=== PATIENT | male | born 1935 | race Caucasian/White ===

== ENCOUNTER 2018-07-13 16:52 | Inpatient (IN) | payer OTHER, MEDICARE ==
[2018-07-13] MEDS ORDERED: SODIUM CHLORIDE 0.9% 1,000 ML IV STA ×2 (16:57)
--- NOTE | 2018-07-13 16:59 | ED ---
Weakness HPI - General Stated complaint: Weakness Time Seen by Provider: 07/13/18 16:56 Source: RN notes reviewed, old records reviewed - History of Present Illness Initial comments: This is an 82-year-old male the ER for evaluation presents today for evaluation of weakness. Patient's poor strain presents with EMS obtained history from patient's daughter who he lives with. Per EMS patient has been increasing decreased activity level today, unable to get out of bed unable to walk, short of breath and has been not been eating or drinking appropriately. Per EMS patient was short of breath per transfer, mildly hypoxic without any significant complaint. Otherwise history obtained from patient's prior chart MD Complaint: generalized weakness, lack of energy, difficulty walking -: days(s) (1) Location: generalized Severity: moderate Severity scale (1-10): 4 Quality: aching Consistency: constant Improves with: none Worsens with: movement, exertion Context: history of similar Associated Symptoms: confusion, fever/chills, loss of appetite, nausea/vomiting , shortness of breath - Related Data Home Medications Medication Instructions Recorded Confirmed Aspirin [[place] Aspirin EC] 81 mg PO DAILY 07/13/18 07/13/18 Chlorthalidone 25 mg PO DAILY 07/13/18 07/13/18 Docusate [Colace] 100 mg PO BID 07/13/18 07/13/18 Flaxseed Oil 1,000 mg PO DAILY 07/13/18 07/13/18 HYDROcodone/APAP 7.5-325MG [[place] 1 tab PO Q6HR PRN 07/13/18 07/13/18 7.5-325] Ipratropium-Albuterol Nebulize 3 ml INHALATION RT-QID 07/13/18 07/13/18 [Duoneb 0.5 mg-3 mg/3 ml Soln] Metoprolol Tartrate [Lopressor] 25 mg PO BID 07/13/18 07/13/18 Niacin 2,000 mg PO DAILY 07/13/18 07/13/18 Rosuvastatin Calcium [Crestor] 5 mg PO DIRECTED 07/13/18 07/13/18 Warfarin Sodium [Coumadin] 3.75 mg PO SUTUTH 07/13/18 07/13/18 Warfarin [Coumadin] 2.5 mg PO MOWEFRSA 07/13/18 07/13/18 Allergies Allergy/AdvReac Type Severity Reaction Status Date / Time No Known Allergies Allergy Verified 07/13/18 17:56 Review of Systems ROS Statement: Those systems with pertinent positive or pertinent negative responses have been documented in the HPI. ROS Other: All systems not noted in ROS Statement are negative. General Exam Limitations: altered mental status General appearance: alert, anxious, lethargic, obese Head exam: Present: atraumatic, normocephalic, normal inspection Eye exam: Present: normal appearance, PERRL, EOMI. Absent: scleral icterus, conjunctival injection, periorbital swelling ENT exam: Present: normal exam, mucous membranes dry Neck exam: Present: normal inspection. Absent: tenderness, meningismus, lymphadenopathy Respiratory exam: Present: wheezes, rales, accessory muscle use, decreased breath sounds, prolonged expiratory. Absent: rhonchi, stridor Cardiovascular Exam: Present: regular rate, bradycardia, normal heart sounds. Absent: systolic murmur, diastolic murmur, rubs, gallop, clicks GI/Abdominal exam: Present: soft, normal bowel sounds. Absent: distended, tenderness, guarding, rebound, rigid Extremities exam: Present: normal inspection, full ROM, pedal edema, joint swelling. Absent: tenderness, calf tenderness Back exam: Present: normal inspection Neurological exam: Present: alert, oriented X3, CN II-XII intact Psychiatric exam: Present: normal affect, normal mood Skin exam: Present: warm, dry, intact, normal color. Absent: rash Course Vital Signs 07/13/18 07/13/18 17:04 20:50 Temperature 98.0 F Pulse Rate 60 60 Respiratory 20 21 Rate Blood Pressure 163/81 166/81 O2 Sat by Pulse 96 96 Oximetry - Reevaluation(s) Reevaluation #1: 07/13/18 21:20 Medical record is reviewed Reevaluation #2: 07/13/18 21:20 Patient is no improvement complaining of weakness shortness of breath EKG Findings - EKG Comments: EKG Findings:: EKG shows rate of 60, QRS 190, QTc 458 Medical Decision Making - Lab Data Result diagrams: 07/13/18 17:15 07/13/18 17:05 Lab Results 07/13/18 07/13/18 07/13/18 Range/Units 17:05 17:05 17:05 WBC (3.8-10.6) k/uL RBC (4.30-5.90) m/uL Hgb (13.0-17.5) gm/dL Hct (39.0-53.0) % MCV (80.0-100.0) fL MCH (25.0-35.0) pg MCHC (31.0-37.0) g/dL RDW (11.5-15.5) % Plt Count (150-450) k/uL Neutrophils % % Lymphocytes % % Monocytes % % Eosinophils % % Basophils % % Neutrophils # (1.3-7.7) k/uL Lymphocytes # (1.0-4.8) k/uL Monocytes # (0-1.0) k/uL Eosinophils # (0-0.7) k/uL Basophils # (0-0.2) k/uL PT (9.0-12.0) sec INR (<1.2) APTT (22.0-30.0) sec Sodium 134 L (137-145) mmol/L Potassium 3.6 (3.5-5.1) mmol/L Chloride 91 L (98-107) mmol/L Carbon Dioxide 33 H (22-30) mmol/L Anion Gap 10 mmol/L BUN 28 H (9-20) mg/dL Creatinine 1.32 H (0.66-1.25) mg/dL Est GFR (CKD-EPI)AfAm 58 (>60 ml/min/1.73 sqM) Est GFR (CKD-EPI)NonAf 51 (>60 ml/min/1.73 sqM) Glucose 154 H (74-99) mg/dL Lactic Ac Sepsis Rflx Plasma Lactic Acid Sebastian 2.1 H* (0.7-2.0) mmol/L Calcium 9.5 (8.4-10.2) mg/dL Phosphorus 2.9 (2.5-4.5) mg/dL Magnesium 1.5 L (1.6-2.3) mg/dL Total Bilirubin 1.1 (0.2-1.3) mg/dL AST 28 (17-59) U/L ALT 42 (21-72) U/L Alkaline Phosphatase 75 (38-126) U/L Total Creatine Kinase 27 L (55-170) U/L CK-MB (CK-2) <0.2 (0.0-2.4) ng/mL CK-MB (CK-2) Rel Index Troponin I 0.056 H* (0.000-0.034) ng/mL Total Protein 6.6 (6.3-8.2) g/dL Albumin 3.8 (3.5-5.0) g/dL Urine Color Urine Appearance (Clear) Urine pH (5.0-8.0) Ur Specific Rule (1.001-1.035) Urine Protein (Negative) Urine Glucose (UA) (Negative) Urine Ketones (Negative) Urine Blood (Negative) Urine Nitrite (Negative) Urine Bilirubin (Negative) Urine Urobilinogen (<2.0) mg/dL Ur Leukocyte Esterase (Negative) Urine WBC (0-5) /hpf Ur Squamous Epith Cells (0-4) /hpf Urine Mucus (None) /hpf 07/13/18 07/13/18 07/13/18 Range/Units 17:05 17:15 18:03 WBC 13.2 H (3.8-10.6) k/uL RBC 5.50 (4.30-5.90) m/uL Hgb 16.6 (13.0-17.5) gm/dL Hct 51.5 (39.0-53.0) % MCV 93.5 (80.0-100.0) fL MCH 30.1 (25.0-35.0) pg MCHC 32.2 (31.0-37.0) g/dL RDW 14.4 (11.5-15.5) % Plt Count 205 (150-450) k/uL Neutrophils % 92 % Lymphocytes % 3 % Monocytes % 3 % Eosinophils % 0 % Basophils % 0 % Neutrophils # 12.1 H (1.3-7.7) k/uL Lymphocytes # 0.5 L (1.0-4.8) k/uL Monocytes # 0.5 (0-1.0) k/uL Eosinophils # 0.0 (0-0.7) k/uL Basophils # 0.0 (0-0.2) k/uL PT 13.2 H (9.0-12.0) sec INR 1.3 H (<1.2) APTT 27.1 (22.0-30.0) sec Sodium (137-145) mmol/L Potassium (3.5-5.1) mmol/L Chloride (98-107) mmol/L Carbon Dioxide (22-30) mmol/L Anion Gap mmol/L BUN (9-20) mg/dL Creatinine (0.66-1.25) mg/dL Est GFR (CKD-EPI)AfAm (>60 ml/min/1.73 sqM) Est GFR (CKD-EPI)NonAf (>60 ml/min/1.73 sqM) Glucose (74-99) mg/dL Lactic Ac Sepsis Rflx Y Plasma Lactic Acid Sebastian (0.7-2.0) mmol/L Calcium (8.4-10.2) mg/dL Phosphorus (2.5-4.5) mg/dL Magnesium (1.6-2.3) mg/dL Total Bilirubin (0.2-1.3) mg/dL AST (17-59) U/L ALT (21-72) U/L Alkaline Phosphatase (38-126) U/L Total Creatine Kinase (55-170) U/L CK-MB (CK-2) (0.0-2.4) ng/mL CK-MB (CK-2) Rel Index Troponin I (0.000-0.034) ng/mL Total Protein (6.3-8.2) g/dL Albumin (3.5-5.0) g/dL Urine Color Urine Appearance (Clear) Urine pH (5.0-8.0) Ur Specific Rule (1.001-1.035) Urine Protein (Negative) Urine Glucose (UA) (Negative) Urine Ketones (Negative) Urine Blood (Negative) Urine Nitrite (Negative) Urine Bilirubin (Negative) Urine Urobilinogen (<2.0) mg/dL Ur Leukocyte Esterase (Negative) Urine WBC (0-5) /hpf Ur Squamous Epith Cells (0-4) /hpf Urine Mucus (None) /hpf 07/13/18 Range/Units 20:40 WBC (3.8-10.6) k/uL RBC (4.30-5.90) m/uL Hgb (13.0-17.5) gm/dL Hct (39.0-53.0) % MCV (80.0-100.0) fL MCH (25.0-35.0) pg MCHC (31.0-37.0) g/dL RDW (11.5-15.5) % Plt Count (150-450) k/uL Neutrophils % % Lymphocytes % % Monocytes % % Eosinophils % % Basophils % % Neutrophils # (1.3-7.7) k/uL Lymphocytes # (1.0-4.8) k/uL Monocytes # (0-1.0) k/uL Eosinophils # (0-0.7) k/uL Basophils # (0-0.2) k/uL PT (9.0-12.0) sec INR (<1.2) APTT (22.0-30.0) sec Sodium (137-145) mmol/L Potassium (3.5-5.1) mmol/L Chloride (98-107) mmol/L Carbon Dioxide (22-30) mmol/L Anion Gap mmol/L BUN (9-20) mg/dL Creatinine (0.66-1.25) mg/dL Est GFR (CKD-EPI)AfAm (>60 ml/min/1.73 sqM) Est GFR (CKD-EPI)NonAf (>60 ml/min/1.73 sqM) Glucose (74-99) mg/dL Lactic Ac Sepsis Rflx Plasma Lactic Acid Sebastian (0.7-2.0) mmol/L Calcium (8.4-10.2) mg/dL Phosphorus (2.5-4.5) mg/dL Magnesium (1.6-2.3) mg/dL Total Bilirubin (0.2-1.3) mg/dL AST (17-59) U/L ALT (21-72) U/L Alkaline Phosphatase (38-126) U/L Total Creatine Kinase (55-170) U/L CK-MB (CK-2) (0.0-2.4) ng/mL CK-MB (CK-2) Rel Index Troponin I (0.000-0.034) ng/mL Total Protein (6.3-8.2) g/dL Albumin (3.5-5.0) g/dL Urine Color Yellow Urine Appearance Clear (Clear) Urine pH 5.5 (5.0-8.0) Ur Specific Rule 1.017 (1.001-1.035) Urine Protein 1+ H (Negative) Urine Glucose (UA) Negative (Negative) Urine Ketones Negative (Negative) Urine Blood Negative (Negative) Urine Nitrite Negative (Negative) Urine Bilirubin Negative (Negative) Urine Urobilinogen <2.0 (<2.0) mg/dL Ur Leukocyte Esterase Negative (Negative) Urine WBC 1 (0-5) /hpf Ur Squamous Epith Cells <1 (0-4) /hpf Urine Mucus Rare H (None) /hpf Disposition Clinical Impression: Dehydration, Weakness, ARF (acute renal failure), Hypomagnesemia Disposition: ADMITTED IP TO THIS HOSP Condition: Fair Is patient prescribed a controlled substance at d/c from ED?: No Referrals: None,Stated [REFERRING] - 1-2 days
[2018-07-13 17:45] LABS: Basophils % (A) 0 %; Eosinophils % (A) 0 %; HCT 51.5 % (39.0-53.0); HGB 16.6 gm/dL (13.0-17.5); Lymphocytes # (A) 0.5 k/uL (1.0-4.8); Lymphocytes % (A) 3 %; MCH 30.1 pg (25.0-35.0); MCHC 32.2 g/dL (31.0-37.0); MCV 93.5 fL (80.0-100.0); Monocytes # (A) 0.5 k/uL (0-1.0); Monocytes % (A) 3 %; Neutrophils # (A) 12.1 k/uL (1.3-7.7); Neutrophils % (A) 92 %; Platelet Count 205 k/uL (150-450); RDW 14.4 % (11.5-15.5); WBC 13.2 k/uL (3.8-10.6)
[2018-07-13 17:58] LABS: Albumin 3.8 g/dL (3.5-5.0); Calcium 9.5 mg/dL (8.4-10.2); Magnesium 1.5 mg/dL (1.6-2.3); Phosphorus 2.9 mg/dL (2.5-4.5); Potassium 3.6 mmol/L (3.5-5.1); Total Bilirubin 1.1 mg/dL (0.2-1.3); Total Protein 6.6 g/dL (6.3-8.2)
[2018-07-13 18:01] LABS: Creatine Kinase 27 U/L (55-170); INR 1.3 (<1.2); Partial Thromboplastin Time 27.1 sec (22.0-30.0); Prothrombin Time 13.2 sec (9.0-12.0)
[2018-07-13 18:14] LABS: Creatine Kinase MB <0.2 ng/mL (0.0-2.4)
--- NOTE | 2018-07-13 18:16 | XR ---
EXAMINATION TYPE: XR chest 2V DATE OF EXAM: 07/13/2018 COMPARISON: NONE HISTORY: Weakness TECHNIQUE: Frontal and lateral views of the chest are obtained. FINDINGS: Heart is enlarged. There is no gross heart failure. I see no pleural effusion. Lungs appea r clear of consolidation. There is a 2 cm sharply marginated nodular density in the left upper lobe. There is left axillary pacemaker with the lead tips over the right ventricle. There are sternal wires . IMPRESSION: Moderate cardiomegaly. Left upper lobe nodule. Recommend comparison with old exams.
[2018-07-13 18:40] LABS: Troponin I 0.056 ng/mL (0.000-0.034)
[2018-07-13 21:05] LABS: Appearance,Urine Clear (Clear); Bilirubin,Urine Negative (Negative); Blood,Urine Negative (Negative); Color,Urine Yellow; Glucose,Urine (UA) Negative (Negative); Ketones,Urine Negative (Negative); Leukocyte Esterase,Urine Negative (Negative); Mucus,Urine Rare /hpf; Nitrite,Urine Negative (Negative); PH, Urine 5.5 (5.0-8.0); Protein,Urine 1+ (Negative); Specific Gravity,Urine 1.017 (1.001-1.035); Squamous Epithelial Cell,Urine <1 /hpf (0-4); Urobilinogen,Urine <2.0 mg/dL (<2.0); WBC,Urine 1 /hpf (0-5)
[2018-07-13] MEDS ORDERED: IPRATROPIUM-ALBUTEROL 3 ML NEB INHALATION PRN (21:20)
[2018-07-13] MEDS: SODIUM CHLORIDE 0.9% 1,000 ML IV SCH (23:28)
[2018-07-13] MEDS: MAGNESIUM SULFATE-D5W PMX 1 GM in DEXTROSE/WATER 1 100ML.BAG IVPB SCH (23:30)
[2018-07-13] MEDS ORDERED: SODIUM CHLORIDE 0.9% 1,000 ML IV ONE (23:42)
[2018-07-14] MEDS ORDERED: ACETAMINOPHEN TAB 325 MG TAB PO PRN (00:24)
[2018-07-14] MEDS: MAGNESIUM SULFATE-D5W PMX 1 GM in DEXTROSE/WATER 1 100ML.BAG IVPB SCH (01:02)
[2018-07-14] MEDS: PIPERACILLIN-TAZOBACTAM 3.375 GM in SODIUM CHLORIDE 0.9% 100 ML IVPB SCH ×3 (01:46→17:19)
[2018-07-14 01:59] LABS: Glucose,Whole Blood 161 mg/dL (75-99)
[2018-07-14 03:19] LABS: INR 1.2 (<1.2); Prothrombin Time 12.6 sec (9.0-12.0)
[2018-07-14] MEDS: hydrALAZINE HCL 50 MG TAB PO SCH ×4 (05:18→21:43)
[2018-07-14] MEDS ORDERED: MAGNESIUM SULFATE SYG 4.06 MEQ/ML SYRINGE ONE (06:34)
[2018-07-14 06:51] LABS: Basophils # (A) 0.1 k/uL (0-0.2); Basophils % (A) 0 %; Eosinophils % (A) 0 %; HCT 54.2 % (39.0-53.0); HGB 17.8 gm/dL (13.0-17.5); Lymphocytes # (A) 1.2 k/uL (1.0-4.8); Lymphocytes % (A) 5 %; MCH 31.2 pg (25.0-35.0); MCHC 32.9 g/dL (31.0-37.0); MCV 94.9 fL (80.0-100.0); Mean Platelet Volume 6.9; Monocytes # (A) 0.8 k/uL (0-1.0); Monocytes % (A) 4 %; Neutrophils # (A) 20.1 k/uL (1.3-7.7); Neutrophils % (A) 90 %; Platelet Count 228 k/uL (150-450); RBC 5.71 m/uL (4.30-5.90); RDW 14.5 % (11.5-15.5); WBC 22.5 k/uL (3.8-10.6)
[2018-07-14] MEDS ORDERED: METOPROLOL TARTRATE 5 MG/5 ML VIAL IVP ONE (06:56)
[2018-07-14] MEDS: METOPROLOL TARTRATE 5 MG/5 ML VIAL IVP SCH ×2 (07:05→07:50)
[2018-07-14] MEDS: IPRATROPIUM-ALBUTEROL 3 ML NEB INHALATION SCH ×4 (07:10→19:57)
[2018-07-14 07:22] LABS: Calcium 9.3 mg/dL (8.4-10.2); Magnesium 2.3 mg/dL (1.6-2.3); Phosphorus 3.1 mg/dL (2.5-4.5)
[2018-07-14] MEDS ORDERED: Potassium Replacement Protocol 1 EACH MISC MISCELLANE PRN (07:27)
[2018-07-14 07:30] LABS: Potassium 3.4 mmol/L (3.5-5.1)
--- NOTE | 2018-07-14 07:40 | HP ---
DOS: 07/13/18 HISTORY AND PHYSICAL CHIEF COMPLAINTS: Weakness. HISTORY OF PRESENT ILLNESS: This 82-year-old gentleman with a past medical history of multiple medical problems including atrial fibrillation, CHF, diabetes, hypertension, hyperlipidemia, CAD CABG being followed by [facility] in the outpatient setting presented complaining of generalized weakness. The patient was apparently living with the daughter who noticed decreased activity and patient unable to get up from the bed to walk and the patient appetite is also poor. The patient was taken to [facility] and was admitted for further evaluation and treatment. The patient was found to have dehydration and lactic acid was also elevated. White count is also elevated. A chest x-ray was also done which I reviewed personally which showed increased bronchovascular markings bilaterally raising the suspicion of pneumonia. The patient also found to have a fever up to 102 degrees Fahrenheit. Broad-spectrum IV antibiotics initiated at this time. There is no history of any headache, loss of consciousness, seizures. PAST MEDICAL HISTORY: History of atrial ablation, CHF, diabetes, hypertension, history of CAD, CABG. MEDICATIONS: 1. Coumadin 2.5 mg Saturday, Saturday, Saturday, Saturday and 3.5 on other days. 2. Crestor 5 mg p.o. daily. 3. Niacin 2000 daily. 4. Lopressor 25 mg b.i.d. 5. DuoNeb q.i.d. 6. Hydrocodone 1 tablet every 6 hours p.r.n. 7. Flaxseed oil. 8. Colace 100 mg p.o. b.i.d. 9. Chlorthalidone 25 mg. 10.Aspirin 81 mg daily. ALLERGIES: None. FAMILY HISTORY: History of chronic cardiac disease in the family. SOCIAL HISTORY: Previous history of smoking. No history of current smoking or alcohol intake. REVIEW OF SYSTEMS: ENT: No diminished hearing or vision. CARDIOVASCULAR: As mentioned earlier. RESPIRATORY: As mentioned earlier. GI no nausea. : No dysuria. NERVOUS SYSTEM: No numbness or weakness. ALLERGY/IMMUNOLOGY: As mentioned earlier. HEMATOLOGY/ONCOLOGY: No history of anemia. ENDOCRINE: No history of diabetes or hypothyroidism. CONSTITUTIONAL: As mentioned earlier. Dermatology: Negative. Rheumatology: Negative. Psychiatry: As mentioned earlier. PHYSICAL EXAMINATION: GENERAL: The patient is alert, oriented x3. VITAL SIGNS: Pulse 60, blood pressure 187/80, respirations 16, temperature 98 degrees, pulse ox 97% on 4 L. HEENT is conjunctivae normal. Oral mucosa moist. Neck is no jugular venous distention. No carotid bruit. No lymph node enlargement. CARDIOVASCULAR: S1, S2 muffled. RESPIRATORY: Breath sounds diminished in the bases. A few scattered rhonchi and crackles. Status post coronary artery bypass grafting. ABDOMEN: Soft, obese, nontender. No mass. Legs: Bilateral leg edema, chronic with hyperpigmentation changes. NERVOUS SYSTEM: Higher functions as mentioned earlier, diffusely weak. Full exam not possible. Skin as mentioned. JOINTS: No active deforming arthropathy. Lymphatics: No lymph nodes palpable in the neck, axillae or groin. SKIN: No ulcer, rash or bleeding. LABS: At this time shows WBC 13.2, and INR 1.3. Sodium 134, creatinine is 1.32. Lactic acid is 2.1. Troponin 0.056. ASSESSMENT: 1. Generalized weakness with possible bilateral pneumonia with sepsis. 2. Elevated lactic acid. 3. Increased creatinine with chronic kidney stage 3. 4. Hyponatremia. 5. Increased WBC. 6. Hypertension. 7. Atrial fibrillation. 8. History of congestive heart failure. 9. Diabetes mellitus type 2. 10.History of appendectomy. 11.Coronary artery disease/coronary artery bypass grafting. 12.History of degenerative joint disease. 13.History of pacemaker. 14.History of atrial fibrillation. RECOMMENDATIONS AND DISCUSSION: In this 82-year-old gentleman who presented with multiple complex medical issues , we will monitor the patient closely, continue the current medications, management and symptomatic treatment. We will initiate broad-spectrum IV antibiotics, bronchodilators and monitor the patient closely. Other than that, I would also recommend Cardiology, pulmonology consultations. Guarded prognosis because of multiple complex medical issues. See orders for details and discussed with the family at length. Further recommendations were discussed with staff. Medication reconciliation was done. Once again the prognosis is guarded. We will follow the patient with serial chest x- rays. Cultures also will be obtained. MMODL / IJN: [id number] / IZABELA
[2018-07-14] MEDS: POTASSIUM CHLORIDE 10 MEQ in WATER FOR INJECTION 1 100ML.BAG IVPB SCH ×2 (07:47→10:07)
[2018-07-14] MEDS: INSULIN ASPART 100 UNIT/ML 1 ML 10 ML VIAL SQ SCH ×4 (07:48→20:58)
[2018-07-14 07:50] LABS: Glucose,Whole Blood 194 mg/dL (75-99)
[2018-07-14] MEDS ORDERED: METOPROLOL TARTRATE 25 MG TAB PO SCH (09:00)
[2018-07-14] MEDS ORDERED: NON-FORMULARY DRUG (Flaxseed Oil [Flaxseed Oil] 1,000 MG) PO SCH (09:00)
[2018-07-14] MEDS ORDERED: CHLORTHALIDONE 25 MG TAB PO SCH (09:00)
[2018-07-14] MEDS ORDERED: HEPARIN SODIUM,PORCINE 5,000 UNIT/ML 1 ML VIAL SQ SCH (09:00)
[2018-07-14] MEDS ORDERED: ATORVASTATIN 10 MG TAB PO SCH (09:00)
[2018-07-14] MEDS ORDERED: SPIRONOLACTONE-HCTZ 25-25MG 1 EACH TAB PO SCH (09:00)
[2018-07-14] MEDS: NIACIN TR 500 MG CAPSULE.ER PO SCH (10:06)
[2018-07-14] MEDS: SPIRONOLACTONE 25 MG TAB PO SCH (10:06)
[2018-07-14] MEDS: ATORVASTATIN 20 MG TAB PO SCH (10:06)
[2018-07-14] MEDS: DOCUSATE 100 MG CAP PO SCH ×2 (10:06→21:43)
[2018-07-14] MEDS: ASPIRIN 81 MG PO SCH (10:07)
[2018-07-14 10:49] LABS: ABG Base Excess 6.1 mmol/L; ABG HCO3 31 mmol/L (21-25); ABG Oxygen Saturation 98.7 % (94-97); ABG PCO2 47 mmHg (35-45); ABG PH 7.42 (7.35-7.45); ABG PO2 176 mmHg (83-108); ABG TCO2 32 mmol/L (19-24)
--- NOTE | 2018-07-14 12:29 | P.CNPUL ---
History of Present Illness Consult date: 07/14/18 Requesting physician: Yosef Rutledge Reason for consult: pneumonia Chief complaint: Weakness History of present illness: This is an 82-year-old white male with history of multiple medical problems including chronic atrial fibrillation, congestive heart failure, COPD, hypertension, hyperlipidemia, coronary artery disease and previous CABG. Patient usually gets his medical care through the [facility], however this time he was brought in by his daughter who lives with the patient, and she has been noticing that the patient is getting generally weak, unable to get up from the bed to walk although he does have a walker and sometimes he uses an electric wheelchair. Upon evaluation in the ER, the patient was noted to be dehydrated, his lactic acid was also noted to be elevated, and a chest x-ray was done which I reviewed myself, suspicious for infiltrate in the right perihilar area and possibly in the left lower lobe. Patient had a temp of 102 on admission, hence he was started on IV antibiotics, bronchodilators, and this consult was initiated. Patient was also started back on his usual cardiac meds including Coumadin. The patient himself is a very poor historian, when asked about his symptoms, patient suggested that he call his . Review of Systems ROS unobtainable: due to mental status Past Medical History Past Medical History: Atrial Fibrillation, Coronary Artery Disease (CAD), Heart Failure, COPD, Diabetes Mellitus, Hypertension History of Any Multi-Drug Resistant Organisms: None Reported Past Surgical History: Appendectomy, Coronary Bypass/CABG, Heart Catheterization , Joint Replacement, Orthopedic Surgery, Pacemaker Past Anesthesia/Blood Transfusion Reactions: No Reported Reaction Type of Cardiac Device: Permanent Pacemaker Device Placement Date:: 2004 Past Psychological History: No Psychological Hx Reported Smoking Status: Former smoker Past Alcohol Use History: None Reported Past Drug Use History: None Reported - Past Family History Father Additional Family Medical History / Comment(s): chronic cardiac disease Medications and Allergies Home Medications Medication Instructions Recorded Confirmed Type Aspirin [[place] Aspirin EC] 81 mg PO DAILY 07/13/18 07/13/18 History Chlorthalidone 25 mg PO DAILY 07/13/18 07/13/18 History Docusate [Colace] 100 mg PO BID 07/13/18 07/13/18 History Flaxseed Oil 1,000 mg PO DAILY 07/13/18 07/13/18 History HYDROcodone/APAP 7.5-325MG [[place] 1 tab PO Q6HR PRN 07/13/18 07/13/18 History 7.5-325] Ipratropium-Albuterol Nebulize 3 ml INHALATION RT-QID 07/13/18 07/13/18 History [Duoneb 0.5 mg-3 mg/3 ml Soln] Metoprolol Tartrate [Lopressor] 25 mg PO BID 07/13/18 07/13/18 History Niacin 2,000 mg PO DAILY 07/13/18 07/13/18 History Rosuvastatin Calcium [Crestor] 5 mg PO DIRECTED 07/13/18 07/13/18 History Warfarin Sodium [Coumadin] 3.75 mg PO SUTUTH 07/13/18 07/13/18 History Warfarin [Coumadin] 2.5 mg PO MOWEFRSA 07/13/18 07/13/18 History Allergies Allergy/AdvReac Type Severity Reaction Status Date / Time No Known Allergies Allergy Verified 07/13/18 17:56 Physical Exam Vitals: Vital Signs Temp Pulse Resp BP Pulse Ox 07/14/18 11:30 60 07/14/18 11:22 60 07/14/18 11:00 60 27 H 137/77 95 07/14/18 10:00 60 22 156/84 96 07/14/18 09:00 99.2 F 60 163/84 97 07/14/18 08:00 60 22 170/86 96 07/14/18 07:21 94 L 07/14/18 07:00 129 H 178/88 95 07/14/18 05:53 92 L 07/14/18 05:00 60 22 174/94 88 L 07/14/18 04:00 98.3 F 60 20 162/77 93 L 07/14/18 03:00 60 23 161/83 91 L 07/14/18 02:00 60 50 H 173/82 92 L 07/14/18 01:00 60 25 H 173/82 93 L 07/14/18 00:00 102.9 F H 60 17 174/74 93 L 07/13/18 23:32 98.1 F 60 18 174/74 98 07/13/18 22:13 60 16 187/80 97 07/13/18 20:50 60 21 166/81 96 12/30/18 19:00 60 24 158/72 12/30/18 18:33 27 H 96 07/13/18 17:04 98.0 F 60 20 163/81 96 Intake and Output 07/13/18 07/14/18 07/14/18 22:59 06:59 14:59 Intake Total 260 440 Output Total 525 550 Balance -265 -110 Intake: IV 60 120 Sodium Chloride 0.9% 1, 60 120 000 ml @ 20 mls/hr IV . Q24H [facility] Rx#:[id number] Intake, IV Titration 200 200 Amount Magnesium Sulfate-D5w Pmx 100 1 gm In Dextrose/Water 1 100ml.bag @ 100 mls/hr IVPB Q1H [facility] Rx#: [id number] Piperacillin-Tazobactam 3 100 100 .375 gm In Sodium Chloride 0.9% 100 ml @ 25 mls/hr IVPB Q8H [facility] Rx#: [id number] Potassium Chloride 10 meq 100 In Water For Injection 1 100ml.bag @ 100 mls/hr IVPB Q1H [facility] Rx#: [id number] Oral 120 Output: Urine 525 550 Other: Voiding Method Indwelling Catheter Weight 113.398 kg 128.2 kg Physical Exam: Revealed 82-year-old white male on non-rebreather mask, in no distress, very comfortable while on high FiO2. Head: Atraumatic, normocephalic. HEENT:[Neck is supple.] [No neck masses.] [No thyromegaly.] [No JVD.] Chest: [Crackles and rhonchi and wheezes noted bilaterally especially at the bases diminished breath sounds also noted anteriorly.] Cardiac Exam: [Irregular irregular rhythm Normal S1 and S2, no S3 gallop, 2/6 systolic murmur thought the precordium. Abdomen: [Obese, Soft, nontender, no megaly, no rebound, no guarding, normal bowel sounds.] Extremities: [No clubbing, 1+ bipedal edema, chronic hyperpigmentation and venous stasis changes noted in lower extremities bilaterally..] Neurological Exam: Generally weak, otherwise [No focal neurologic deficit.] Psychiatric: Normal mood, affect, questionable mental status. Questionable insight. Lymphatics: No lymphadenopathy. Results - Laboratory Findings CBC and BMP: 07/14/18 06:31 07/14/18 06:31 ABG ABG pH 7.42 (7.35-7.45) 07/14/18 10:50 ABG pCO2 47 mmHg (35-45) H 07/14/18 10:50 ABG pO2 176 mmHg (83-108) H 07/14/18 10:50 ABG O2 Saturation 98.7 % (94-97) H 07/14/18 10:50 PT/INR, D-dimer PT 12.6 sec (9.0-12.0) H 07/14/18 02:50 INR 1.2 (<1.2) H 07/14/18 02:50 Abnormal lab findings: Abnormal Labs 07/13/18 07/13/18 07/13/18 17:05 17:05 17:05 WBC Hgb Hct Neutrophils # Lymphocytes # PT INR ABG pCO2 ABG pO2 ABG HCO3 ABG Total CO2 ABG O2 Saturation Sodium 134 L Potassium Chloride 91 L Carbon Dioxide 33 H BUN 28 H Creatinine 1.32 H Glucose 154 H POC Glucose (mg/dL) Plasma Lactic Acid Sebastian 2.1 H* Magnesium 1.5 L Total Creatine Kinase 27 L Troponin I 0.056 H* Urine Protein Urine Mucus 07/13/18 07/13/18 07/13/18 17:05 17:15 20:40 WBC 13.2 H Hgb Hct Neutrophils # 12.1 H Lymphocytes # 0.5 L PT 13.2 H INR 1.3 H ABG pCO2 ABG pO2 ABG HCO3 ABG Total CO2 ABG O2 Saturation Sodium Potassium Chloride Carbon Dioxide BUN Creatinine Glucose POC Glucose (mg/dL) Plasma Lactic Acid Sebastian Magnesium Total Creatine Kinase Troponin I Urine Protein 1+ H Urine Mucus Rare H 07/13/18 07/14/18 07/14/18 21:26 01:56 02:50 WBC Hgb Hct Neutrophils # Lymphocytes # PT 12.6 H INR 1.2 H ABG pCO2 ABG pO2 ABG HCO3 ABG Total CO2 ABG O2 Saturation Sodium Potassium Chloride Carbon Dioxide BUN Creatinine Glucose POC Glucose (mg/dL) 161 H Plasma Lactic Acid Sebastian 2.8 H* Magnesium Total Creatine Kinase Troponin I Urine Protein Urine Mucus 07/14/18 07/14/18 07/14/18 02:50 06:31 06:31 WBC 22.5 H Hgb 17.8 H Hct 54.2 H Neutrophils # 20.1 H Lymphocytes # PT INR ABG pCO2 ABG pO2 ABG HCO3 ABG Total CO2 ABG O2 Saturation Sodium 134 L Potassium 3.4 L Chloride 96 L Carbon Dioxide BUN 22 H Creatinine Glucose 194 H POC Glucose (mg/dL) Plasma Lactic Acid Sebastian Magnesium Total Creatine Kinase Troponin I 0.086 H* Urine Protein Urine Mucus 07/14/18 07/14/18 07:25 10:50 WBC Hgb Hct Neutrophils # Lymphocytes # PT INR ABG pCO2 47 H ABG pO2 176 H ABG HCO3 31 H ABG Total CO2 32 H ABG O2 Saturation 98.7 H Sodium Potassium Chloride Carbon Dioxide BUN Creatinine Glucose POC Glucose (mg/dL) 194 H Plasma Lactic Acid Sebastian Magnesium Total Creatine Kinase Troponin I Urine Protein Urine Mucus - Diagnostic Findings Chest x-ray: image reviewed (As noted in HPI.) Assessment and Plan Assessment: Impression: 1 strongly suspect bilateral pneumonia, community-acquired, and sepsis. 2 elevated lactic acid secondary to sepsis. 3 brief episode of asystole requiring CPR for few minutes, with spontaneous recovery of pulse and circulation. This happened early this morning around 6: 20 AM while in the ICU, patient was about to be intubated, but was not done. Since the patient responded to CPR only. 4 generalized weakness secondary to sepsis and pneumonia 5 electrolytes imbalance mostly hyponatremia exact etiology is not clear. And hypokalemia 6 chronic atrial fibrillation 7 type 2 diabetes 8 previous CABG 9 history of pacemaker implantation 10 chronic kidney disease stage III. 11 acute hypoxic respiratory failure secondary to COPD and pneumonia. 12 acute exacerbation of COPD. Patient had remote smoking history. 13 elevated troponin, will be addressed by cardiology. Recommendation: Continue present treatment plan including antibiotics, bronchodilators, resume his usual cardiac meds, patient was already started on Zosyn and Coumadin was resumed. ABG on 100% FiO2 showed a pO2 of 176 pCO2 of 47 pH of 7.42, hence he will be switched to a 50% Ventimask. Patient will definitely remain in the ICU for the next 24 hours at least, and will follow closely. Time with Patient: Greater than 30
[2018-07-14 13:01] LABS: Glucose,Whole Blood 170 mg/dL (75-99)
[2018-07-14] MEDS ORDERED: HEPARIN SODIUM,PORCINE 5,000 UNIT/ML 1 ML VIAL IV PRN (14:19)
[2018-07-14] MEDS ORDERED: HEPARIN SODIUM,PORCINE 5,000 UNIT/ML 1 ML VIAL IV ONE (14:19)
--- NOTE | 2018-07-14 14:20 | P.CRDCN ---
History of Present Illness History of present illness: This is Dr. 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 Called last evening for management of hypertension Hydralazine begun This morning the patient went into torsade. I reviewed his twelve-lead ECG at baseline which shows underlying atrial fibrillation with a ventricular paced rhythm. Pacemaker seems to be functioning normally Telemetry strips show nonsustained runs of PMVT. Magnesium 1.5. Potassium 3.4 Baseline QT interval is normal ROS: No fever chills or rigors, no cough, phlegm or expectoration, no nausea, vomiting or diarrhea, no hematuria, dysuria, no musculoskeletal complaints, no strokes or seizures, no skin lesions. EXAMINATION Patient awake alert line blood pressure elevated Breath sounds are reduced bilaterally bilateral rhonchi Heart sounds are soft and distant Pacemaker site within normal limits Abdomen is soft REVIEW OF LABS, ECG Magnesium 1.5 potassium mildly reduced Past Medical History Past Medical History: Atrial Fibrillation, Coronary Artery Disease (CAD), Heart Failure, COPD, Diabetes Mellitus, Hypertension History of Any Multi-Drug Resistant Organisms: None Reported Past Surgical History: Appendectomy, Coronary Bypass/CABG, Heart Catheterization , Joint Replacement, Orthopedic Surgery, Pacemaker Past Anesthesia/Blood Transfusion Reactions: No Reported Reaction Type of Cardiac Device: Permanent Pacemaker Device Placement Date:: 2004 Past Psychological History: No Psychological Hx Reported Smoking Status: Former smoker Past Alcohol Use History: None Reported Past Drug Use History: None Reported - Past Family History Father Additional Family Medical History / Comment(s): chronic cardiac disease Medications and Allergies Home Medications Medication Instructions Recorded Confirmed Type Aspirin [Alfarata Aspirin EC] 81 mg PO DAILY 07/13/18 07/13/18 History Chlorthalidone 25 mg PO DAILY 07/13/18 07/13/18 History Docusate [Colace] 100 mg PO BID 07/13/18 07/13/18 History Flaxseed Oil 1,000 mg PO DAILY 07/13/18 07/13/18 History HYDROcodone/APAP 7.5-325MG [[place] 1 tab PO Q6HR PRN 07/13/18 07/13/18 History 7.5-325] Ipratropium-Albuterol Nebulize 3 ml INHALATION RT-QID 07/13/18 07/13/18 History [Duoneb 0.5 mg-3 mg/3 ml Soln] Metoprolol Tartrate [Lopressor] 25 mg PO BID 07/13/18 07/13/18 History Niacin 2,000 mg PO DAILY 07/13/18 07/13/18 History Rosuvastatin Calcium [Crestor] 5 mg PO DIRECTED 07/13/18 07/13/18 History Warfarin Sodium [Coumadin] 3.75 mg PO SUTUTH 07/13/18 07/13/18 History Warfarin [Coumadin] 2.5 mg PO MOWEFRSA 07/13/18 07/13/18 History Allergies Allergy/AdvReac Type Severity Reaction Status Date / Time No Known Allergies Allergy Verified 07/13/18 17:56 Physical Exam Vitals: Vital Signs Temp Pulse Resp BP Pulse Ox 07/14/18 10:00 60 22 156/84 96 07/14/18 09:00 99.2 F 60 163/84 97 07/14/18 08:00 60 22 170/86 96 07/14/18 07:21 94 L 07/14/18 07:00 129 H 178/88 95 07/14/18 05:53 92 L 07/14/18 05:00 60 22 174/94 88 L 07/14/18 04:00 98.3 F 60 20 162/77 93 L 07/14/18 03:00 60 23 161/83 91 L 07/14/18 02:00 60 50 H 173/82 92 L 07/14/18 01:00 60 25 H 173/82 93 L 07/14/18 00:00 102.9 F H 60 17 174/74 93 L 07/13/18 23:32 98.1 F 60 18 174/74 98 07/13/18 22:13 60 16 187/80 97 07/13/18 20:50 60 21 166/81 96 07/13/18 19:00 60 24 158/72 07/13/18 18:33 27 H 96 07/13/18 17:04 98.0 F 60 20 163/81 96 Intake and Output 07/13/18 07/14/18 07/14/18 22:59 06:59 14:59 Intake Total 260 400 Output Total 525 450 Balance -265 -50 Intake: IV 60 80 Sodium Chloride 0.9% 1, 60 80 000 ml @ 20 mls/hr IV . Q24H [facility] Rx#:[id number] Intake, IV Titration 200 200 Amount Magnesium Sulfate-D5w Pmx 100 1 gm In Dextrose/Water 1 100ml.bag @ 100 mls/hr IVPB Q1H [facility] Rx#: [id number] Piperacillin-Tazobactam 3 100 100 .375 gm In Sodium Chloride 0.9% 100 ml @ 25 mls/hr IVPB Q8H [facility] Rx#: [id number] Potassium Chloride 10 meq 100 In Water For Injection 1 100ml.bag @ 100 mls/hr IVPB Q1H [facility] Rx#: [id number] Oral 120 Output: Urine 525 450 Other: Voiding Method Indwelling Catheter Weight 113.398 kg 128.2 kg Results 07/14/18 06:31 07/14/18 06:31 Cardiac Enzymes 07/13/18 07/13/18 07/14/18 Range/Units 17:05 17:05 02:50 AST 28 (17-59) U/L CK-MB (CK-2) <0.2 (0.0-2.4) ng/mL Troponin I 0.056 H* 0.086 H* (0.000-0.034) ng/mL Coagulation 07/13/18 07/14/18 Range/Units 17:05 02:50 PT 13.2 H 12.6 H (9.0-12.0) sec APTT 27.1 (22.0-30.0) sec CBC 07/13/18 07/14/18 Range/Units 17:15 06:31 WBC 13.2 H 22.5 H (3.8-10.6) k/uL RBC 5.50 5.71 (4.30-5.90) m/uL Hgb 16.6 17.8 H (13.0-17.5) gm/dL Hct 51.5 54.2 H (39.0-53.0) % Plt Count 205 228 (150-450) k/uL Comprehensive Metabolic Panel 07/13/18 07/14/18 Range/Units 17:05 06:31 Sodium 134 L 134 L (137-145) mmol/L Potassium 3.6 3.4 L (3.5-5.1) mmol/L Chloride 91 L 96 L (98-107) mmol/L Carbon Dioxide 33 H 27 (22-30) mmol/L BUN 28 H 22 H (9-20) mg/dL Creatinine 1.32 H 1.09 (0.66-1.25) mg/dL Glucose 154 H 194 H (74-99) mg/dL Calcium 9.5 9.3 (8.4-10.2) mg/dL AST 28 (17-59) U/L ALT 42 (21-72) U/L Alkaline Phosphatase 75 (38-126) U/L Total Protein 6.6 (6.3-8.2) g/dL Albumin 3.8 (3.5-5.0) g/dL Current Medications Generic Name Dose Route Start Last Admin Trade Name Freq PRN Reason Stop Dose Admin Acetaminophen 650 mg 07/14/18 00:24 07/14/18 01:02 Tylenol Tab PO 650 mg Q6HR PRN Administration Fever and/ or Pain Hydrocodone Bitart/Acetaminophen 1 each 07/14/18 01:42 [place] 7.5-325 PO Q6HR PRN Pain Albuterol/Ipratropium 3 ml 07/13/18 21:20 Duoneb 0.5 Mg-3 Mg/3 Ml Soln INHALATION RT-Q4H PRN Shortness Of Breath Or Wheezing Albuterol/Ipratropium 3 ml 07/14/18 08:00 07/14/18 07:10 Duoneb 0.5 Mg-3 Mg/3 Ml Soln INHALATION Not Given RT-QID [facility] Aspirin 81 mg 07/14/18 09:00 07/14/18 10:07 Aspirin PO 81 mg DAILY [facility] Administration Atorvastatin Calcium 20 mg 07/14/18 09:00 07/14/18 10:06 Lipitor PO 20 mg DAILY [facility] Administration Carvedilol 6.25 mg 07/14/18 17:30 Coreg PO BID-W/MEALS [facility] Docusate Sodium 100 mg 07/14/18 09:00 07/14/18 10:06 Colace PO 100 mg BID [facility] Administration Heparin Sodium (Porcine) 5,000 unit 07/14/18 09:00 07/14/18 10:05 Heparin SQ 5,000 unit Q12HR [facility] Administration Hydralazine HCl 50 mg 07/14/18 05:00 07/14/18 10:09 Apresoline PO 50 mg TID [facility] Administration Sodium Chloride 1,000 mls @ 20 mls/hr 07/13/18 21:30 07/13/18 23:28 Saline 0.9% IV 20 mls/hr .Q24H [facility] Administration Piperacillin Sod/Tazobactam 100 mls @ 25 mls/hr 07/14/18 01:00 07/14/18 10:05 Sod 3.375 gm/ Sodium Chloride IVPB 25 mls/hr Q8H [facility] Administration Insulin Aspart 0 unit 07/14/18 07:30 07/14/18 07:48 Novolog SQ 3 unit ACHS [facility] Administration Protocol Miscellaneous Information 1 each 07/14/18 07:27 Potassium Per Protocol MISCELLANE DAILY PRN Per Protocol Protocol Niacin 2,000 mg 07/14/18 09:00 07/14/18 10:06 Niacin Tr PO 2,000 mg DAILY [facility] Administration Spironolactone 50 mg 07/14/18 09:00 07/14/18 10:06 Aldactone PO 50 mg DAILY [facility] Administration Warfarin Sodium 3.75 mg 07/15/18 18:00 Coumadin PO [id number]@1800 [facility] Warfarin Sodium 2.5 mg 07/14/18 18:00 Coumadin PO [email or web address]@1800 [facility] Intake and Output 07/13/18 07/14/18 07/14/18 22:59 06:59 14:59 Intake Total 260 400 Output Total 525 450 Balance -265 -50 Intake: IV 60 80 Sodium Chloride 0.9% 1, 60 80 000 ml @ 20 mls/hr IV . Q24H [facility] Rx#:[id number] Intake, IV Titration 200 200 Amount Magnesium Sulfate-D5w Pmx 100 1 gm In Dextrose/Water 1 100ml.bag @ 100 mls/hr IVPB Q1H [facility] Rx#: [id number] Piperacillin-Tazobactam 3 100 100 .375 gm In Sodium Chloride 0.9% 100 ml @ 25 mls/hr IVPB Q8H [facility] Rx#: [id number] Potassium Chloride 10 meq 100 In Water For Injection 1 100ml.bag @ 100 mls/hr IVPB Q1H [facility] Rx#: [id number] Oral 120 Output: Urine 525 450 Other: Voiding Method Indwelling Catheter Weight 113.398 kg 128.2 kg 07/14/18 06:31 07/14/18 06:31
--- NOTE | 2018-07-14 15:11 | ECHOF ---
Referral Reason:cardiac arrest MEASUREMENTS -------- HEIGHT: 182.9 cm WEIGHT: 117.9 kg BP: 153/84 IVSd: 1.6 cm (0.6 - 1.1) LVIDd: 4.3 cm (3.9 - 5.3) LVPWd: 1.6 cm (0.6 - 1.1) IVSs: 2.1 cm LVIDs: 3.4 cm LVPWs: 1.5 cm LA Diam: 3.3 cm (2.7 - 3.8) RVIDd: 3.5 cm (< 3.3) LAESV Index (A-L): 32.98 ml/m Ao Diam: 3.5 cm (2.0 - 3.7) AV Cusp: 2.1 cm (1.5 - 2.6) EPSS: 0.3 cm MV E Ashu: 1.32 m/s MV DecT: 133 ms MV A Ashu: 0.42 m/s MV E/A Ratio: 3.18 AV maxP.49 mmHg AV meanP.76 mmHg RAP: 5.00 mmHg RVSP: 32.48 mmHg MV EF SLOPE: 103.44 mm/s (70 - 150) MV EXCURSION: 18.39 mm (> 18.000) FINDINGS -------- Paced rhythm. This was a technically adequate study. The left ventricular size is normal. There is moderate concentric left ventricular hypertrophy. O verall left ventricular systolic function is mild-moderately impaired with, an EF between 40 - 45 %. Apical lateral LV wall motion is hypokinetic. Apical septum LV wall motion is hypokinetic. An terseptal Hypokinesis The right ventricle is mildly enlarged. LA is midly dilated 29-33ml/m2. The right atrium is normal in size. 3 ml of Lumason was utilized for enhancement of images. There is mild aortic valve sclerosis. Peak/mean gradient across the Aortic Valve is 12.49mmHg / 6.7 6mmHg. Mild mitral annular calcification present. There is trace to mild mitral regurgitation. Mild tricuspid regurgitation present. Right ventricular systolic pressure is normal at < 35 mmHg. Trace/mild (physiologic) pulmonic regurgitation. The aortic root size is normal. Normal inferior vena cava with normal inspiratory collapse consistent with estimated right atrial pre ssure of 5 mmHg. The inferior vena cava is mildly dilated. There is no pericardial effusion. CONCLUSIONS -------- 1. Paced rhythm. 2. This was a technically adequate study. 3. The left ventricular size is normal. 4. There is moderate concentric left ventricular hypertrophy. 5. Overall left ventricular systolic function is mild-moderately impaired with, an EF between 40 - 45 %. 6. Apical lateral LV wall motion is hypokinetic. 7. Apical septum LV wall motion is hypokinetic. 8. Anterseptal Hypokinesis 9. The right ventricle is mildly enlarged. 10. LA is midly dilated 29-33ml/m2. 11. The right atrium is normal in size. 12. 3 ml of Lumason was utilized for enhancement of images. 13. There is mild aortic valve sclerosis. 14. Peak/mean gradient across the Aortic Valve is 12.49mmHg / 6.76mmHg. 15. Mild mitral annular calcification present. 16. There is trace to mild mitral regurgitation. 17. Mild tricuspid regurgitation present. 18. Right ventricular systolic pressure is normal at < 35 mmHg. 19. Trace/mild (physiologic) pulmonic regurgitation. 20. The aortic root size is normal. 21. Normal inferior vena cava with normal inspiratory collapse consistent with estimated right atrial pressure of 5 mmHg. 22. The inferior vena cava is mildly dilated. 23. There is no pericardial effusion. [employer]BORIST CLIMBER: Alicia Estrada RDCS
[2018-07-14] MEDS: HEPARIN SOD,PORK IN 0.45% NACL 25,000 UNIT in 0.45% NACL 1 250ML.BAG IV SCH (15:17)
[2018-07-14] MEDS: CARVEDILOL 6.25 MG TAB PO SCH (17:22)
[2018-07-14] MEDS: WARFARIN 2.5 MG TAB PO SCH (17:23)
[2018-07-14 17:44] LABS: Glucose,Whole Blood 172 mg/dL (75-99)
[2018-07-14] MEDS ORDERED: VANCOMYCIN 1,000 MG in SODIUM CHLORIDE 0.9% 250 ML IVPB STA (17:54)
[2018-07-14] MEDS ORDERED: VANCOMYCIN IV PER PHARMACY 1 EACH MISC MISCELLANE PRN (17:54)
[2018-07-14] MEDS ORDERED: VANCOMYCIN 2,250 MG in SODIUM CHLORIDE 0.9% 500 ML 500 ML IVPB ONE (18:30)
--- NOTE | 2018-07-14 18:30 | PN ---
PROGRESS NOTE DATE OF SERVICE: 07/14/2018 DATE OF SERVICE: This 82-year-old gentleman who was admitted with generalized weakness and possible bilateral pneumonia with sepsis also had elevated lactic acid. The patient also seen by Dr. Pandey and cardiology also. The patient was started on broad-spectrum IV antibiotics. Patient's original complaint was generalized weakness at this time. The patient this morning patient also had a brief episode of asystolic. CPR was done for a few minutes and torsades meghana pointes was suspected. Cardiology is following the patient closely and also evaluate the medications also. A 2D echo with Doppler showed an ejection fraction of 40-45 percent and mild aortic valve sclerosis. An EKG done yesterday showed atrial fibrillation with wide-complex QRS . PAST MEDICAL HISTORY: Reviewed. REVIEW OF SYSTEM: CARDIOVASCULAR: No angina or palpitations. RESPIRATORY: As mentioned earlier. GI no nausea or vomiting. : No dysuria. CENTRAL NERVOUS SYSTEM: As mentioned earlier. CURRENT MEDICATIONS ARE: Reviewed and include: 1. Tylenol 650 q.6h p.r.n. 2. [place] 5 mg q.6h p.r.n. 3. DuoNeb q.i.d. and p.r.n. 4. Aspirin 81 mg. 5. Lipitor 80 mg daily. 6. Coreg 6.25 mg b.i.d. 7. Colace 100 mg. 8. Heparin IV. 9. Apresoline. 10.NovoLog. 11.Niacin. 12.Zosyn 3.75 IV q.8h. 13.Aldactone. 14.Coumadin 2.5 and 3.75 mg. PHYSICAL EXAM: Patient is alert, oriented x3. Pulse is 60, blood pressure is 109/73, respiratory rate 17, temp 97.7, pulse ox 94% on 40% Venti mask. HEENT: Conjunctivae normal. Oral mucosa moist. NECK is no jugular venous distention. No carotid bruit. No lymph node enlargement. CARDIOVASCULAR SYSTEM: S1, S2. RESPIRATORY: Breath sounds diminished in the bases. Scattered rhonchi and crackles. Expiratory wheezing. ABDOMEN: Soft, obese, nontender. LEGS are no edema. No swelling. NERVOUS SYSTEM: No focal deficits. LAB STUDIES: Troponin 22.5, hemoglobin 17.8. ABGs noted, pCO2 47, sodium 132, potassium 3.4, glucose noted. The cultures are pending. Influenza negative. ASSESSMENT: 1. Possible bilateral pneumonia possibly gram-negative, possibly community- acquired with sepsis present on admission with acute hypoxic respiratory failure. 2. Elevated lactic acid secondary to sepsis. 3. Change in mental status acute metabolic acidosis secondary to sepsis. 4. Increased creatinine with chronic kidney disease stage 3. 5. Hyponatremia. 6. Increased WBC. 7. Torsades meghana pointes and brief cardiac arrest. 8. Hypertension. 9. Atrial fibrillation with bradycardia history. 10.History of congestive heart failure. 11.Diabetes mellitus type 2. 12.History of appendectomy. 13.History of coronary artery disease, coronary artery bypass grafting. 14.History of degenerative joint disease. 15.History of pacemaker. 16.History of atrial fibrillation. 17.Congestive heart failure with chronic systolic dysfunction, ejection fraction 40-45 percent. RECOMMENDATIONS AND DISCUSSION: Recommend to continue current medications, management. Symptomatic treatment. Otherwise, at this time, I recommend continue with broad-spectrum IV antibiotics. Avoid QT prolonging medications. Closely follow with Cardiology and pulmonology. The 2D echo reports noted. Continue the current medications, management and symptomatic treatment. Overall prognosis extremely guarded because of multiple complex medical issues. We will monitor the patient closely in ICU and further recommendations to follow. MMODL / IJN: [id number] / IZABELA
[2018-07-14 20:54] LABS: Glucose,Whole Blood 129 mg/dL (75-99)
[2018-07-14] MEDS: SODIUM CHLORIDE 0.9% 1,000 ML IV SCH (21:56)
[2018-07-15] MEDS: PIPERACILLIN-TAZOBACTAM 3.375 GM in SODIUM CHLORIDE 0.9% 100 ML IVPB SCH ×3 (00:16→16:52)
[2018-07-15] MEDS: IPRATROPIUM-ALBUTEROL 3 ML NEB INHALATION SCH ×4 (07:07→19:15)
[2018-07-15 09:05] LABS: Basophils % (A) 0 %; Eosinophils % (A) 0 %; HCT 51.6 % (39.0-53.0); HGB 16.4 gm/dL (13.0-17.5); Lymphocytes # (A) 0.9 k/uL (1.0-4.8); Lymphocytes % (A) 7 %; MCH 30.1 pg (25.0-35.0); MCHC 31.8 g/dL (31.0-37.0); MCV 94.7 fL (80.0-100.0); Mean Platelet Volume 6.9; Monocytes # (A) 0.5 k/uL (0-1.0); Monocytes % (A) 5 %; Neutrophils % (A) 85 %; Platelet Count 153 k/uL (150-450); RBC 5.45 m/uL (4.30-5.90); RDW 14.7 % (11.5-15.5); WBC 11.7 k/uL (3.8-10.6)
[2018-07-15] MEDS: ATORVASTATIN 20 MG TAB PO SCH (10:20)
[2018-07-15] MEDS: ASPIRIN 81 MG PO SCH (10:20)
[2018-07-15] MEDS: hydrALAZINE HCL 50 MG TAB PO SCH (10:21)
[2018-07-15] MEDS: CARVEDILOL 6.25 MG TAB PO SCH (10:21)
[2018-07-15] MEDS: SPIRONOLACTONE 25 MG TAB PO SCH (10:21)
[2018-07-15] MEDS: NIACIN TR 500 MG CAPSULE.ER PO SCH (10:23)
[2018-07-15] MEDS: DOCUSATE 100 MG CAP PO SCH (10:23)
[2018-07-15] MEDS: VANCOMYCIN 2,000 MG in SODIUM CHLORIDE 0.9% 500 ML 500 ML IVPB SCH (10:51)
[2018-07-15] MEDS: INSULIN ASPART 100 UNIT/ML 1 ML 10 ML VIAL SQ SCH ×4 (11:08→20:10)
[2018-07-15 11:15] LABS: Albumin 3.2 g/dL (3.5-5.0); Calcium 8.7 mg/dL (8.4-10.2); Magnesium 2.3 mg/dL (1.6-2.3); Phosphorus 2.8 mg/dL (2.5-4.5); Potassium 3.2 mmol/L (3.5-5.1); Total Bilirubin 1.4 mg/dL (0.2-1.3); Total Protein 5.7 g/dL (6.3-8.2)
[2018-07-15 11:27] LABS: INR 1.5 (<1.2); Partial Thromboplastin Time 37.1 sec (22.0-30.0); Prothrombin Time 14.9 sec (9.0-12.0)
[2018-07-15] MEDS: POTASSIUM CHLORIDE ER 20 MEQ TAB.ER PO SCH ×2 (11:40→13:31)
[2018-07-15] MEDS: HEPARIN SOD,PORK IN 0.45% NACL 25,000 UNIT in 0.45% NACL 1 250ML.BAG IV SCH (11:56)
--- NOTE | 2018-07-15 12:33 | P.PN ---
Subjective Progress Note Date: 07/15/18 Principal diagnosis: Acute community-acquired pneumonia and sepsis. This is an 82-year-old white male with history of multiple medical problems including chronic atrial fibrillation, congestive heart failure, COPD, hypertension, hyperlipidemia, coronary artery disease and previous CABG. Patient usually gets his medical care through the [place], however this time he was brought in by his daughter who lives with the patient, and she has been noticing that the patient is getting generally weak, unable to get up from the bed to walk although he does have a walker and sometimes he uses an electric wheelchair. Upon evaluation in the ER, the patient was noted to be dehydrated, his lactic acid was also noted to be elevated, and a chest x-ray was done which I reviewed myself, suspicious for infiltrate in the right perihilar area and possibly in the left lower lobe. Patient had a temp of 102 on admission, hence he was started on IV antibiotics, bronchodilators, and this consult was initiated. Patient was also started back on his usual cardiac meds including Coumadin. The patient himself is a very poor historian, when asked about his symptoms, patient suggested that he call his . Patient was reevaluated today on 07/15/2018, remains in the ICU, hemodynamically stable, improved from the pulmonary perspective, however he is still requires about 5 L nasal cannula to maintain adequate saturation. Patient is refusing labs to be drawn today, he is also refusing to have a chest x-ray done. Insisting that he wouldn't have any of this done on to his shows up later today. His WBC count today is 11.7, hemoglobin 16.4. Electrolytes were noted to be abnormal with low potassium of 3.2. His BUN is 25 creatinine is 1.27. His creatinine yesterday was 1.09. Patient agreed to have the labs drawn, but refuses to have a chest x-ray done. Hence we'll delay the chest x-ray until tomorrow. Objective - Vital Signs Vital signs: Vital Signs Temp 99.5 F 07/15/18 08:00 Pulse 60 07/15/18 11:12 Resp 17 07/15/18 11:12 BP 136/67 07/15/18 10:00 Pulse Ox 94 L 07/15/18 10:00 Intake & Output 07/14/18 07/15/18 07/15/18 18:59 06:59 18:59 Intake Total 829.7 820 1055.994 Output Total 965 435 195 Balance -135.3 385 860.994 Weight 129.4 kg Intake: IV 260 320 200 Piperacillin-Tazobactam 3 100 100 .375 gm In Sodium Chloride 0.9% 100 ml @ 25 mls/hr IVPB Q8H [facility] Rx#: [id number] Sodium Chloride 0.9% 1, 260 220 100 000 ml @ 20 mls/hr IV . Q24H [facility] Rx#:[id number] Intake, IV Titration 329.7 500 735.994 Amount Heparin Sod,Pork in 0.45% 29.7 235.994 NaCl 25,000 unit In 0.45 % NaCl 1 250ml.bag @ 10.8 UNITS/KG/HR 13.84 mls/hr IV .Q18H4M [facility] Rx#: [id number] Piperacillin-Tazobactam 3 200 .375 gm In Sodium Chloride 0.9% 100 ml @ 25 mls/hr IVPB Q8H [facility] Rx#: [id number] Potassium Chloride 10 meq 100 In Water For Injection 1 100ml.bag @ 100 mls/hr IVPB Q1H [facility] Rx#: [id number] Vancomycin 2,000 mg In 500 Sodium Chloride 0.9% 500 ml 500 ml @ 167 mls/hr IVPB Q24H [facility] Rx#: [id number] Vancomycin 2,250 mg In 500 Sodium Chloride 0.9% 500 ml 500 ml @ 167 mls/hr IVPB [facility]CE [facility] Rx#: [id number] Oral 240 120 Output: Urine 965 435 195 Other: Voiding Method Indwelling Catheter Indwelling Catheter Indwelling Catheter - Exam Physical Exam: Revealed 82-year-old white male on 5 L nasal cannula. Head: Atraumatic, normocephalic. HEENT:[Neck is supple.] [No neck masses.] [No thyromegaly.] [No JVD.] Chest: [Crackles and rhonchi and wheezes noted bilaterally symmetrical chest expansion, no chest wall tenderness..] Cardiac Exam: [Irregular irregular rhythm Normal S1 and S2, no S3 gallop, 2/6 systolic murmur thought the precordium. Abdomen: [Obese, Soft, nontender, no megaly, no rebound, no guarding, normal bowel sounds.] Extremities: [No clubbing, 1+ bipedal edema, chronic hyperpigmentation and venous stasis changes noted in lower extremities bilaterally..] Neurological Exam: Generally weak, otherwise [No focal neurologic deficit.] Psychiatric: Normal mood, affect, questionable mental status. Questionable insight. Lymphatics: No lymphadenopathy. - Labs CBC & Chem 7: 07/15/18 08:53 07/15/18 10:45 Labs: Abnormal Lab Results - Last 24 Hours (Table) 07/14/18 07/14/18 07/14/18 Range/Units 12:57 17:18 20:48 WBC (3.8-10.6) k/uL Neutrophils # (1.3-7.7) k/uL Lymphocytes # (1.0-4.8) k/uL PT (9.0-12.0) sec INR (<1.2) APTT 50.4 H (22.0-30.0) sec Sodium (137-145) mmol/L Potassium (3.5-5.1) mmol/L Chloride (98-107) mmol/L Carbon Dioxide (22-30) mmol/L BUN (9-20) mg/dL Creatinine (0.66-1.25) mg/dL Glucose (74-99) mg/dL POC Glucose (mg/dL) 170 H 172 H (75-99) mg/dL Total Bilirubin (0.2-1.3) mg/dL AST (17-59) U/L ALT (21-72) U/L Total Protein (6.3-8.2) g/dL Albumin (3.5-5.0) g/dL 07/14/18 07/15/18 07/15/18 Range/Units 20:51 08:53 10:45 WBC 11.7 H (3.8-10.6) k/uL Neutrophils # 10.0 H (1.3-7.7) k/uL Lymphocytes # 0.9 L (1.0-4.8) k/uL PT 14.9 H (9.0-12.0) sec INR 1.5 H (<1.2) APTT 37.1 H (22.0-30.0) sec Sodium (137-145) mmol/L Potassium (3.5-5.1) mmol/L Chloride (98-107) mmol/L Carbon Dioxide (22-30) mmol/L BUN (9-20) mg/dL Creatinine (0.66-1.25) mg/dL Glucose (74-99) mg/dL POC Glucose (mg/dL) 129 H (75-99) mg/dL Total Bilirubin (0.2-1.3) mg/dL AST (17-59) U/L ALT (21-72) U/L Total Protein (6.3-8.2) g/dL Albumin (3.5-5.0) g/dL 07/15/18 Range/Units 10:45 WBC (3.8-10.6) k/uL Neutrophils # (1.3-7.7) k/uL Lymphocytes # (1.0-4.8) k/uL PT (9.0-12.0) sec INR (<1.2) APTT (22.0-30.0) sec Sodium 136 L (137-145) mmol/L Potassium 3.2 L (3.5-5.1) mmol/L Chloride 95 L (98-107) mmol/L Carbon Dioxide 31 H (22-30) mmol/L BUN 25 H (9-20) mg/dL Creatinine 1.27 H (0.66-1.25) mg/dL Glucose 149 H (74-99) mg/dL POC Glucose (mg/dL) (75-99) mg/dL Total Bilirubin 1.4 H (0.2-1.3) mg/dL AST 132 H (17-59) U/L ALT 122 H (21-72) U/L Total Protein 5.7 L (6.3-8.2) g/dL Albumin 3.2 L (3.5-5.0) g/dL Microbiology - Last 24 Hours (Table) 07/14/18 03:03 Blood Culture Gram Stain - Preliminary Blood Blood Culture - Preliminary Group D Enterococcus 07/14/18 02:50 Blood Culture Gram Stain - Preliminary Blood Blood Culture - Preliminary Group D Enterococcus 07/14/18 03:03 Blood Culture - Final Blood 07/14/18 02:50 Blood Culture - Final Blood 07/14/18 03:06 Gram Stain - Preliminary Sputum Sputum Culture - Preliminary 07/13/18 20:40 Urine Culture - Preliminary Urine,Voided Assessment and Plan Assessment: Impression: 1 strongly suspect bilateral pneumonia, community-acquired, and sepsis. 2 elevated lactic acid secondary to sepsis. 3 brief episode of asystole requiring CPR for few minutes, with spontaneous recovery of pulse and circulation. This happened early this morning around 6: 20 AM while in the ICU, patient was about to be intubated, but was not done. Since the patient responded to CPR only. 4 generalized weakness secondary to sepsis and pneumonia 5 electrolytes imbalance mostly hyponatremia exact etiology is not clear. And hypokalemia 6 chronic atrial fibrillation 7 type 2 diabetes 8 previous CABG 9 history of pacemaker implantation 10 chronic kidney disease stage III. 11 acute hypoxic respiratory failure secondary to COPD and pneumonia. 12 acute exacerbation of COPD. Patient had remote smoking history. 13 elevated troponin, will be addressed by cardiology. Recommendation: Continue antibiotics, bronchodilators, cardiac meds, patient was already started on Zosyn . Plan to give the patient in the ICU, and if transferred will need to be much transferred to a monitor bed on selective. It was felt by cardiology that his arrhythmia is mostly related to hypomagnesemia, LV function is unknown at this point. Recommended IV magnesium and IV metoprolol. Which is hydrochlorothiazide to spironolactone, and started the patient on Coreg. His echocardiogram showed impaired LV function ejection fraction of 40%. No evidence of pulmonary hypertension noted. Time with Patient: Less than 30
[2018-07-15] MEDS ORDERED: traMADol 50 MG TAB PO PRN (14:15)
--- NOTE | 2018-07-15 15:39 | P.PN ---
Subjective Patient's blood pressure is a lot better today. He has not had any further torsade Breath sounds are reduced bilaterally but his resting comfortably in bed is a paced rhythm with underlying atrial fibrillation he is on Coumadin INR subtherapeutic he is on heparin Coumadin and heparin managed by medical doctors On examination his pulse rate is in the 60s paced Respirations 18-20 Not pressure 134/68 mmHg Breath sounds are reduced bilaterally with bilateral rhonchus breath sounds Heart sounds source was soft systolic murmur Suggest Stop hydralazine and increase carvedilol to 12.5 mg twice daily Continue spironolactone Add mag oxide Objective - Vital Signs Vital signs: Vital Signs Temp 99.2 F 07/15/18 12:00 Pulse 62 07/15/18 15:27 Resp 18 07/15/18 15:00 BP 134/68 07/15/18 15:00 Pulse Ox 93 L 07/15/18 15:00 Intake & Output 07/14/18 07/15/18 07/15/18 18:59 06:59 18:59 Intake Total 829.7 820 1216.161 Output Total 965 435 320 Balance -135.3 385 896.161 Weight 129.4 kg Intake: IV 260 320 240 Piperacillin-Tazobactam 3 100 100 .375 gm In Sodium Chloride 0.9% 100 ml @ 25 mls/hr IVPB Q8H [facility] Rx#: [id number] Sodium Chloride 0.9% 1, 260 220 140 000 ml @ 20 mls/hr IV . Q24H [facility] Rx#:[id number] Intake, IV Titration 329.7 500 736.161 Amount Heparin Sod,Pork in 0.45% 29.7 236.161 NaCl 25,000 unit In 0.45 % NaCl 1 250ml.bag @ 10.8 UNITS/KG/HR 13.84 mls/hr IV .Q18H4M [facility] Rx#: [id number] Piperacillin-Tazobactam 3 200 .375 gm In Sodium Chloride 0.9% 100 ml @ 25 mls/hr IVPB Q8H [facility] Rx#: [id number] Potassium Chloride 10 meq 100 In Water For Injection 1 100ml.bag @ 100 mls/hr IVPB Q1H [facility] Rx#: [id number] Vancomycin 2,000 mg In 500 Sodium Chloride 0.9% 500 ml 500 ml @ 167 mls/hr IVPB Q24H [facility] Rx#: [id number] Vancomycin 2,250 mg In 500 Sodium Chloride 0.9% 500 ml 500 ml @ 167 mls/hr IVPB ONCE ONE Rx#: [id number] Oral 240 240 Output: Urine 965 435 320 Other: Voiding Method Indwelling Catheter Indwelling Catheter Indwelling Catheter - Labs CBC & Chem 7: 07/15/18 08:53 07/15/18 10:45 Labs: Abnormal Lab Results - Last 24 Hours (Table) 07/14/18 07/14/18 07/14/18 Range/Units 17:18 20:48 20:51 WBC (3.8-10.6) k/uL Neutrophils # (1.3-7.7) k/uL Lymphocytes # (1.0-4.8) k/uL PT (9.0-12.0) sec INR (<1.2) APTT 50.4 H (22.0-30.0) sec Sodium (137-145) mmol/L Potassium (3.5-5.1) mmol/L Chloride (98-107) mmol/L Carbon Dioxide (22-30) mmol/L BUN (9-20) mg/dL Creatinine (0.66-1.25) mg/dL Glucose (74-99) mg/dL POC Glucose (mg/dL) 172 H 129 H (75-99) mg/dL Total Bilirubin (0.2-1.3) mg/dL AST (17-59) U/L ALT (21-72) U/L Total Protein (6.3-8.2) g/dL Albumin (3.5-5.0) g/dL 07/15/18 07/15/18 07/15/18 Range/Units 08:53 10:45 10:45 WBC 11.7 H (3.8-10.6) k/uL Neutrophils # 10.0 H (1.3-7.7) k/uL Lymphocytes # 0.9 L (1.0-4.8) k/uL PT 14.9 H (9.0-12.0) sec INR 1.5 H (<1.2) APTT 37.1 H (22.0-30.0) sec Sodium 136 L (137-145) mmol/L Potassium 3.2 L (3.5-5.1) mmol/L Chloride 95 L (98-107) mmol/L Carbon Dioxide 31 H (22-30) mmol/L BUN 25 H (9-20) mg/dL Creatinine 1.27 H (0.66-1.25) mg/dL Glucose 149 H (74-99) mg/dL POC Glucose (mg/dL) (75-99) mg/dL Total Bilirubin 1.4 H (0.2-1.3) mg/dL AST 132 H (17-59) U/L ALT 122 H (21-72) U/L Total Protein 5.7 L (6.3-8.2) g/dL Albumin 3.2 L (3.5-5.0) g/dL Microbiology - Last 24 Hours (Table) 07/13/18 20:40 Urine Culture - Preliminary Urine,Voided Gram Neg Bacilli 07/14/18 03:03 Blood Culture Gram Stain - Preliminary Blood Blood Culture - Preliminary Group D Enterococcus 07/14/18 02:50 Blood Culture Gram Stain - Preliminary Blood Blood Culture - Preliminary Group D Enterococcus 07/14/18 03:03 Blood Culture - Final Blood 07/14/18 02:50 Blood Culture - Final Blood 07/14/18 03:06 Gram Stain - Preliminary Sputum Sputum Culture - Preliminary
[2018-07-15 16:59] LABS: Glucose,Whole Blood 168 mg/dL (75-99)
[2018-07-15] MEDS: WARFARIN 2.5 MG TAB PO SCH (17:50)
[2018-07-15] MEDS: CARVEDILOL 12.5 MG TAB PO SCH (17:50)
--- NOTE | 2018-07-15 18:38 | PN ---
PROGRESS NOTE DATE OF SERVICE: 07/15/2018 This 82-year-old gentleman who was admitted with possible bibasilar pneumonia possibly gram-negative community acquired who has presented with sepsis and acute hypoxic respiratory failure. The patient had elevated lactic acid secondary to sepsis. The patient had some change in mental status, metabolic encephalopathy. The patient is being closely monitored at this time. Patient's sensorium slightly improved compared to admission and Cardiology and Pulmonology following the patient closely. The Coreg dose has been increased. A 2D echo with Doppler done yesterday showed ejection fraction about 40-45 percent and some hypokinesia, wall motion abnormalities also. No chest pain. No palpitations. No fever. PAST MEDICAL HISTORY: Reviewed. REVIEW OF SYSTEM: CARDIOVASCULAR: S1, S2. RESPIRATORY: As mentioned earlier. GI: As mentioned earlier. : No dysuria. CENTRAL NERVOUS SYSTEM: No numbness, weakness. CURRENT MEDICATIONS: Reviewed and include: 1. [place] 7.5 q.6h p.r.n. 2. DuoNeb q.i.d. and p.r.n. 3. Aspirin 81 mg daily. 4. Lipitor 10 mg daily. 5. Coreg 12.5 mg b.i.d. 6. Colace 100 mg b.i.d. 7. Heparin 5000 subcu b.i.d. 8. NovoLog scale. 9. Magnesium oxide. 10.Niacin p.r.n. 11.Zosyn 3.375 IV q.8h. 12.Aldactone 50 mg daily. 13.Ultram 25 mg q.6h p.r.n. 14.Vancomycin 2 g 24 hours. 15.Coumadin 2.5 mg Saturday, Saturday, Saturday, Saturday and Coumadin 3.75 mg Saturday, . PHYSICAL EXAM: Patient is alert, oriented x2. Pulse 60, blood pressure is 130/68, respiration 18, temp is normal. Pulse ox 98% on 3 L. HEENT is conjunctivae normal. NECK: No jugular venous distention. CARDIOVASCULAR: S1, S2 muffled. RESPIRATORY: Breath sounds diminished in the bases. Bilateral scattered rhonchi and crackles. Abdomen is soft, nontender. Legs are no edema. No swelling. Nervous system: Diffusely weak. LAB STUDIES: WBC 11.2, hemoglobin 16.2. INR 1.2, sodium 130, potassium 3.8, creatinine 1.27. ASSESSMENT: 1. Possible bibasilar pneumonia possibly gram-negative, possibly community-acquired with sepsis present on admission with acute hypoxic respiratory failure. 2. Elevated lactic acid secondary to sepsis. 3. Change in mental status acute metabolic acidosis secondary to sepsis. 4. Increased creatinine with chronic kidney disease Stage III. 5. Hyponatremia. 6. Increased WBC. 7. Torsades meghana pointes and brief cardiac arrest yesterday. 8. Hypertension. 9. Atrial fibrillation with bradycardia history. 10.History of congestive heart failure. 11.Diabetes mellitus type 2. 12.History of appendectomy. 13.History of CAD, coronary artery bypass grafting. 14.History of degenerative joint disease. 15.History of pacemaker. 16.History of atrial fibrillation. 17.History of congestive heart failure with chronic systolic dysfunction, ejection fraction 40-45 percent. RECOMMENDATIONS AND DISCUSSION: Recommend to continue current medications. Continue symptomatic treatment. Otherwise, at this time, I recommend continue with broad-spectrum IV antibiotics and also replace potassium. Monitor creatinine closely. Ensure oxygenation. Guarded prognosis because of multiple complex medical issues. Further recommendations to follow. MMODL / IJN: [id number] /
[2018-07-15 20:22] LABS: Glucose,Whole Blood 172 mg/dL (75-99)
[2018-07-15] MEDS: SODIUM CHLORIDE 0.9% 1,000 ML IV SCH (21:45)
[2018-07-16] MEDS: PIPERACILLIN-TAZOBACTAM 3.375 GM in SODIUM CHLORIDE 0.9% 100 ML IVPB SCH ×2 (01:20→08:36)
[2018-07-16 05:33] LABS: Basophils % (A) 0 %; Eosinophils # (A) 0.1 k/uL (0-0.7); Eosinophils % (A) 1 %; HCT 45.2 % (39.0-53.0); HGB 14.3 gm/dL (13.0-17.5); Lymphocytes % (A) 11 %; MCH 29.8 pg (25.0-35.0); MCHC 31.5 g/dL (31.0-37.0); MCV 94.4 fL (80.0-100.0); Mean Platelet Volume 7.1; Monocytes # (A) 0.6 k/uL (0-1.0); Monocytes % (A) 6 %; Neutrophils # (A) 7.7 k/uL (1.3-7.7); Neutrophils % (A) 78 %; Platelet Count 205 k/uL (150-450); RBC 4.79 m/uL (4.30-5.90); RDW 14.5 % (11.5-15.5); WBC 9.8 k/uL (3.8-10.6)
[2018-07-16 05:42] LABS: INR 2.1 (<1.2); Partial Thromboplastin Time 63.4 sec (22.0-30.0); Prothrombin Time 20.8 sec (9.0-12.0)
[2018-07-16 05:59] LABS: Calcium 8.7 mg/dL (8.4-10.2); Potassium 3.4 mmol/L (3.5-5.1); Total Bilirubin 1.3 mg/dL (0.2-1.3); Total Protein 5.4 g/dL (6.3-8.2)
[2018-07-16] MEDS: HEPARIN SOD,PORK IN 0.45% NACL 25,000 UNIT in 0.45% NACL 1 250ML.BAG IV SCH (06:51)
[2018-07-16] MEDS: VANCOMYCIN 2,000 MG in SODIUM CHLORIDE 0.9% 500 ML 500 ML IVPB SCH (06:51)
[2018-07-16] MEDS: traMADol 50 MG TAB PO PRN (06:51)
[2018-07-16 07:16] LABS: Glucose,Whole Blood 107 mg/dL (75-99)
[2018-07-16] MEDS: IPRATROPIUM-ALBUTEROL 3 ML NEB INHALATION SCH ×4 (07:28→19:34)
[2018-07-16] MEDS ORDERED: Potassium Replacement Protocol 1 EACH MISC MISCELLANE PRN (08:13)
[2018-07-16] MEDS: INSULIN ASPART 100 UNIT/ML 1 ML 10 ML VIAL SQ SCH ×4 (08:22→21:01)
[2018-07-16] MEDS: CARVEDILOL 12.5 MG TAB PO SCH ×2 (08:32→17:30)
[2018-07-16] MEDS: MAGNESIUM OXIDE 400 MG TAB PO SCH (08:33)
[2018-07-16] MEDS: ATORVASTATIN 10 MG TAB PO SCH (08:33)
[2018-07-16] MEDS: ASPIRIN 81 MG PO SCH (08:33)
[2018-07-16] MEDS: POTASSIUM CHLORIDE ER 20 MEQ TAB.ER PO SCH ×2 (08:36→10:08)
[2018-07-16] MEDS: SPIRONOLACTONE 25 MG TAB PO SCH (08:36)
--- NOTE | 2018-07-16 09:06 | US ---
EXAMINATION TYPE: US abdomen complete DATE OF EXAM: 07/16/2018 COMPARISON: NONE CLINICAL HISTORY: 82-year-old male with abdominal pain , elevated LFT. TECHNIQUE: Multiple sonographic images of the abdomen are obtained. FINDINGS: EXAM MEASUREMENTS: Liver Length: 19.5 cm Gallbladder Wall: 0.2 cm CBD: 0.5 cm Spleen: unable to see well enough to measure Right Kidney: 11.9 x 6.5 x 6.5 cm Left Kidney: 12.2 x 6.8 x 6.3 cm Banking Officer notes: Technically difficult exam performed portable in ICU, patient unable to roll or ho ld breath. Pancreas: Only portions of the pancreatic body are seen and show no gross abnormality. Remainder is s uboptimally visualized due to shadowing from bowel gas. Liver: hypoechoic area caudate lobe measures 4.0 x 1.8 x 3.2 cm . This may represent focal fatty spa ring given the background of increased echogenicity. Gallbladder: Borderline to mildly distended at 4.2 cm. No abnormal wall thickening or pericholecysti c fluid. Multiple mobile stones with shadowing are noted. Evidence for sonographic Guerra's sign: No CBD: wnl Spleen: not well visualized due to overlying bowel gas Right Kidney: A centrally located cystic area measures 1.9 x 1.2 x 1.4 cm. No hydronephrosis. Left Kidney: not well visualized there is no obvious hydronephrosis. Upper IVC: wnl Abd Aorta: not visualized due to bowel gas and body habitus. IMPRESSION: 1. Hepatomegaly (19.5 cm) with increased echogenicity suggesting fatty infiltration. 2. A 4.0 cm hypoechoic area at the uzma hepatis likely represents focal fatty sparing. 3 month follo w-up ultrasound recommended to reassess and exclude a mass. 3. Cholelithiasis. Borderline to mildly hydropic gallbladder may be due to fasting state. Clinically correlate. If right upper quadrant pain or concern for early acute cholecystitis, follow-up ultrasoun d or HIDA scan. No abnormal wall thickening, positive sonographic Guerra sign, or surrounding fluid t o further support acute cholecystitis at this time. 4. Suboptimal visualization of the spleen and left kidney.
--- NOTE | 2018-07-16 09:22 | P.PN ---
Subjective Patient is doing well. He has not had any further arrhythmias. He denies any chest discomfort he does not appear to be short of breath he is resting comfortably in bed he does complain of abdominal pain Blood pressure 135/64 mmHg pulse rate in the 60s paced underlying atrial fibrillation. INR today is 2.1 and heparin is being discontinued. 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 He was treated with IV magnesium and beta blockers His blood pressure was also elevated and now he is on carvedilol. He has not had any further episodes of nonsustained ventricular tachycardia or PMVT since last 48 hours Suggest Continue baby aspirin continue atorvastatin 10 g by mouth daily Continue carvedilol 12.5 mg twice daily even as an outpatient I will discontinue niacin Reduce IV fluid administration Continue Spiriva lateral 50 g by mouth daily When necessary follow-up from a cardiac standpoint Objective - Vital Signs Vital signs: Vital Signs Temp 98.4 F 07/16/18 04:00 Pulse 60 07/16/18 07:38 Resp 19 07/16/18 07:00 BP 135/64 07/16/18 07:00 Pulse Ox 93 L 07/16/18 07:00 Intake & Output 07/15/18 07/16/18 07/16/18 18:59 06:59 18:59 Intake Total 1656.161 469.833 45.835 Output Total 455 465 35 Balance 1201.161 4.833 10.835 Weight 129.1 kg Intake: IV 440 220 20 Piperacillin-Tazobactam 3 200 .375 gm In Sodium Chloride 0.9% 100 ml @ 25 mls/hr IVPB Q8H [facility] Rx#: [id number] Sodium Chloride 0.9% 1, 240 220 20 000 ml @ 20 mls/hr IV . Q24H [facility] Rx#:[id number] Intake, IV Titration 736.161 249.833 25.835 Amount Heparin Sod,Pork in 0.45% 236.161 249.833 25.835 NaCl 25,000 unit In 0.45 % NaCl 1 250ml.bag @ 10.8 UNITS/KG/HR 13.84 mls/hr IV .Q18H4M [facility] Rx#: [id number] Vancomycin 2,000 mg In 500 Sodium Chloride 0.9% 500 ml 500 ml @ 167 mls/hr IVPB Q24H [facility] Rx#: [id number] Oral 480 Output: Urine 455 465 35 Other: Voiding Method Indwelling Catheter Indwelling Catheter - Labs CBC & Chem 7: 07/16/18 05:20 07/16/18 05:20 Labs: Abnormal Lab Results - Last 24 Hours (Table) 07/15/18 07/15/18 07/15/18 Range/Units 10:45 10:45 16:55 PT 14.9 H (9.0-12.0) sec INR 1.5 H (<1.2) APTT 37.1 H (22.0-30.0) sec Sodium 136 L (137-145) mmol/L Potassium 3.2 L (3.5-5.1) mmol/L Chloride 95 L (98-107) mmol/L Carbon Dioxide 31 H (22-30) mmol/L BUN 25 H (9-20) mg/dL Creatinine 1.27 H (0.66-1.25) mg/dL Glucose 149 H (74-99) mg/dL POC Glucose (mg/dL) 168 H (75-99) mg/dL Total Bilirubin 1.4 H (0.2-1.3) mg/dL AST 132 H (17-59) U/L ALT 122 H (21-72) U/L Total Protein 5.7 L (6.3-8.2) g/dL Albumin 3.2 L (3.5-5.0) g/dL 07/15/18 07/15/18 07/16/18 Range/Units 17:40 20:07 05:20 PT (9.0-12.0) sec INR (<1.2) APTT 55.6 H (22.0-30.0) sec Sodium (137-145) mmol/L Potassium 3.4 L (3.5-5.1) mmol/L Chloride 97 L (98-107) mmol/L Carbon Dioxide 32 H (22-30) mmol/L BUN 27 H (9-20) mg/dL Creatinine 1.28 H (0.66-1.25) mg/dL Glucose 121 H (74-99) mg/dL POC Glucose (mg/dL) 172 H (75-99) mg/dL Total Bilirubin (0.2-1.3) mg/dL AST 72 H (17-59) U/L ALT 92 H (21-72) U/L Total Protein 5.4 L (6.3-8.2) g/dL Albumin 3.0 L (3.5-5.0) g/dL 07/16/18 07/16/18 Range/Units 05:20 07:13 PT 20.8 H (9.0-12.0) sec INR 2.1 H (<1.2) APTT 63.4 H (22.0-30.0) sec Sodium (137-145) mmol/L Potassium (3.5-5.1) mmol/L Chloride (98-107) mmol/L Carbon Dioxide (22-30) mmol/L BUN (9-20) mg/dL Creatinine (0.66-1.25) mg/dL Glucose (74-99) mg/dL POC Glucose (mg/dL) 107 H (75-99) mg/dL Total Bilirubin (0.2-1.3) mg/dL AST (17-59) U/L ALT (21-72) U/L Total Protein (6.3-8.2) g/dL Albumin (3.5-5.0) g/dL Microbiology - Last 24 Hours (Table) 07/14/18 02:50 Blood Culture Gram Stain - Final Blood Blood Culture - Final Enterococcus faecalis 07/14/18 03:03 Blood Culture Gram Stain - Final Blood Blood Culture - Final Enterococcus faecalis 07/14/18 18:03 Blood Culture - Preliminary Blood No Growth after 24 hours 07/13/18 20:40 Urine Culture - Preliminary Urine,Voided Gram Neg Bacilli
--- NOTE | 2018-07-16 10:32 | P.CONS ---
History of Present Illness - Reason for Consult Consult date: 07/14/18 Bacteremia Requesting physician: Yosef Rutledge - Chief Complaint Generalized weakness and no energy for the last few days - History of Present Illness Patient is 82 year male who was brought into the ER at [facility] on the day of admission by the EMS with she complains of generalized weakness and no energy his symptom has been progressively getting worst on the last day or 2 patient appetite has been poor no history of any nausea vomiting or any abdominal pain, patient was noticed to be mildly hypoxic by EMS evaluation, patient did have a chest x-ray with question of left upper lobe infiltrate or nodules the patient subsequently did spike a fever of 102F and his white count was elevated patient was started on Zosyn while in the morning on 07/14/18 the patient have runs of Torsades and had a witnessed cardiac arrest and was resuscitated with compressions, 1Gm of magnesium given. Metoprolol was added, and the patient rhythm has stabilized patient did have blood cultures obtained which are now coming back positive with gram-positive cocci that prompted this infectious disease consultation, the patient is complaining of for chest pain after compression mostly pain is dull aching to sharp 5-6 out of 10 and no radiation, he did have a mild cough but not become any sputum denies having any choking on the food no nausea no vomiting and no diarrhea no difficulty urination patient did have elevated white count of 13, 000 on admission though urine was not significantly positive Review of Systems CONSTITUTIONAL: Positive for weakness and Fever EYES: No complaint. ENT:No complaint. RESPIRATORY: As per history of present illness. CARDIOVASCULAR: As per history of present illness. GENITOURINARY: No complaint. GASTROINTESTINAL: No complaint. MUSCULOSKELETAL: No complaint. INTEGUMENTARY: No complaint. PSYCHOLOGICAL: No complaint. ENDOCRINE: No complaint. NEUROLOGIC: No complaint. Past Medical History Past Medical History: Atrial Fibrillation, Coronary Artery Disease (CAD), Heart Failure, COPD, Diabetes Mellitus, Hypertension History of Any Multi-Drug Resistant Organisms: None Reported Past Surgical History: Appendectomy, Coronary Bypass/CABG, Heart Catheterization , Joint Replacement, Orthopedic Surgery, Pacemaker Past Anesthesia/Blood Transfusion Reactions: No Reported Reaction Type of Cardiac Device: Permanent Pacemaker Device Placement Date:: 2004 Past Psychological History: No Psychological Hx Reported Smoking Status: Former smoker Past Alcohol Use History: None Reported Past Drug Use History: None Reported - Past Family History Father Additional Family Medical History / Comment(s): chronic cardiac disease Medications and Allergies Home Medications Medication Instructions Recorded Confirmed Type Aspirin [[place] Aspirin EC] 81 mg PO DAILY 07/13/18 07/13/18 History Chlorthalidone 25 mg PO DAILY 07/13/18 07/13/18 History Docusate [Colace] 100 mg PO Q48H 07/13/18 07/15/18 History Flaxseed Oil 1,000 mg PO DAILY 07/13/18 07/13/18 History HYDROcodone/APAP 7.5-325MG [[place] 1 tab PO Q6HR PRN 07/13/18 07/13/18 History 7.5-325] Ipratropium-Albuterol Nebulize 3 ml INHALATION RT-QID 07/13/18 07/13/18 History [Duoneb 0.5 mg-3 mg/3 ml Soln] Metoprolol Tartrate [Lopressor] 25 mg PO BID 07/13/18 07/13/18 History Niacin 2,000 mg PO DAILY 07/13/18 07/13/18 History Rosuvastatin Calcium [Crestor] 5 mg PO DIRECTED 07/13/18 07/13/18 History Warfarin Sodium [Coumadin] 3.75 mg PO SUTUTH 07/13/18 07/13/18 History Warfarin [Coumadin] 2.5 mg PO MOWEFRSA 07/13/18 07/13/18 History Allergies Allergy/AdvReac Type Severity Reaction Status Date / Time No Known Allergies Allergy Verified 07/13/18 17:56 Physical Exam Vitals: Vital Signs Temp Pulse Resp BP Pulse Ox 07/14/18 22:00 60 12 116/60 95 07/14/18 21:00 60 15 124/65 94 L 07/14/18 20:11 60 07/14/18 20:00 98.0 F 60 16 112/59 96 07/14/18 19:59 60 97 07/14/18 19:00 60 20 118/59 97 07/14/18 18:00 59 L 16 131/67 96 07/14/18 17:00 60 16 138/68 95 07/14/18 16:09 60 07/14/18 16:00 97.7 F 60 17 129/73 95 07/14/18 15:59 60 07/14/18 15:00 60 14 126/71 94 L 07/14/18 14:00 60 15 130/70 93 L 07/14/18 13:00 60 17 133/70 94 L 07/14/18 12:00 98.2 F 60 19 150/68 95 07/14/18 11:30 60 07/14/18 11:22 60 07/14/18 11:00 60 27 H 137/77 95 07/14/18 10:00 60 22 156/84 96 07/14/18 09:00 99.2 F 60 163/84 97 07/14/18 08:00 60 22 170/86 96 07/14/18 07:21 94 L 07/14/18 07:00 129 H 178/88 95 07/14/18 05:53 92 L 07/14/18 05:00 60 22 174/94 88 L 07/14/18 04:00 98.3 F 60 20 162/77 93 L 07/14/18 03:00 60 23 161/83 91 L 07/14/18 02:00 60 50 H 173/82 92 L 07/14/18 01:00 60 25 H 173/82 93 L 07/14/18 00:00 102.9 F H 60 17 174/74 93 L 07/13/18 23:32 98.1 F 60 18 174/74 98 Intake and Output 07/14/18 07/14/18 07/14/18 06:59 14:59 22:59 Intake Total 260 500 909.7 Output Total 525 645 490 Balance -265 -145 419.7 Intake: IV 60 180 160 Sodium Chloride 0.9% 1, 60 180 160 000 ml @ 20 mls/hr IV . Q24H [facility] Rx#:[id number] Intake, IV Titration 200 200 629.7 Amount Heparin Sod,Pork in 0.45% 29.7 NaCl 25,000 unit In 0.45 % NaCl 1 250ml.bag @ 7.8 UNITS/KG/HR 9.99 mls/hr IV .Q24H [facility] Rx#: [id number] Magnesium Sulfate-D5w Pmx 100 1 gm In Dextrose/Water 1 100ml.bag @ 100 mls/hr IVPB Q1H [facility] Rx#: [id number] Piperacillin-Tazobactam 3 100 100 100 .375 gm In Sodium Chloride 0.9% 100 ml @ 25 mls/hr IVPB Q8H [facility] Rx#: [id number] Potassium Chloride 10 meq 100 In Water For Injection 1 100ml.bag @ 100 mls/hr IVPB Q1H [facility] Rx#: [id number] Vancomycin 2,250 mg In 500 Sodium Chloride 0.9% 500 ml 500 ml @ 167 mls/hr IVPB ONCE ONE Rx#: [id number] Oral 120 120 Output: Urine 525 645 490 Other: Voiding Method Indwelling Catheter Indwelling Catheter Indwelling Catheter Weight 128.2 kg GENERAL DESCRIPTION: Elderly male lying in bed, no distress. No tachypnea or accessory muscle of respiration use. HEENT: Shows Pallor , no scleral icterus. Oral mucous membrane is dry. No pharyngeal erythema or thrush NECK: Trachea central, no thyromegaly. LUNGS: Unlabored breathing. Decreased breath sounds at the base. No wheeze or crackle. HEART: S1, S2, regular rate and rhythm. No loud murmur ABDOMEN: Soft, no tenderness , guarding or rigidity, no organomegaly EXTREMITIES: No edema of feet. SKIN: No rash, no masses palpable. Multiple bruises but no active cellulitis NEUROLOGICAL: The patient is awake, alert, oriented x3, mood and affect normal. Results CBC & Chem 7: 07/16/18 05:20 07/16/18 05:20 Labs: Abnormal Lab Results - Last 24 Hours (Table) 07/14/18 07/14/18 07/14/18 Range/Units 01:56 02:50 02:50 WBC (3.8-10.6) k/uL Hgb (13.0-17.5) gm/dL Hct (39.0-53.0) % Neutrophils # (1.3-7.7) k/uL PT 12.6 H (9.0-12.0) sec INR 1.2 H (<1.2) APTT (22.0-30.0) sec ABG pCO2 (35-45) mmHg ABG pO2 (83-108) mmHg ABG HCO3 (21-25) mmol/L ABG Total CO2 (19-24) mmol/L ABG O2 Saturation (94-97) % Sodium (137-145) mmol/L Potassium (3.5-5.1) mmol/L Chloride (98-107) mmol/L BUN (9-20) mg/dL Glucose (74-99) mg/dL POC Glucose (mg/dL) 161 H (75-99) mg/dL Troponin I 0.086 H* (0.000-0.034) ng/mL 07/14/18 07/14/18 07/14/18 Range/Units 06:31 06:31 07:25 WBC 22.5 H (3.8-10.6) k/uL Hgb 17.8 H (13.0-17.5) gm/dL Hct 54.2 H (39.0-53.0) % Neutrophils # 20.1 H (1.3-7.7) k/uL PT (9.0-12.0) sec INR (<1.2) APTT (22.0-30.0) sec ABG pCO2 (35-45) mmHg ABG pO2 (83-108) mmHg ABG HCO3 (21-25) mmol/L ABG Total CO2 (19-24) mmol/L ABG O2 Saturation (94-97) % Sodium 134 L (137-145) mmol/L Potassium 3.4 L (3.5-5.1) mmol/L Chloride 96 L (98-107) mmol/L BUN 22 H (9-20) mg/dL Glucose 194 H (74-99) mg/dL POC Glucose (mg/dL) 194 H (75-99) mg/dL Troponin I (0.000-0.034) ng/mL 07/14/18 07/14/18 07/14/18 Range/Units 10:50 12:57 17:18 WBC (3.8-10.6) k/uL Hgb (13.0-17.5) gm/dL Hct (39.0-53.0) % Neutrophils # (1.3-7.7) k/uL PT (9.0-12.0) sec INR (<1.2) APTT (22.0-30.0) sec ABG pCO2 47 H (35-45) mmHg ABG pO2 176 H (83-108) mmHg ABG HCO3 31 H (21-25) mmol/L ABG Total CO2 32 H (19-24) mmol/L ABG O2 Saturation 98.7 H (94-97) % Sodium (137-145) mmol/L Potassium (3.5-5.1) mmol/L Chloride (98-107) mmol/L BUN (9-20) mg/dL Glucose (74-99) mg/dL POC Glucose (mg/dL) 170 H 172 H (75-99) mg/dL Troponin I (0.000-0.034) ng/mL 07/14/18 07/14/18 Range/Units 20:48 20:51 WBC (3.8-10.6) k/uL Hgb (13.0-17.5) gm/dL Hct (39.0-53.0) % Neutrophils # (1.3-7.7) k/uL PT (9.0-12.0) sec INR (<1.2) APTT 50.4 H (22.0-30.0) sec ABG pCO2 (35-45) mmHg ABG pO2 (83-108) mmHg ABG HCO3 (21-25) mmol/L ABG Total CO2 (19-24) mmol/L ABG O2 Saturation (94-97) % Sodium (137-145) mmol/L Potassium (3.5-5.1) mmol/L Chloride (98-107) mmol/L BUN (9-20) mg/dL Glucose (74-99) mg/dL POC Glucose (mg/dL) 129 H (75-99) mg/dL Troponin I (0.000-0.034) ng/mL Microbiology - Last 24 Hours (Table) 07/14/18 03:03 Blood Culture - Final Blood 07/14/18 02:50 Blood Culture - Final Blood 07/14/18 03:06 Gram Stain - Preliminary Sputum Sputum Culture - Preliminary 07/13/18 20:40 Urine Culture - Preliminary Urine,Voided Assessment and Plan (1) Sepsis Current Visit: Yes Status: Acute Code(s): A41.9 - SEPSIS, UNSPECIFIED ORGANISM SNOMED Code(s): 24653646 (2) Gram-positive cocci bacteremia Current Visit: Yes Status: Acute Code(s): R78.81 - BACTEREMIA SNOMED Code( s): 277978355600 Plan: IMPRESSION : Patient presented to hospital with sepsis in this patient who did have a fever 10 2F patient did have tachycardia did have elevated white count meeting criteria for SIRS now with evidence of gram-positive bacteremia with concern for possible source being pneumonia in view of the infiltrate seen on the chest x-ray the patient also have a very poor skin with multiple bruises and that could be a source but there was no evidence of any active cellulitis his urine has been negative and the patient abdoman is soft and clinical examination PLAN: 1-blood culture will be repeated to document clearance of bacteremia 2- Obtain sputum for Gram stain and culture sensitivity 3- vancomycin added pharmacy to dose target trough of 15 and watching his kidney function and Vanco trough closely 4- Zosyn 3.375 grams every 8 hours to continue We will follow on clinical condition and cultures to further adjust medication if needed Time with Patient: Greater than 30
--- NOTE | 2018-07-16 10:32 | XR ---
EXAMINATION TYPE: XR chest 1V portable DATE OF EXAM: 07/16/2018 Comparison: 07/13/2018 Clinical History: 82-year-old male lung nodule Findings: Median sternotomy wires are present. Large patient body habitus with underpenetration of the lower th orax. Left anterior chest wall pacemaker generator with right atrial and right ventricular leads. Hea rt remains mildly enlarged. Diffuse interstitial prominence. No left midlung pulmonary nodule. New ri ght basilar opacity. Impression: 1. Cardiomegaly with interstitial changes. Correlate for possible mild CHF. 2. New patchy right basilar opacity could be confluent area of developing pulmonary edema or pneumoni a. 3. Previously seen left upper lobe pulmonary nodule persists. Neoplastic etiology not excluded at thi s time.
--- NOTE | 2018-07-16 10:36 | P.PN ---
Subjective Progress Note Date: 07/15/18 Principal diagnosis: Sepsis and gram-positive bacteremia The patient is afebrile this morning the patient continued complaining of not feeling well and tired and no energy the patient continued to have a chest pain from compression though slightly decreased intensity mild cough but not bringing up any sputum no nausea no vomiting no abdominal pain and no diarrhea Objective - Vital Signs Vital signs: Vital Signs Temp 99.3 F 07/15/18 20:00 Pulse 60 07/15/18 22:00 Resp 24 07/15/18 22:00 BP 125/72 07/15/18 22:00 Pulse Ox 94 L 07/15/18 22:00 Intake & Output 07/15/18 07/15/18 07/16/18 06:59 18:59 06:59 Intake Total 820 1656.161 40 Output Total 435 455 75 Balance 385 1201.161 -35 Weight 129.4 kg Intake: IV 320 440 40 Piperacillin-Tazobactam 3 100 200 .375 gm In Sodium Chloride 0.9% 100 ml @ 25 mls/hr IVPB Q8H [facility] Rx#: [id number] Sodium Chloride 0.9% 1, 220 240 40 000 ml @ 20 mls/hr IV . Q24H [facility] Rx#:[id number] Intake, IV Titration 500 736.161 Amount Heparin Sod,Pork in 0.45% 236.161 NaCl 25,000 unit In 0.45 % NaCl 1 250ml.bag @ 10.8 UNITS/KG/HR 13.84 mls/hr IV .Q18H4M [facility] Rx#: [id number] Vancomycin 2,000 mg In 500 Sodium Chloride 0.9% 500 ml 500 ml @ 167 mls/hr IVPB Q24H [facility] Rx#: [id number] Vancomycin 2,250 mg In 500 Sodium Chloride 0.9% 500 ml 500 ml @ 167 mls/hr IVPB ONCE [facility] Rx#: [id number] Oral 480 Output: Urine 435 455 75 Other: Voiding Method Indwelling Catheter Indwelling Catheter Indwelling Catheter - Exam GENERAL DESCRIPTION: Elderly male lying in bed in no distress RESPIRATORY SYSTEM: Unlabored breathing , decreased breath sounds at bases HEART: S1 S2 regular rate and rhythm ,no loud murmurs ABDOMEN: Soft , no tenderness EXTREMITIES: 2+ edema feet SKIN: Multiple bruises and skin breakdown and no active cellulitis - Labs CBC & Chem 7: 07/16/18 05:20 07/16/18 05:20 Labs: Abnormal Lab Results - Last 24 Hours (Table) 07/15/18 07/15/18 07/15/18 Range/Units 08:53 10:45 10:45 WBC 11.7 H (3.8-10.6) k/uL Neutrophils # 10.0 H (1.3-7.7) k/uL Lymphocytes # 0.9 L (1.0-4.8) k/uL PT 14.9 H (9.0-12.0) sec INR 1.5 H (<1.2) APTT 37.1 H (22.0-30.0) sec Sodium 136 L (137-145) mmol/L Potassium 3.2 L (3.5-5.1) mmol/L Chloride 95 L (98-107) mmol/L Carbon Dioxide 31 H (22-30) mmol/L BUN 25 H (9-20) mg/dL Creatinine 1.27 H (0.66-1.25) mg/dL Glucose 149 H (74-99) mg/dL POC Glucose (mg/dL) (75-99) mg/dL Total Bilirubin 1.4 H (0.2-1.3) mg/dL AST 132 H (17-59) U/L ALT 122 H (21-72) U/L Total Protein 5.7 L (6.3-8.2) g/dL Albumin 3.2 L (3.5-5.0) g/dL 07/15/18 07/15/18 07/15/18 Range/Units 16:55 17:40 20:07 WBC (3.8-10.6) k/uL Neutrophils # (1.3-7.7) k/uL Lymphocytes # (1.0-4.8) k/uL PT (9.0-12.0) sec INR (<1.2) APTT 55.6 H (22.0-30.0) sec Sodium (137-145) mmol/L Potassium (3.5-5.1) mmol/L Chloride (98-107) mmol/L Carbon Dioxide (22-30) mmol/L BUN (9-20) mg/dL Creatinine (0.66-1.25) mg/dL Glucose (74-99) mg/dL POC Glucose (mg/dL) 168 H 172 H (75-99) mg/dL Total Bilirubin (0.2-1.3) mg/dL AST (17-59) U/L ALT (21-72) U/L Total Protein (6.3-8.2) g/dL Albumin (3.5-5.0) g/dL Microbiology - Last 24 Hours (Table) 07/14/18 18:03 Blood Culture - Preliminary Blood No Growth after 24 hours 07/13/18 20:40 Urine Culture - Preliminary Urine,Voided Gram Neg Bacilli 07/14/18 03:03 Blood Culture Gram Stain - Preliminary Blood Blood Culture - Preliminary Group D Enterococcus 07/14/18 02:50 Blood Culture Gram Stain - Preliminary Blood Blood Culture - Preliminary Group D Enterococcus 07/14/18 03:03 Blood Culture - Final Blood Assessment and Plan (1) Bacteremia due to Enterococcus Current Visit: Yes Status: Acute Code(s): R78.81 - BACTEREMIA; B95.2 - ENTEROCOCCUS THE CAUSE OF DISEASES CLASSIFIED ELSEWHERE SNOMED Code(s): 537047769333 Plan: Patient admitted hospital with sepsis in this patient did have a fever of 10 2 F the patient did have elevated white count patient now with evidence of enterococcus bacteremia which is either of urine or blood source the patient urine was not significantly positive and is currently showing a gram-negative bacilli blood culture will be repeated to document clearance of bacteremia and ultrasound of the abdoman will be ordered, vancomycin and Zosyn to continue while waiting for the sensitivity on this pathogen to finalize and condition to stabilize watching his kidney function closely Time with Patient: Less than 30
[2018-07-16] MEDS: HYDROcodone/APAP 7.5-325MG 1 EACH TAB PO PRN ×2 (11:00→17:28)
[2018-07-16 11:55] LABS: Glucose,Whole Blood 121 mg/dL (75-99)
--- NOTE | 2018-07-16 12:13 | P.PN ---
Subjective Progress Note Date: 07/16/18 Principal diagnosis: Acute community-acquired pneumonia and sepsis. This is an 82-year-old white male with history of multiple medical problems including chronic atrial fibrillation, congestive heart failure, COPD, hypertension, hyperlipidemia, coronary artery disease and previous CABG. Patient usually gets his medical care through the [facility], however this time he was brought in by his daughter who lives with the patient, and she has been noticing that the patient is getting generally weak, unable to get up from the bed to walk although he does have a walker and sometimes he uses an electric wheelchair. Upon evaluation in the ER, the patient was noted to be dehydrated, his lactic acid was also noted to be elevated, and a chest x-ray was done which I reviewed myself, suspicious for infiltrate in the right perihilar area and possibly in the left lower lobe. Patient had a temp of 102 on admission, hence he was started on IV antibiotics, bronchodilators, and this consult was initiated. Patient was also started back on his usual cardiac meds including Coumadin. The patient himself is a very poor historian, when asked about his symptoms, patient suggested that he call his . Patient was reevaluated today on 07/15/2018, remains in the ICU, hemodynamically stable, improved from the pulmonary perspective, however he is still requires about 5 L nasal cannula to maintain adequate saturation. Patient is refusing labs to be drawn today, he is also refusing to have a chest x-ray done. Insisting that he wouldn't have any of this done on to his shows up later today. His WBC count today is 11.7, hemoglobin 16.4. Electrolytes were noted to be abnormal with low potassium of 3.2. His BUN is 25 creatinine is 1.27. His creatinine yesterday was 1.09. Patient agreed to have the labs drawn, but refuses to have a chest x-ray done. Hence we'll delay the chest x-ray until tomorrow. Patient was reevaluated today on 07/16/2018, remains in the ICU, feeling much per her today, breathing a lot easier, remains on 2 L nasal cannula, O2 saturation is adequate. Patient seems to be agreeable today to have blood drawn and x-ray done, his is sitting at bedside. He did well have one episode of cough earlier today, and his sputum was blood tinged. Patient is on anticoagulation therapy. INR today is 2.1, PTT is 63.4. Electrolytes are normal except for slightly low potassium of 3.4, creatinine is 1.28, basically about the same over the last couple of days. Chest x-ray this morning continues to show cardiomegaly, patchy bibasilar opacities, consistent with pneumonia, however the possibility of pulmonary edema is not entirely ruled out. The left upper lobe nodule remains exactly the same, this will need eventual workup on outpatient basis and CT of the chest with contrast. His renal functioning today will prohibit doing a CT of the chest with contrast since his creatinine remains elevated. was made aware of this left upper lobe nodule, clearly at this point the patient is not a candidate for any surgical intervention, and is not a candidate for bronchoscopy and biopsy of this point. Objective - Vital Signs Vital signs: Vital Signs Temp 98.1 F 07/16/18 08:00 Pulse 60 07/16/18 11:00 Resp 22 07/16/18 11:00 BP 113/56 07/16/18 11:00 Pulse Ox 93 L 07/16/18 11:00 Intake & Output 07/15/18 07/16/18 07/16/18 18:59 06:59 18:59 Intake Total 1656.161 872.437 6436.835 Output Total 455 465 280 Balance 1201.161 4.833 846.835 Weight 129.1 kg 129.1 kg Intake: IV 440 220 120 Piperacillin-Tazobactam 3 200 50 .375 gm In Sodium Chloride 0.9% 100 ml @ 25 mls/hr IVPB Q8H [facility] Rx#: [id number] Sodium Chloride 0.9% 1, 240 220 70 000 ml @ 20 mls/hr IV . Q24H [facility] Rx#:[id number] Intake, IV Titration 736.161 249.833 526.835 Amount Heparin Sod,Pork in 0.45% 236.161 249.833 25.835 NaCl 25,000 unit In 0.45 % NaCl 1 250ml.bag @ 10.8 UNITS/KG/HR 13.84 mls/hr IV .Q18H4M [facility] Rx#: [id number] Vancomycin 2,000 mg In 500 501 Sodium Chloride 0.9% 500 ml 500 ml @ 167 mls/hr IVPB Q24H [facility] Rx#: [id number] Oral 480 480 Output: Urine 455 465 280 Other: Voiding Method Indwelling Catheter Indwelling Catheter Indwelling Catheter - Exam Physical Exam: Revealed 82-year-old white male on 3 l nasal cannula. Head: Atraumatic, normocephalic. HEENT:[Neck is supple.] [No neck masses.] [No thyromegaly.] [No JVD.] Chest: [Crackles and rhonchi and wheezes noted bilaterally symmetrical chest expansion, no chest wall tenderness..] Cardiac Exam: [Irregular irregular rhythm Normal S1 and S2, no S3 gallop, 2/6 systolic murmur thought the precordium. Abdomen: [Obese, Soft, nontender, no megaly, no rebound, no guarding, normal bowel sounds.] Extremities: [No clubbing, trace bipedal edema, chronic hyperpigmentation and venous stasis changes noted in lower extremities bilaterally..] Neurological Exam: Generally weak, otherwise [No focal neurologic deficit.] Psychiatric: Normal mood, affect, normal mental status today. Lymphatics: No lymphadenopathy. - Labs CBC & Chem 7: 07/16/18 05:20 07/16/18 05:20 Labs: Abnormal Lab Results - Last 24 Hours (Table) 07/15/18 07/15/18 07/15/18 Range/Units 16:55 17:40 20:07 PT (9.0-12.0) sec INR (<1.2) APTT 55.6 H (22.0-30.0) sec Potassium (3.5-5.1) mmol/L Chloride (98-107) mmol/L Carbon Dioxide (22-30) mmol/L BUN (9-20) mg/dL Creatinine (0.66-1.25) mg/dL Glucose (74-99) mg/dL POC Glucose (mg/dL) 168 H 172 H (75-99) mg/dL AST (17-59) U/L ALT (21-72) U/L Total Protein (6.3-8.2) g/dL Albumin (3.5-5.0) g/dL 07/16/18 07/16/18 07/16/18 Range/Units 05:20 05:20 07:13 PT 20.8 H (9.0-12.0) sec INR 2.1 H (<1.2) APTT 63.4 H (22.0-30.0) sec Potassium 3.4 L (3.5-5.1) mmol/L Chloride 97 L (98-107) mmol/L Carbon Dioxide 32 H (22-30) mmol/L BUN 27 H (9-20) mg/dL Creatinine 1.28 H (0.66-1.25) mg/dL Glucose 121 H (74-99) mg/dL POC Glucose (mg/dL) 107 H (75-99) mg/dL AST 72 H (17-59) U/L ALT 92 H (21-72) U/L Total Protein 5.4 L (6.3-8.2) g/dL Albumin 3.0 L (3.5-5.0) g/dL 07/16/18 Range/Units 11:52 PT (9.0-12.0) sec INR (<1.2) APTT (22.0-30.0) sec Potassium (3.5-5.1) mmol/L Chloride (98-107) mmol/L Carbon Dioxide (22-30) mmol/L BUN (9-20) mg/dL Creatinine (0.66-1.25) mg/dL Glucose (74-99) mg/dL POC Glucose (mg/dL) 121 H (75-99) mg/dL AST (17-59) U/L ALT (21-72) U/L Total Protein (6.3-8.2) g/dL Albumin (3.5-5.0) g/dL Microbiology - Last 24 Hours (Table) 07/13/18 20:40 Urine Culture - Final Urine,Voided Escherichia coli 07/14/18 02:50 Blood Culture Gram Stain - Final Blood Blood Culture - Final Enterococcus faecalis 07/14/18 03:03 Blood Culture Gram Stain - Final Blood Blood Culture - Final Enterococcus faecalis 07/14/18 18:03 Blood Culture - Preliminary Blood No Growth after 24 hours Assessment and Plan Assessment: Impression: 1 strongly suspect bilateral pneumonia, community-acquired, and sepsis. 2 elevated lactic acid secondary to sepsis. 3 brief episode of asystole requiring CPR for few minutes, with spontaneous recovery of pulse and circulation. This happened early this morning around 6: 20 AM while in the ICU, patient was about to be intubated, but was not done. Since the patient responded to CPR only. 4 generalized weakness secondary to sepsis and pneumonia 5 electrolytes imbalance mostly hyponatremia exact etiology is not clear. And hypokalemia 6 chronic atrial fibrillation 7 type 2 diabetes 8 previous CABG 9 history of pacemaker implantation 10 chronic kidney disease stage III. 11 acute hypoxic respiratory failure secondary to COPD and pneumonia. 12 acute exacerbation of COPD. Patient had remote smoking history. 13 elevated troponin, being addressed by cardiology. 14 left upper lobe solitary lung nodule, suspicious, will need further evaluation on outpatient basis, and hoping we can eventually perform a CT of the chest with contrast. But considering his renal functioning at present, this would prohibit performing a CT of the chest with contrast at this time. Recommendation: Continue antibiotics, bronchodilators, cardiac meds, antibiotics. Diuretics, consider transferring the patient out of the ICU to a monitor bed on selective today if the bed becomes available. Long-term prognosis is definitely poor and guarded considering his multiple cardiac issues and comorbidities as noted above. Again the patient is not a candidate for bronchoscopy, and not a candidate for a CT of the chest with contrast at this point to evaluate the left upper lobe nodule. We will continue to follow Time with Patient: Less than 30
[2018-07-16] MEDS: IOPAMIDOL-300 CONTRAST 30 ML VIAL (ORAL USE) PO PRN (12:37)
[2018-07-16] MEDS: AMPICILLIN-SULBACTAM 3 GM in SODIUM CHLORIDE 0.9% 100 ML IVPB SCH ×2 (12:51→17:30)
[2018-07-16] MEDS ORDERED: IOPAMIDOL-300 CONTRAST 30 ML VIAL (ORAL USE) PO PRN (16:18)
--- NOTE | 2018-07-16 16:40 | P.PN ---
Subjective Progress Note Date: 07/16/18 Principal diagnosis: Enterococcus faecalis bacteremia The patient denies any fever or chills denies having any chest pain or shortness of breath he did have mild cough not bringing up any sputum no nausea no vomiting no abdominal pain and no diarrhea a CT of abdominal pelvis was ordered however the patient say he wants to rest and wants to do tomorrow Objective - Vital Signs Vital signs: Vital Signs Temp 97.8 F 07/16/18 16:00 Pulse 60 07/16/18 16:00 Resp 15 07/16/18 16:00 BP 144/66 07/16/18 16:00 Pulse Ox 94 L 07/16/18 16:00 Intake & Output 07/15/18 07/16/18 07/16/18 18:59 06:59 18:59 Intake Total 1656.161 840.482 8496.835 Output Total 455 465 650 Balance 1201.161 4.833 776.835 Weight 129.1 kg 129.1 kg Intake: IV 440 220 220 Piperacillin-Tazobactam 3 200 100 .375 gm In Sodium Chloride 0.9% 100 ml @ 25 mls/hr IVPB Q8H [facility] Rx#: [id number] Sodium Chloride 0.9% 1, 240 220 120 000 ml @ 20 mls/hr IV . Q24H [facility] Rx#:[id number] Intake, IV Titration 736.161 249.833 726.835 Amount Ampicillin-Sulbactam 3 gm 200 In Sodium Chloride 0.9% 100 ml @ 200 mls/hr IVPB Q6HR [facility] Rx#:[id number] Heparin Sod,Pork in 0.45% 236.161 249.833 25.835 NaCl 25,000 unit In 0.45 % NaCl 1 250ml.bag @ 10.8 UNITS/KG/HR 13.84 mls/hr IV .Q18H4M [facility] Rx#: [id number] Vancomycin 2,000 mg In 500 501 Sodium Chloride 0.9% 500 ml 500 ml @ 167 mls/hr IVPB Q24H [facility] Rx#: [id number] Oral 480 480 Output: Urine 455 465 650 Other: Voiding Method Indwelling Catheter Indwelling Catheter Indwelling Catheter - Exam GENERAL DESCRIPTION: Elderly male lying in bed in no distress RESPIRATORY SYSTEM: Unlabored breathing , decreased breath sounds at bases, no wheezes or crackles HEART: S1 S2 regular rate and rhythm ,no loud murmurs ABDOMEN: Soft , no tenderness EXTREMITIES: 2+ edema feet SKIN: Multiple bruises and skin breakdown and no active cellulitis - Labs CBC & Chem 7: 07/16/18 05:20 07/16/18 15:04 Labs: Abnormal Lab Results - Last 24 Hours (Table) 07/15/18 07/15/18 07/15/18 Range/Units 16:55 17:40 20:07 PT (9.0-12.0) sec INR (<1.2) APTT 55.6 H (22.0-30.0) sec Potassium (3.5-5.1) mmol/L Chloride (98-107) mmol/L Carbon Dioxide (22-30) mmol/L BUN (9-20) mg/dL Creatinine (0.66-1.25) mg/dL Glucose (74-99) mg/dL POC Glucose (mg/dL) 168 H 172 H (75-99) mg/dL AST (17-59) U/L ALT (21-72) U/L Total Protein (6.3-8.2) g/dL Albumin (3.5-5.0) g/dL 07/16/18 07/16/18 07/16/18 Range/Units 05:20 05:20 07:13 PT 20.8 H (9.0-12.0) sec INR 2.1 H (<1.2) APTT 63.4 H (22.0-30.0) sec Potassium 3.4 L (3.5-5.1) mmol/L Chloride 97 L (98-107) mmol/L Carbon Dioxide 32 H (22-30) mmol/L BUN 27 H (9-20) mg/dL Creatinine 1.28 H (0.66-1.25) mg/dL Glucose 121 H (74-99) mg/dL POC Glucose (mg/dL) 107 H (75-99) mg/dL AST 72 H (17-59) U/L ALT 92 H (21-72) U/L Total Protein 5.4 L (6.3-8.2) g/dL Albumin 3.0 L (3.5-5.0) g/dL 07/16/18 Range/Units 11:52 PT (9.0-12.0) sec INR (<1.2) APTT (22.0-30.0) sec Potassium (3.5-5.1) mmol/L Chloride (98-107) mmol/L Carbon Dioxide (22-30) mmol/L BUN (9-20) mg/dL Creatinine (0.66-1.25) mg/dL Glucose (74-99) mg/dL POC Glucose (mg/dL) 121 H (75-99) mg/dL AST (17-59) U/L ALT (21-72) U/L Total Protein (6.3-8.2) g/dL Albumin (3.5-5.0) g/dL Microbiology - Last 24 Hours (Table) 07/14/18 03:06 Gram Stain - Final Sputum Sputum Culture - Final 07/13/18 20:40 Urine Culture - Final Urine,Voided Escherichia coli 07/14/18 02:50 Blood Culture Gram Stain - Final Blood Blood Culture - Final Enterococcus faecalis 07/14/18 03:03 Blood Culture Gram Stain - Final Blood Blood Culture - Final Enterococcus faecalis 07/14/18 18:03 Blood Culture - Preliminary Blood No Growth after 24 hours Assessment and Plan (1) Bacteremia due to Enterococcus Current Visit: Yes Status: Acute Code(s): R78.81 - BACTEREMIA; B95.2 - ENTEROCOCCUS THE CAUSE OF DISEASES CLASSIFIED ELSEWHERE SNOMED Code(s): 945242705090 Plan: Patient admitted hospital with sepsis in this patient did have a fever of 10 2 F the patient did have elevated white count patient now with evidence of enterococcus bacteremia , the patient UA was not significantly positive and urine cultures currently showing a gram-negative and not enterococcus faecalis the patient did have an ultrasound of the abdominal done raises some abnormality at the right upper quadrant however patient was noticed to have no tenderness in the right upper quadrant area a CT of abdominal pelvis has been ordered to rule out any intra-abdominal source however the patient wants to rest today and would like to do tomorrow we will discontinue the Zosyn and vancomycin as the organism is sensitive antibiotic will be switched over to Unasyn 3 g every 6 and we'll monitor his clinical course closely Time with Patient: Less than 30
[2018-07-16] MEDS ORDERED: POTASSIUM CHLORIDE ER 20 MEQ TAB.ER PO SCH (17:00)
[2018-07-16 17:09] LABS: Glucose,Whole Blood 109 mg/dL (75-99)
--- NOTE | 2018-07-16 17:33 | PN ---
PROGRESS NOTE DATE OF SERVICE: 07/16/2018 This 82-year-old gentleman who was admitted with previous pneumonia possibly gram- negative as well as severe sepsis and septic shock also had acute hypoxic respiratory failure. The lactic acid was also elevated. An abdominal ultrasound done this morning showed hepatomegaly and cholelithiasis. Otherwise, the most recent chest x-ray which was done today and reviewed personally by me showed right lower lobe opacities. Cardiology is also following the patient closely. The patient had short runs of PSVT. The patient had electrolytes abnormalities also. A 2D echocardiogram done on July 14 shows ejection fraction 40-45 percent. A BNP level is not available at this time. Multiple blood cultures showed Enterococcus faecalis and urine culture showed E coli. PAST MEDICAL HISTORY: Reviewed. REVIEW OF SYSTEMS: Could not be taken the patient is confused. CURRENT MEDICATIONS: Reviewed and include: 1. [place] 7.5 q.6h p.r.n. 2. DuoNeb q.i.d. and p.r.n. 3. Unasyn 3 g IV q.6h. 4. Aspirin 81 mg p.o. daily. 5. Lipitor 10 mg daily. 6. Coreg 12.5 mg b.i.d. 7. Colace 100 mg b.i.d. 8. IV heparin. 9. NovoLog scale. 10.Potassium. 11.Aldactone. 12.Ultram. 13.Coumadin. PHYSICAL EXAM: Patient is alert, oriented x2. Pulse 60, blood pressure 111/54, respiratory rate 20, temperature 97.8, pulse ox 92% on 3 L. HEENT is conjunctivae normal. Neck is no jugular venous distention. CARDIOVASCULAR: S1, S2 muffled. RESPIRATIONS: Breath sounds diminished in the bases. Scattered rhonchi and crackles. ABDOMEN: Soft, obese, nontender. Legs: No edema. No swelling. CENTRAL NERVOUS SYSTEM: No focal deficits. LABS: Labs are reviewed include WBC 9.8, hemoglobin 14.8, INR 2.1 and creatinine is 1.28. Other labs reviewed. ASSESSMENT: 1. Bibasilar pneumonia possibly gram-negative, possibly community-acquired with severe sepsis present on admission with acute hypoxic respiratory failure. 2. Elevated lactic acid secondary to sepsis. 3. Possible sepsis, Enterococcus faecalis and urine culture showed E coli. 4. Change in mental status secondary to acute metabolic encephalopathy secondary to sepsis. 5. Increased creatinine with chronic kidney disease stage III. 6. Congestive heart failure, acute exacerbation, acute on chronic systolic dysfunction, ejection fraction 40-45 percent. 7. Hyponatremia. 8. Increased WBC. 9. Torsades meghana pointes and brief cardiac arrest previously. 10.Hypertension. 11.Atrial fibrillation with bradycardia history. 12.History of congestive heart failure. 13.Diabetes mellitus type 2. 14.History of appendectomy. 15.History of coronary artery disease, coronary artery bypass grafting, history of degenerative joint disease, history of pacemaker, history atrial fibrillation, history of congestive heart failure with chronic systolic dysfunction/40 to 45% with 2D echo. 16.Cholelithiasis. 17.FULL CODE. RECOMMENDATIONS AND DISCUSSION: This 82-year-old gentleman who presented with multiple complex medical issues. We will monitor the patient closely. Continue the current medications, management and symptomatic treatment. Otherwise, I would recommend to stop the heparin. Continue with Coumadin and monitor PT, INR closely. We will continue the Unasyn at this time. Otherwise, continue the rest of medications. Overall prognosis is extremely guarded because of multiple complex medical issues. Further recommendations to follow. Patient does have cholelithiasis at this time. I would also recommend a CT scan of the abdomen, pelvis and chest also to complete the workup at this point in this morbidly obese. MMODL / IJN: [id number] /
[2018-07-16] MEDS: WARFARIN 2.5 MG TAB PO SCH (18:14)
[2018-07-16] MEDS: SODIUM CHLORIDE 0.9% 1,000 ML IV SCH (21:02)
[2018-07-16 21:04] LABS: Glucose,Whole Blood 97 mg/dL (75-99)
[2018-07-17] MEDS ORDERED: POTASSIUM CHLORIDE ER 20 MEQ TAB.ER PO SCH
[2018-07-17] MEDS: AMPICILLIN-SULBACTAM 3 GM in SODIUM CHLORIDE 0.9% 100 ML IVPB SCH ×4 (00:24→17:58)
[2018-07-17] MEDS: HYDROcodone/APAP 7.5-325MG 1 EACH TAB PO PRN ×4 (02:58→22:07)
[2018-07-17] MEDS ORDERED: VANCOMYCIN TROUGH DUE 1 EACH MISC MISCELLANE ONE (06:00)
[2018-07-17 06:12] LABS: Basophils # (A) 0.1 k/uL (0-0.2); Basophils % (A) 1 %; Eosinophils # (A) 0.2 k/uL (0-0.7); Eosinophils % (A) 3 %; HCT 45.9 % (39.0-53.0); HGB 14.5 gm/dL (13.0-17.5); Lymphocytes # (A) 0.7 k/uL (1.0-4.8); Lymphocytes % (A) 9 %; MCH 30.3 pg (25.0-35.0); MCHC 31.6 g/dL (31.0-37.0); MCV 95.9 fL (80.0-100.0); Monocytes # (A) 0.6 k/uL (0-1.0); Monocytes % (A) 8 %; Neutrophils # (A) 5.8 k/uL (1.3-7.7); Neutrophils % (A) 76 %; Platelet Count 175 k/uL (150-450); RBC 4.79 m/uL (4.30-5.90); RDW 14.4 % (11.5-15.5); WBC 7.7 k/uL (3.8-10.6)
[2018-07-17] MEDS: traMADol 50 MG TAB PO PRN (06:15)
[2018-07-17 06:17] LABS: INR 3.2 (<1.2); Prothrombin Time 31.1 sec (9.0-12.0)
[2018-07-17 06:22] LABS: Potassium 4.2 mmol/L (3.5-5.1)
[2018-07-17 07:27] LABS: Glucose,Whole Blood 95 mg/dL (75-99)
[2018-07-17] MEDS: IOPAMIDOL-300 CONTRAST 30 ML VIAL (ORAL USE) PO PRN ×2 (07:32→08:35)
[2018-07-17] MEDS: INSULIN ASPART 100 UNIT/ML 1 ML 10 ML VIAL SQ SCH ×4 (07:40→20:49)
[2018-07-17] MEDS: DOCUSATE 100 MG CAP PO SCH (08:33)
[2018-07-17] MEDS: MAGNESIUM OXIDE 400 MG TAB PO SCH (08:33)
[2018-07-17] MEDS: ATORVASTATIN 10 MG TAB PO SCH (08:34)
[2018-07-17] MEDS: CARVEDILOL 12.5 MG TAB PO SCH ×2 (08:34→17:58)
[2018-07-17] MEDS: ASPIRIN 81 MG PO SCH (08:34)
[2018-07-17] MEDS: SPIRONOLACTONE 25 MG TAB PO SCH (08:34)
[2018-07-17] MEDS: IPRATROPIUM-ALBUTEROL 3 ML NEB INHALATION SCH ×4 (09:41→19:14)
--- NOTE | 2018-07-17 09:50 | CT ---
EXAMINATION TYPE: CT ChestAbdPelvis wo con DATE OF EXAM: 07/17/2018 COMPARISON: HISTORY: sepsis, pneumonia CT DLP: 1853mGycm Unenhanced CT of the Chest, Abdomen and Pelvis Unenhanced CT of the chest ,abdomen and pelvis is performed. The lack of intravenous contrast limits evaluation of the solid and hollow viscera. Oral contrast: Yes CT Chest: LUNGS: Bilateral pleural effusions are noted right greater than left with basilar compressive atelect asis or infiltrates. Infiltrates are seen within the upper lung carreon. Calcified nodule seen within the left upper lobe measuring 2 cm. Additional calcified nodule left lower lobe also measuring 2 cm. MEDIASTINUM: Cardiomegaly. There is atheromatous and ectatic change of the thoracic aorta. Thoracic a ortic aneurysm at the level of the aortic hiatus measuring 6 cm. no evidence for adenopathy. HILAR STRUCTURES: No evidence for mass. No hilar adenopathy is appreciated. OTHER: No significant abnormality. CONTRAST CT ABDOMEN AND PELVIS: Portions of the left hemiabdomen are cut off the [id number] limiting examination. LIVER/GB: Small calcified gallstones identified. No space occupying hepatic lesion. Biliary tree is o f normal caliber. PANCREAS: No inflammation. No distinct mass. SPLEEN: No splenic enlargement. No lesion seen. ADRENALS: No nodule. No thickening. KIDNEYS/BLADDER: Atrophic changes of the bilateral kidneys left greater than right. No hydronephrosis . No nephrolithiasis. No distinct renal mass. Lara balloon catheter is in place. BOWEL: Normal bowel caliber. No inflammation. Left hemiabdominal bowel loops are cut off the field- of-view. GENITAL ORGANS: No gross abnormality. LYMPH NODES: No greater than 1cm abdominal or pelvic lymph nodes are appreciated. AORTA: Abdominal aortic bypass graft. OSSEOUS STRUCTURES: No significant abnormality is seen. OTHER: No evidence for free air or abscess. IMPRESSION: 1. Bilateral pleural effusions right greater than left with scattered areas of infiltrate and atelect asis likely reflecting underlying pneumonia. Correlate clinically. 2. 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 3. Renal atrophic changes left greater than right. 4. Cholelithiasis without wall thickening.
--- NOTE | 2018-07-17 11:44 | P.PN ---
Subjective Progress Note Date: 07/17/18 Principal diagnosis: Acute community-acquired pneumonia and enterococcal bacteremia and sepsis This is an 82-year-old white male with history of multiple medical problems including chronic atrial fibrillation, congestive heart failure, COPD, hypertension, hyperlipidemia, coronary artery disease and previous CABG. [facility] however this time he was brought in by his daughter who lives with the patient, and she has been noticing that the patient is getting generally weak, unable to get up from the bed to walk although he does have a walker and sometimes he uses an electric wheelchair. Upon evaluation in the ER, the patient was noted to be dehydrated, his lactic acid was also noted to be elevated, and a chest x-ray was done which I reviewed myself, suspicious for infiltrate in the right perihilar area and possibly in the left lower lobe. Patient had a temp of 102 on admission, hence he was started on IV antibiotics, bronchodilators, and this consult was initiated. Patient was also started back on his usual cardiac meds including Coumadin. The patient himself is a very poor historian, when asked about his symptoms, patient suggested that he call his . Patient was reevaluated today on 07/15/2018, remains in the ICU, hemodynamically stable, improved from the pulmonary perspective, however he is still requires about 5 L nasal cannula to maintain adequate saturation. Patient is refusing labs to be drawn today, he is also refusing to have a chest x-ray done. Insisting that he wouldn't have any of this done on to his shows up later today. His WBC count today is 11.7, hemoglobin 16.4. Electrolytes were noted to be abnormal with low potassium of 3.2. His BUN is 25 creatinine is 1.27. His creatinine yesterday was 1.09. Patient agreed to have the labs drawn, but refuses to have a chest x-ray done. Hence we'll delay the chest x-ray until tomorrow. Patient was reevaluated today on 07/16/2018, remains in the ICU, feeling much per her today, breathing a lot easier, remains on 2 L nasal cannula, O2 saturation is adequate. Patient seems to be agreeable today to have blood drawn and x-ray done, his is sitting at bedside. He did well have one episode of cough earlier today, and his sputum was blood tinged. Patient is on anticoagulation therapy. INR today is 2.1, PTT is 63.4. Electrolytes are normal except for slightly low potassium of 3.4, creatinine is 1.28, basically about the same over the last couple of days. Chest x-ray this morning continues to show cardiomegaly, patchy bibasilar opacities, consistent with pneumonia, however the possibility of pulmonary edema is not entirely ruled out. The left upper lobe nodule remains exactly the same, this will need eventual workup on outpatient basis and CT of the chest with contrast. His renal functioning today will prohibit doing a CT of the chest with contrast since his creatinine remains elevated. was made aware of this left upper lobe nodule, clearly at this point the patient is not a candidate for any surgical intervention, and is not a candidate for bronchoscopy and biopsy of this point. Patient was reevaluated today on 07/17/2018, remains in the ICU, patient is doing quite well. He is relatively asymptomatic, remains on few liters nasal cannula , denies any cough or wheezing or shortness of breath. Patient had a CT of the chest abdomen and pelvis, and he was found to have bilateral pleural effusions and compressive atelectasis, possible infiltrates in upper lung carreon. The nodule in the left upper lobe was noted to be calcified, hence makes malignancy less likely. Patient was also noted to have bilateral pleural effusions, and distal thoracic aortic aneurysm at the level of the aortic hiatus, and according to the he always had this aneurysm, and he chose not to have anything done about it. Apparently has been present for quite some time, and he decided to leave it alone. There was also evidence of cholelithiasis without wall thickening. His urine did not show evidence of enterococcus faecalis, it did show evidence of gram-negative bacilli. In the meantime the patient remains on Zosyn and vancomycin as per infectious disease on the case. Objective - Vital Signs Vital signs: Vital Signs Temp 97.7 F 07/17/18 08:00 Pulse 60 07/17/18 11:00 Resp 14 07/17/18 11:00 BP 117/56 07/17/18 11:00 Pulse Ox 97 07/17/18 11:00 Intake & Output 07/16/18 07/17/18 07/17/18 18:59 06:59 18:59 Intake Total 1446.835 430 40 Output Total 825 1045 360 Balance 621.835 -615 -320 Weight 129.1 kg 125.5 kg Intake: IV 240 210 40 Piperacillin-Tazobactam 3 100 100 .375 gm In Sodium Chloride 0.9% 100 ml @ 25 mls/hr IVPB Q8H [facility] Rx#: [id number] Sodium Chloride 0.9% 1, 140 110 40 000 ml @ 20 mls/hr IV . Q24H [facility] Rx#:[id number] Intake, IV Titration 726.835 100 Amount Ampicillin-Sulbactam 3 gm 200 100 In Sodium Chloride 0.9% 100 ml @ 200 mls/hr IVPB Q6HR [facility] Rx#:[id number] Heparin Sod,Pork in 0.45% 25.835 NaCl 25,000 unit In 0.45 % NaCl 1 250ml.bag @ 10.8 UNITS/KG/HR 13.84 mls/hr IV .Q18H4M [facility] Rx#: [id number] Vancomycin 2,000 mg In 501 Sodium Chloride 0.9% 500 ml 500 ml @ 167 mls/hr IVPB Q24H [facility] Rx#: [id number] Oral 480 120 Output: Urine 825 1045 360 Other: Voiding Method Indwelling Catheter Indwelling Catheter Indwelling Catheter - Exam Physical Exam: Revealed 82-year-old white male on 3 l nasal cannula. Head: Atraumatic, normocephalic. HEENT:[Neck is supple.] [No neck masses.] [No thyromegaly.] [No JVD.] Chest: Minimal Crackles and rhonchi no wheezes noted bilaterally symmetrical chest expansion, no chest wall tenderness..] Cardiac Exam: [Irregular irregular rhythm Normal S1 and S2, no S3 gallop, 2/6 systolic murmur thought the precordium. Abdomen: [Obese, Soft, nontender, no megaly, no rebound, no guarding, normal bowel sounds.] Extremities: [No clubbing, trace bipedal edema, chronic hyperpigmentation and venous stasis changes noted in lower extremities bilaterally..] Neurological Exam: Generally weak, otherwise [No focal neurologic deficit.] Psychiatric: Normal mood, affect, normal mental status today. Lymphatics: No lymphadenopathy. - Labs CBC & Chem 7: 07/17/18 05:54 07/17/18 05:54 Labs: Abnormal Lab Results - Last 24 Hours (Table) 07/16/18 07/16/18 07/17/18 Range/Units 11:52 17:06 05:54 Lymphocytes # 0.7 L (1.0-4.8) k/uL PT (9.0-12.0) sec INR (<1.2) Carbon Dioxide (22-30) mmol/L BUN (9-20) mg/dL Glucose (74-99) mg/dL POC Glucose (mg/dL) 121 H 109 H (75-99) mg/dL 07/17/18 07/17/18 Range/Units 05:54 05:54 Lymphocytes # (1.0-4.8) k/uL PT 31.1 H (9.0-12.0) sec INR 3.2 H (<1.2) Carbon Dioxide 32 H (22-30) mmol/L BUN 22 H (9-20) mg/dL Glucose 107 H (74-99) mg/dL POC Glucose (mg/dL) (75-99) mg/dL Microbiology - Last 24 Hours (Table) 07/14/18 18:03 Blood Culture - Preliminary Blood No Growth after 48 hours 07/14/18 03:06 Gram Stain - Final Sputum Sputum Culture - Final 07/13/18 20:40 Urine Culture - Final Urine,Voided Escherichia coli Assessment and Plan Assessment: Impression: 1 strongly suspect bilateral pneumonia, community-acquired, and sepsis. 2 elevated lactic acid secondary to sepsis. 3 brief episode of asystole requiring CPR for few minutes, with spontaneous recovery of pulse and circulation. This happened early this morning around 6: 20 AM while in the ICU, patient was about to be intubated, but was not done. Since the patient responded to CPR only. 4 generalized weakness secondary to sepsis and pneumonia 5 electrolytes imbalance mostly hyponatremia exact etiology is not clear. And hypokalemia 6 chronic atrial fibrillation 7 type 2 diabetes 8 previous CABG 9 history of pacemaker implantation 10 chronic kidney disease stage III. 11 acute hypoxic respiratory failure secondary to COPD and pneumonia. 12 acute exacerbation of COPD. Patient had remote smoking history. 13 elevated troponin, being addressed by cardiology. 14 left upper lobe solitary lung nodule, calcified, no further workup is necessary. 15 bacteremia secondary to Enterococcus faecalis, exact source is not clear, patient remains on antibiotics in the form of Zosyn and vancomycin. 16 old descending aortic aneurysm, chose not to have anything done about it in the past. Recommendation: Continue antibiotics, bronchodilators, cardiac meds, antibiotics. Diuretics, will arrange for the patient to transfer to a monitor bed on [facility] today if a bed is available. We'll continue to follow, patient again continues to have very complex medical issues, and prognosis in the long run remains guarded. Time with Patient: Less than 30
[2018-07-17 13:37] LABS: Glucose,Whole Blood 97 mg/dL (75-99)
[2018-07-17 16:51] LABS: Glucose,Whole Blood 90 mg/dL (75-99)
--- NOTE | 2018-07-17 17:13 | P.PN ---
Subjective Patient is doing very well. He has not had any episodes of PMVT now. He remains in a paced rhythm with underlying atrial fibrillation. Vitals are stable he's been lying flat in bed He was admitted with sepsis and had runs of PMVT. He also has a history of hypertension. His magnesium and potassium were very low. These have been replaced Currently he is tolerating carvedilol and spironolactone very well he remains on Coumadin is also on oral magnesium Blood pressure 124/64 mmHg respirations 18-20 afebrile pulse rate 60 paced Breath sounds are reduced bilaterally with occasional rhonchi Heart sounds. Soft Impression PMVT, nonsustained with associated hypomagnesemia hypokalemia Cardiomyopathy Likely underlying coronary artery disease Left ventricular ejection fraction 40-45% Mild heart failure chronic Labs are reviewed sodium 137 potassium 4.2 creatinine 0.95 Suggest Continue carvedilol at 12.5 g twice daily Continue spironolactone 50 mg by mouth daily Continue oral magnesium Minimize IV fluids and when necessary use of IV Lasix since the patient is iron IV antibiotics he does have cardio myopathy Please call us as needed Patient is stable from cardiovascular standpoint Objective - Vital Signs Vital signs: Vital Signs Temp 97.6 F 07/17/18 16:00 Pulse 60 07/17/18 16:00 Resp 24 07/17/18 16:00 BP 124/64 07/17/18 16:00 Pulse Ox 97 07/17/18 16:00 Intake & Output 07/16/18 07/17/18 07/17/18 18:59 06:59 18:59 Intake Total 1446.835 430 200 Output Total 825 1045 780 Balance 621.835 -615 -580 Weight 129.1 kg 125.5 kg Intake: IV 240 210 100 Piperacillin-Tazobactam 3 100 100 .375 gm In Sodium Chloride 0.9% 100 ml @ 25 mls/hr IVPB Q8H [facility] Rx#: [id number] Sodium Chloride 0.9% 1, 140 110 100 000 ml @ 20 mls/hr IV . Q24H [facility] Rx#:[id number] Intake, IV Titration 726.835 100 100 Amount Ampicillin-Sulbactam 3 gm 200 100 100 In Sodium Chloride 0.9% 100 ml @ 200 mls/hr IVPB Q6HR [facility] Rx#:[id number] Heparin Sod,Pork in 0.45% 25.835 NaCl 25,000 unit In 0.45 % NaCl 1 250ml.bag @ 10.8 UNITS/KG/HR 13.84 mls/hr IV .Q18H4M [facility] Rx#: [id number] Vancomycin 2,000 mg In 501 Sodium Chloride 0.9% 500 ml 500 ml @ 167 mls/hr IVPB Q24H [facility] Rx#: [id number] Oral 480 120 Output: Urine 825 1045 780 Other: Voiding Method Indwelling Catheter Indwelling Catheter Indwelling Catheter - Labs CBC & Chem 7: 07/17/18 05:54 07/17/18 05:54 Labs: Abnormal Lab Results - Last 24 Hours (Table) 07/17/18 07/17/18 07/17/18 Range/Units 05:54 05:54 05:54 Lymphocytes # 0.7 L (1.0-4.8) k/uL PT 31.1 H (9.0-12.0) sec INR 3.2 H (<1.2) Carbon Dioxide 32 H (22-30) mmol/L BUN 22 H (9-20) mg/dL Glucose 107 H (74-99) mg/dL Microbiology - Last 24 Hours (Table) 07/14/18 18:03 Blood Culture - Preliminary Blood No Growth after 48 hours 07/14/18 03:06 Gram Stain - Final Sputum Sputum Culture - Final
[2018-07-17] MEDS: WARFARIN 2.5 MG TAB PO SCH (17:58)
[2018-07-17] MEDS ORDERED: LORazepam 2 MG/ML INJ IV PRN (19:08)
--- NOTE | 2018-07-17 20:34 | PN ---
PROGRESS NOTE DATE OF SERVICE: 07/17/2018 This 82-year-old gentleman was admitted with bibasilar pneumonia, possibly gram- negative, possibly community-acquired, with severe sepsis with acute hypoxic respiratory failure. The patient also had elevated lactic acid, present on admission. A CT scan of the abdomen and pelvis and chest was done yesterday which showed bilateral pleural effusions and distal thoracic aortic aneurysm, renal atrophic changes, cholelithiasis without any wall thickening. The patient is on broad-spectrum IV antibiotics. Blood cultures have Enterococcus faecalis at this time. Multiple consultants are following the patient closely, including Infectious Disease. Past medical history reviewed. Review of systems could not be taken; the patient is currently confused. CURRENT MEDICATIONS: Reviewed. They include: 1. [place] 7.5 q.6 p.r.n. 2. DuoNeb q.i.d. and p.r.n. 3. Unasyn 3 grams IV q.6. 4. Aspirin 81 mg. 5. Lipitor 10 mg. 6. Coreg 12.5 mg b.i.d. 7. Colace 100 mg q.48 hours. 8. NovoLog scale. 9. Magnesium oxide 400 mg p.o. daily. 10.Aldactone 50 mg p.o. daily. 11.Ultram 25 mg q.6 p.r.n. 12.Coumadin 2.5 mg Saturday, Saturday, Saturday, Saturday; and 3.75 mg p.o. Saturday, Saturday, . PHYSICAL EXAMINATION: Patient is alert oriented x1. Pulse 60, blood pressure 124/64, respiration 24, temperature 97.6, pulse ox 96% on 3 L. HEENT: Conjunctivae normal. Oral mucosa moist. NECK: No jugular venous distention. No carotid bruit. No lymph node enlargement. CARDIOVASCULAR SYSTEM: S1, S2 muffled. RESPIRATORY SYSTEM: Breath sounds diminished at the bases. Bilateral scattered rhonchi and crackles. ABDOMEN: Soft, obese, non-tender. LEGS: Bilateral leg edema. NERVOUS SYSTEM: Diffusely weak. LABS: CBC within normal limits. Sodium 137, potassium 4.2, INR 3.2. ASSESSMENT: 1. Bibasilar pneumonia, possibly gram-negative, possibly community-acquired, with severe sepsis, present on admission with acute hypoxic respiratory failure. 2. Elevated lactic acid secondary to sepsis. 3. Bilateral pleural effusion. 4. Sepsis with Enterococcus faecalis and urine culture showed Escherichia coli. 5. Change in mental status secondary to acute metabolic acidosis secondary to sepsis. 6. Increased creatinine with chronic kidney disease, stage III. 7. Congestive heart failure, acute exacerbation, with acute on chronic systolic dysfunction, ejection fraction 40% to 45%. 8. Hyponatremia. 9. Increased white count. 10.Torsades meghana pointes and brief cardiac arrest recently. 11.Hypertension. 12.Atrial fibrillation with bradycardia history. 13.History of congestive heart failure. 14.History of diabetes mellitus, type 2. 15.History of appendectomy. 16.History of coronary artery disease, coronary artery bypass grafting. 17.History of degenerative joint disease. 18.History of pacemaker. 19.History of atrial fibrillation. 20.History of congestive heart failure with chronic systolic dysfunction, ejection fraction 40% to 45%. 21.Cholelithiasis. 22.FULL CODE. RECOMMENDATIONS AND DISCUSSION: I recommend to continue current medications, continue with the monitoring, symptomatic treatment. Otherwise at this time continue the broad-spectrum IV antibiotics. Closely follow with multiple consultants. Monitor fluid/electrolyte balance closely. I would recommend off-sedation PT/OT evaluation. Increase ambulation. I would also recommend a CT scan of the brain to complete the workup. Further recommendations to follow. See orders for further details. MMODL / IJN: [id number] /
[2018-07-17 20:51] LABS: Glucose,Whole Blood 90 mg/dL (75-99)
--- NOTE | 2018-07-17 21:36 | CT ---
EXAMINATION TYPE: CT brain wo con DATE OF EXAM: 07/17/2018 COMPARISON: HISTORY: stroke CT DLP: 1154.4 mGycm Automated exposure control for dose reduction was used. FINDINGS: There is cerebral cortical atrophy. There is no mass effect nor midline shift. There is no sign of in tracranial hemorrhage. Calvarium is intact. IMPRESSION: CEREBRAL ATROPHY. NO ACUTE INTRACRANIAL ABNORMALITY.
[2018-07-18] MEDS: AMPICILLIN-SULBACTAM 3 GM in SODIUM CHLORIDE 0.9% 100 ML IVPB SCH ×5 (00:56→23:48)
[2018-07-18] MEDS: SODIUM CHLORIDE 0.9% 1,000 ML IV SCH (00:57)
[2018-07-18] MEDS: traMADol 50 MG TAB PO PRN ×3 (01:34→22:30)
[2018-07-18] MEDS: HYDROcodone/APAP 7.5-325MG 1 EACH TAB PO PRN ×3 (04:47→20:11)
[2018-07-18 05:52] LABS: INR 4.9 (<1.2)
[2018-07-18 06:04] LABS: Anion Gap 7 mmol/L; Blood Urea Nitrogen 19 mg/dL (9-20); Calcium 9.1 mg/dL (8.4-10.2); Carbon Dioxide 30 mmol/L (22-30); Chloride 99 mmol/L (98-107); Glucose 87 mg/dL (74-99); Potassium 4.1 mmol/L (3.5-5.1); Sodium 136 mmol/L (137-145)
[2018-07-18 06:26] LABS: Basophils % (A) 1 %; Eosinophils # (A) 0.2 k/uL (0-0.7); Eosinophils % (A) 3 %; HCT 44.6 % (39.0-53.0); HGB 14.5 gm/dL (13.0-17.5); Lymphocytes # (A) 0.9 k/uL (1.0-4.8); Lymphocytes % (A) 13 %; MCH 31.3 pg (25.0-35.0); MCHC 32.6 g/dL (31.0-37.0); Mean Platelet Volume 7.2; Monocytes # (A) 0.5 k/uL (0-1.0); Monocytes % (A) 7 %; Neutrophils # (A) 5.2 k/uL (1.3-7.7); Neutrophils % (A) 72 %; Platelet Count 157 k/uL (150-450); RBC 4.64 m/uL (4.30-5.90); RDW 14.4 % (11.5-15.5); WBC 7.3 k/uL (3.8-10.6)
[2018-07-18] MEDS: INSULIN ASPART 100 UNIT/ML 1 ML 10 ML VIAL SQ SCH ×4 (06:54→20:07)
[2018-07-18 07:15] LABS: Glucose,Whole Blood 78 mg/dL (75-99)
[2018-07-18] MEDS: IPRATROPIUM-ALBUTEROL 3 ML NEB INHALATION SCH ×4 (07:25→20:00)
[2018-07-18] MEDS: SPIRONOLACTONE 25 MG TAB PO SCH (09:00)
[2018-07-18] MEDS: CARVEDILOL 12.5 MG TAB PO SCH ×2 (09:00→16:25)
[2018-07-18] MEDS: MAGNESIUM OXIDE 400 MG TAB PO SCH (09:00)
[2018-07-18] MEDS: ASPIRIN 81 MG PO SCH (09:00)
[2018-07-18] MEDS: ATORVASTATIN 10 MG TAB PO SCH (09:00)
[2018-07-18 11:45] LABS: Glucose,Whole Blood 83 mg/dL (75-99)
--- NOTE | 2018-07-18 12:41 | P.PN ---
Subjective Progress Note Date: 07/18/18 Principal diagnosis: Acute community-acquired pneumonia and enterococcal bacteremia and sepsis This is an 82-year-old white male with history of multiple medical problems including chronic atrial fibrillation, congestive heart failure, COPD, hypertension, hyperlipidemia, coronary artery disease and previous CABG. [facility] however this time he was brought in by his daughter who lives with the patient, and she has been noticing that the patient is getting generally weak, unable to get up from the bed to walk although he does have a walker and sometimes he uses an electric wheelchair. Upon evaluation in the ER, the patient was noted to be dehydrated, his lactic acid was also noted to be elevated, and a chest x-ray was done which I reviewed myself, suspicious for infiltrate in the right perihilar area and possibly in the left lower lobe. Patient had a temp of 102 on admission, hence he was started on IV antibiotics, bronchodilators, and this consult was initiated. Patient was also started back on his usual cardiac meds including Coumadin. The patient himself is a very poor historian, when asked about his symptoms, patient suggested that he call his . Patient was reevaluated today on 07/15/2018, remains in the ICU, hemodynamically stable, improved from the pulmonary perspective, however he is still requires about 5 L nasal cannula to maintain adequate saturation. Patient is refusing labs to be drawn today, he is also refusing to have a chest x-ray done. Insisting that he wouldn't have any of this done on to his shows up later today. His WBC count today is 11.7, hemoglobin 16.4. Electrolytes were noted to be abnormal with low potassium of 3.2. His BUN is 25 creatinine is 1.27. His creatinine yesterday was 1.09. Patient agreed to have the labs drawn, but refuses to have a chest x-ray done. Hence we'll delay the chest x-ray until tomorrow. Patient was reevaluated today on 07/16/2018, remains in the ICU, feeling much per her today, breathing a lot easier, remains on 2 L nasal cannula, O2 saturation is adequate. Patient seems to be agreeable today to have blood drawn and x-ray done, his is sitting at bedside. He did well have one episode of cough earlier today, and his sputum was blood tinged. Patient is on anticoagulation therapy. INR today is 2.1, PTT is 63.4. Electrolytes are normal except for slightly low potassium of 3.4, creatinine is 1.28, basically about the same over the last couple of days. Chest x-ray this morning continues to show cardiomegaly, patchy bibasilar opacities, consistent with pneumonia, however the possibility of pulmonary edema is not entirely ruled out. The left upper lobe nodule remains exactly the same, this will need eventual workup on outpatient basis and CT of the chest with contrast. His renal functioning today will prohibit doing a CT of the chest with contrast since his creatinine remains elevated. was made aware of this left upper lobe nodule, clearly at this point the patient is not a candidate for any surgical intervention, and is not a candidate for bronchoscopy and biopsy of this point. Patient was reevaluated today on 07/17/2018, remains in the ICU, patient is doing quite well. He is relatively asymptomatic, remains on few liters nasal cannula , denies any cough or wheezing or shortness of breath. Patient had a CT of the chest abdomen and pelvis, and he was found to have bilateral pleural effusions and compressive atelectasis, possible infiltrates in upper lung carreon. The nodule in the left upper lobe was noted to be calcified, hence makes malignancy less likely. Patient was also noted to have bilateral pleural effusions, and distal thoracic aortic aneurysm at the level of the aortic hiatus, and according to the he always had this aneurysm, and he chose not to have anything done about it. Apparently has been present for quite some time, and he decided to leave it alone. There was also evidence of cholelithiasis without wall thickening. His urine did not show evidence of enterococcus faecalis, it did show evidence of gram-negative bacilli. In the meantime the patient remains on Zosyn and vancomycin as per infectious disease on the case. Patient was reevaluated today on 07/18/2018, presently on overflow in the ICU. Doing fairly well, denies any cough no wheezing, no shortness of breath, no chest pain. Continues to have vague aches and pains especially in the lower extremities. His labs were reviewed, he had a relatively normal CBC and normal metabolic profile. Normal renal profile. Remains on antibiotics for Enterococcus faecalis bacteremia. Being followed by infectious disease on consultation. Objective - Vital Signs Vital signs: Vital Signs Temp 97.4 F L 07/18/18 09:00 Pulse 60 07/18/18 11:42 Resp 14 07/18/18 11:32 BP 126/62 07/18/18 11:00 Pulse Ox 91 L 07/18/18 09:00 Intake & Output 07/17/18 07/18/18 07/18/18 18:59 06:59 18:59 Intake Total 310 210 210 Output Total 940 1285 395 Balance -630 -4955 -218 Weight 123.9 kg 123.9 kg Intake: IV 110 210 210 Ampicillin-Sulbactam 3 gm 100 100 In Sodium Chloride 0.9% 100 ml @ 200 mls/hr IVPB Q6HR [facility] Rx#:[id number] Sodium Chloride 0.9% 1, 110 110 110 000 ml @ 20 mls/hr IV . Q24H [facility] Rx#:[id number] Intake, IV Titration 200 Amount Ampicillin-Sulbactam 3 gm 200 In Sodium Chloride 0.9% 100 ml @ 200 mls/hr IVPB Q6HR [facility] Rx#:[id number] Output: Urine 940 1285 395 Other: Voiding Method Indwelling Catheter Indwelling Catheter Indwelling Catheter - Exam Physical Exam: Revealed 82-year-old white male on 3 l nasal cannula. Head: Atraumatic, normocephalic. HEENT:[Neck is supple.] [No neck masses.] [No thyromegaly.] [No JVD.] Chest: Minimal Crackles and rhonchi no wheezes noted bilaterally symmetrical chest expansion, no chest wall tenderness..] Cardiac Exam: [Irregular irregular rhythm Normal S1 and S2, no S3 gallop, 2/6 systolic murmur thought the precordium. Abdomen: [Obese, Soft, nontender, no megaly, no rebound, no guarding, normal bowel sounds.] Extremities: [No clubbing, trace bipedal edema, chronic hyperpigmentation and venous stasis changes noted in lower extremities bilaterally.. Tenderness over the feet bilaterally especially the left foot.] Neurological Exam: Generally weak, otherwise [No focal neurologic deficit.] Psychiatric: Normal mood, affect, normal mental status today. Lymphatics: No lymphadenopathy. - Labs CBC & Chem 7: 07/18/18 05:19 07/18/18 05:19 Labs: Abnormal Lab Results - Last 24 Hours (Table) 07/18/18 07/18/18 07/18/18 Range/Units 05:19 05:19 05:19 Lymphocytes # 0.9 L (1.0-4.8) k/uL PT 47.0 H (9.0-12.0) sec INR 4.9 H (<1.2) Sodium 136 L (137-145) mmol/L Microbiology - Last 24 Hours (Table) 07/14/18 18:03 Blood Culture - Preliminary Blood No Growth after 72 hours 07/16/18 14:57 Blood Culture - Preliminary Blood No Growth after 24 hours 07/16/18 15:34 Blood Culture - Preliminary Blood No Growth after 24 hours Assessment and Plan Assessment: Impression: 1 strongly suspect bilateral pneumonia, community-acquired, and sepsis. 2 elevated lactic acid secondary to sepsis. 3 brief episode of asystole requiring CPR for few minutes, with spontaneous recovery of pulse and circulation. This happened early this morning around 6: 20 AM while in the ICU, patient was about to be intubated, but was not done. Since the patient responded to CPR only. 4 generalized weakness secondary to sepsis and pneumonia 5 electrolytes imbalance mostly hyponatremia exact etiology is not clear. And hypokalemia 6 chronic atrial fibrillation 7 type 2 diabetes 8 previous CABG 9 history of pacemaker implantation 10 chronic kidney disease stage III. 11 acute hypoxic respiratory failure secondary to COPD and pneumonia. 12 acute exacerbation of COPD. Patient had remote smoking history. 13 elevated troponin, being addressed by cardiology. 14 left upper lobe solitary lung nodule, calcified, no further workup is necessary. 15 bacteremia secondary to Enterococcus faecalis, exact source is not clear, patient remains on antibiotics in the form of Zosyn and vancomycin. 16 old descending aortic aneurysm, chose not to have anything done about it in the past. Recommendation: My plan is to continue present course of treatment including antibiotics, bronchodilators, diuretics, could be transferred out of the ICU once a bed is available on [facility]. All his issues are quite complex, he was updated today on his condition, and yesterday I had a long discussion with him and his regarding his CT of the chest, lung nodule, aortic aneurysm, and the patient is well aware of what happening. We'll continue to follow, not quite ready for discharge planning. We'll consult physical therapy to evaluate , may eventually require referral to a rehab facility. Time with Patient: Less than 30
[2018-07-18 17:02] LABS: Glucose,Whole Blood 105 mg/dL (75-99)
[2018-07-18] MEDS: WARFARIN 2.5 MG TAB PO SCH (18:14)
--- NOTE | 2018-07-18 18:35 | PN ---
PROGRESS NOTE DATE OF SERVICE: 07/18/2018 This 82-year-old gentleman who was admitted with bibasilar pneumonia also had features of sepsis. Patient had elevated lactic acidosis. Patient had bilateral pleural effusion also. Multiple consultants are following the patient closely. Sensorium is slightly improved at this time. The patient also had a CT scan of the brain and a CT scan of chest. CT scan of the brain showed no acute abnormality. Dr. Pandey and multiple consultants are following the patient closely. Past medical history reviewed. Review of systems could not be taken; patient is weak and tired. CURRENT MEDICATIONS: 1. [place] 7.5 q.6 p.r.n. 2. DuoNeb q.i.d. and p.r.n. 3. Unasyn 3 grams IV q.6. 4. Aspirin 81 mg. 5. Lipitor 10 mg daily. 6. Coreg 12.5 mg b.i.d. 7. Colace 100 mg p.o. q.48 hours. 8. NovoLog scale. 9. Ativan 0.5 mg once. 10.Magnesium oxide 400 mg daily. 11.Aldactone 50 mg daily. 12.Ultram 25 mg q.6. 13.Coumadin 2.5 mg and 3.75 mg. PHYSICAL EXAMINATION: Patient is alert, oriented x1. Pulse 60, blood pressure 130/69, respiration 12, temperature 97.4, pulse ox 92% on 3 L. HEENT: Conjunctivae normal. NECK: No jugular venous distention. CARDIOVASCULAR SYSTEM: S1, S2 muffled. RESPIRATORY SYSTEM: Breath sounds diminished at the bases. Bilateral scattered rhonchi and crackles. ABDOMEN: Soft, obese, non-tender. LEGS: Bilateral leg edema. NERVOUS SYSTEM: No focal deficit. Mild diffuse weakness. LABS: CBC within normal limits. INR is 4.9. Sodium is 136. ASSESSMENT: 1. Bibasilar pneumonia, possibly gram-negative, possibly community-acquired, with severe sepsis, present on admission, with acute hypoxic respiratory failure. 2. Elevated lactic acid secondary to sepsis. 3. Bilateral pleural effusions. 4. Sepsis with Enterococcus faecalis with the urine culture showing Escherichia coli. 5. Change in mental status secondary to acute metabolic acidosis secondary to sepsis. 6. Increased creatinine with chronic kidney disease, stage III. 7. Congestive heart failure, acute exacerbation, with acute on chronic systolic dysfunction, ejection fraction 40% to 45%. 8. Hyponatremia. 9. Increased white count. 10.Torsades meghana pointes and brief cardiac arrest recently. 11.Hypertension. 12.History of atrial fibrillation with bradycardia history. 13.History of congestive heart failure. 14.History of diabetes mellitus, type 2. 15.History of appendectomy. 16.History of coronary artery disease, coronary artery bypass grafting. 17.History of degenerative joint disease. 18.History of pacemaker. 19.History of atrial fibrillation. 20.History of congestive heart failure with chronic systolic dysfunction, ejection fraction 40% to 45%. 21.History of cholelithiasis. 22.FULL CODE. RECOMMENDATIONS AND DISCUSSION: I recommend to continue current medication, continue with the monitoring, symptomatic treatment. Continue with the antibiotics. Otherwise, prognosis is extremely guarded because of multiple complex medical issues. PT/OT evaluation and possible ECF rehab. I recommend to continue with the current medications. Will hold the Coumadin and monitor closely. Further recommendations to follow. MMODL / IJN: [id number] /
[2018-07-18 20:10] LABS: Glucose,Whole Blood 109 mg/dL (75-99)
--- NOTE | 2018-07-19 01:15 | P.PN ---
Subjective Progress Note Date: 07/17/18 Principal diagnosis: Enterococcus faecalis bacteremia The patient is afebrile the patient denies having any chest pain or shortness of breath he did have mild cough which is dry in nature the patient denies any nausea no vomiting no abdominal pain and no diarrhea a CT of abdominal pelvis and chest was completed this morning Objective - Vital Signs Vital signs: Vital Signs Temp 97.6 F 07/17/18 16:00 Pulse 60 07/17/18 19:00 Resp 16 07/17/18 19:00 BP 130/65 07/17/18 19:00 Pulse Ox 98 07/17/18 19:00 Intake & Output 07/17/18 07/17/18 07/18/18 06:59 18:59 06:59 Intake Total 430 310 10 Output Total 1045 940 100 Balance -615 -630 -90 Weight 125.5 kg Intake: IV 210 110 10 Piperacillin-Tazobactam 3 100 .375 gm In Sodium Chloride 0.9% 100 ml @ 25 mls/hr IVPB Q8H [facility] Rx#: [id number] Sodium Chloride 0.9% 1, 110 110 10 000 ml @ 20 mls/hr IV . Q24H [facility] Rx#:[id number] Intake, IV Titration 100 200 Amount Ampicillin-Sulbactam 3 gm 100 200 In Sodium Chloride 0.9% 100 ml @ 200 mls/hr IVPB Q6HR [facility] Rx#:[id number] Oral 120 Output: Urine 1045 940 100 Other: Voiding Method Indwelling Catheter Indwelling Catheter - Exam GENERAL DESCRIPTION: Elderly male lying in bed in no distress RESPIRATORY SYSTEM: Unlabored breathing , decreased breath sounds at bases, no wheezes or crackles HEART: S1 S2 regular rate and rhythm ,no loud murmurs ABDOMEN: Soft , no tenderness EXTREMITIES: 2+ edema feet SKIN: Multiple bruises and skin breakdown and no active cellulitis - Labs CBC & Chem 7: 07/18/18 05:19 07/18/18 05:19 Labs: Abnormal Lab Results - Last 24 Hours (Table) 07/17/18 07/17/18 07/17/18 Range/Units 05:54 05:54 05:54 Lymphocytes # 0.7 L (1.0-4.8) k/uL PT 31.1 H (9.0-12.0) sec INR 3.2 H (<1.2) Carbon Dioxide 32 H (22-30) mmol/L BUN 22 H (9-20) mg/dL Glucose 107 H (74-99) mg/dL Microbiology - Last 24 Hours (Table) 07/16/18 14:57 Blood Culture - Preliminary Blood No Growth after 24 hours 07/16/18 15:34 Blood Culture - Preliminary Blood No Growth after 24 hours 07/14/18 18:03 Blood Culture - Preliminary Blood No Growth after 48 hours Assessment and Plan (1) Bacteremia due to Enterococcus Current Visit: Yes Status: Acute Code(s): R78.81 - BACTEREMIA; B95.2 - ENTEROCOCCUS THE CAUSE OF DISEASES CLASSIFIED ELSEWHERE SNOMED Code(s): 288141028462 Plan: Patient admitted hospital with sepsis in this patient did have a fever of 10 2 F the patient did have elevated white count patient now with evidence of enterococcus bacteremia , the patient UA was not significantly positive and urine cultures currently showing a gram-negative and not enterococcus faecalis the patient did have an ultrasound of the abdominal done raises some abnormality at the right upper quadrant however patient was noticed to have no tenderness in the right upper quadrant area, CT of abdominal pelvis and it shows renal stone but no cholecystitis did have bilateral pleural effusion and some compressive atelectasis versus pneumonia however enterococcus is not a very common cause of pneumonia. Patient will need ADAIR to rule out infective endocarditis , the patient is currently on Unasyn that'll be continued for now follow-up blood culture has been negative Time with Patient: Less than 30
--- NOTE | 2018-07-19 01:17 | P.PN ---
Subjective Progress Note Date: 07/18/18 Principal diagnosis: Enterococcus faecalis bacteremia The patient denies any fever or chills the patient is feeling slightly better today he is breathing more comfortably with a mild cough which is dry in nature no chest pain no nausea no vomiting and no abdominal pain or any diarrhea Objective - Vital Signs Vital signs: Vital Signs Temp 97.5 F L 07/18/18 12:00 Pulse 60 07/18/18 14:00 Resp 16 07/18/18 14:00 BP 123/69 07/18/18 14:00 Pulse Ox 92 L 07/18/18 12:00 Intake & Output 07/17/18 07/18/18 07/18/18 18:59 06:59 18:59 Intake Total 310 210 250 Output Total 940 1285 520 Balance -630 -9385 -270 Weight 123.9 kg 123.9 kg Intake: IV 110 210 250 Ampicillin-Sulbactam 3 gm 100 100 In Sodium Chloride 0.9% 100 ml @ 200 mls/hr IVPB Q6HR [facility] Rx#:[id number] Sodium Chloride 0.9% 1, 110 110 150 000 ml @ 20 mls/hr IV . Q24H [facility] Rx#:[id number] Intake, IV Titration 200 Amount Ampicillin-Sulbactam 3 gm 200 In Sodium Chloride 0.9% 100 ml @ 200 mls/hr IVPB Q6HR [facility] Rx#:[id number] Output: Urine 940 1285 520 Other: Voiding Method Indwelling Catheter Indwelling Catheter Indwelling Catheter - Exam GENERAL DESCRIPTION: Elderly male lying in bed in no distress RESPIRATORY SYSTEM: Unlabored breathing , decreased breath sounds at bases, no wheezes or crackles HEART: S1 S2 regular rate and rhythm ,no loud murmurs ABDOMEN: Soft , no tenderness EXTREMITIES: 2+ edema feet SKIN: Multiple bruises and skin breakdown and no redness - Labs CBC & Chem 7: 07/18/18 05:19 07/18/18 05:19 Labs: Abnormal Lab Results - Last 24 Hours (Table) 07/18/18 07/18/18 07/18/18 Range/Units 05:19 05:19 05:19 Lymphocytes # 0.9 L (1.0-4.8) k/uL PT 47.0 H (9.0-12.0) sec INR 4.9 H (<1.2) Sodium 136 L (137-145) mmol/L Microbiology - Last 24 Hours (Table) 07/14/18 18:03 Blood Culture - Preliminary Blood No Growth after 72 hours 07/16/18 14:57 Blood Culture - Preliminary Blood No Growth after 24 hours 07/16/18 15:34 Blood Culture - Preliminary Blood No Growth after 24 hours Assessment and Plan (1) Bacteremia due to Enterococcus Current Visit: Yes Status: Acute Code(s): R78.81 - BACTEREMIA; B95.2 - ENTEROCOCCUS THE CAUSE OF DISEASES CLASSIFIED ELSEWHERE SNOMED Code(s): 445001013761 Plan: Patient admitted hospital with sepsis in this patient did have a fever of 10 2 F the patient did have elevated white count patient now with evidence of enterococcus bacteremia , the patient UA was not significantly positive and urine cultures currently showing a gram-negative and not enterococcus faecalis the patient did have an ultrasound of the abdominal done raises some abnormality at the right upper quadrant however patient was noticed to have no tenderness in the right upper quadrant area, CT of abdominal pelvis and it shows renal stone but no cholecystitis did have bilateral pleural effusion and some compressive atelectasis versus pneumonia however enterococcus is not a very common cause of pneumonia. Patient will need ADAIR to rule out infective endocarditis , this was discussed with the nurse practitioner for the cardiology and currently awaiting a call back from Dr. Martinez, the patient follow-up blood culture has been negative , the patient will be continued on Unasyn 3 g every 6 hours at this point Time with Patient: Less than 30
[2018-07-19] MEDS: HYDROcodone/APAP 7.5-325MG 1 EACH TAB PO PRN ×3 (05:14→18:20)
[2018-07-19] MEDS: AMPICILLIN-SULBACTAM 3 GM in SODIUM CHLORIDE 0.9% 100 ML IVPB SCH ×3 (05:14→17:30)
[2018-07-19] MEDS: SODIUM CHLORIDE 0.9% 1,000 ML IV SCH (05:14)
[2018-07-19] MEDS: INSULIN ASPART 100 UNIT/ML 1 ML 10 ML VIAL SQ SCH ×4 (05:41→20:07)
[2018-07-19 06:00] LABS: Anion Gap 6 mmol/L; Basophils # (A) 0.1 k/uL (0-0.2); Basophils % (A) 1 %; Blood Urea Nitrogen 19 mg/dL (9-20); Calcium 9.3 mg/dL (8.4-10.2); Carbon Dioxide 35 mmol/L (22-30); Chloride 97 mmol/L (98-107); Eosinophils # (A) 0.3 k/uL (0-0.7); Eosinophils % (A) 4 %; Glucose 100 mg/dL (74-99); HCT 49.3 % (39.0-53.0); HGB 15.4 gm/dL (13.0-17.5); Lymphocytes # (A) 1.2 k/uL (1.0-4.8); Lymphocytes % (A) 14 %; MCHC 31.2 g/dL (31.0-37.0); MCV 96.2 fL (80.0-100.0); Monocytes # (A) 0.6 k/uL (0-1.0); Monocytes % (A) 7 %; Neutrophils # (A) 5.8 k/uL (1.3-7.7); Neutrophils % (A) 71 %; Platelet Count 165 k/uL (150-450); RBC 5.13 m/uL (4.30-5.90); RDW 14.3 % (11.5-15.5); Sodium 138 mmol/L (137-145); WBC 8.2 k/uL (3.8-10.6)
[2018-07-19] MEDS: traMADol 50 MG TAB PO PRN ×2 (07:48→19:54)
[2018-07-19] MEDS: IPRATROPIUM-ALBUTEROL 3 ML NEB INHALATION SCH ×4 (08:53→19:24)
[2018-07-19] MEDS: CARVEDILOL 12.5 MG TAB PO SCH ×2 (09:14→17:30)
[2018-07-19] MEDS: SPIRONOLACTONE 25 MG TAB PO SCH ×2 (09:15→09:16)
[2018-07-19] MEDS: ASPIRIN 81 MG PO SCH (09:16)
[2018-07-19] MEDS: MAGNESIUM OXIDE 400 MG TAB PO SCH (09:16)
[2018-07-19] MEDS: ATORVASTATIN 10 MG TAB PO SCH (09:17)
[2018-07-19] MEDS: DOCUSATE 100 MG CAP PO SCH (09:17)
[2018-07-19 10:12] LABS: Prothrombin Time 48.9 sec (9.0-12.0)
[2018-07-19 10:19] LABS: INR 5.1 (<1.2)
--- NOTE | 2018-07-19 11:10 | P.PN ---
Subjective Progress Note Date: 07/19/18 Principal diagnosis: Acute community-acquired pneumonia and enterococcal bacteremia and sepsis This is an 82-year-old white male with history of multiple medical problems including chronic atrial fibrillation, congestive heart failure, COPD, hypertension, hyperlipidemia, coronary artery disease and previous CABG. [facility] however this time he was brought in by his daughter who lives with the patient, and she has been noticing that the patient is getting generally weak, unable to get up from the bed to walk although he does have a walker and sometimes he uses an electric wheelchair. Upon evaluation in the ER, the patient was noted to be dehydrated, his lactic acid was also noted to be elevated, and a chest x-ray was done which I reviewed myself, suspicious for infiltrate in the right perihilar area and possibly in the left lower lobe. Patient had a temp of 102 on admission, hence he was started on IV antibiotics, bronchodilators, and this consult was initiated. Patient was also started back on his usual cardiac meds including Coumadin. The patient himself is a very poor historian, when asked about his symptoms, patient suggested that he call his . Patient was reevaluated today on 07/15/2018, remains in the ICU, hemodynamically stable, improved from the pulmonary perspective, however he is still requires about 5 L nasal cannula to maintain adequate saturation. Patient is refusing labs to be drawn today, he is also refusing to have a chest x-ray done. Insisting that he wouldn't have any of this done on to his shows up later today. His WBC count today is 11.7, hemoglobin 16.4. Electrolytes were noted to be abnormal with low potassium of 3.2. His BUN is 25 creatinine is 1.27. His creatinine yesterday was 1.09. Patient agreed to have the labs drawn, but refuses to have a chest x-ray done. Hence we'll delay the chest x-ray until tomorrow. Patient was reevaluated today on 07/16/2018, remains in the ICU, feeling much per her today, breathing a lot easier, remains on 2 L nasal cannula, O2 saturation is adequate. Patient seems to be agreeable today to have blood drawn and x-ray done, his is sitting at bedside. He did well have one episode of cough earlier today, and his sputum was blood tinged. Patient is on anticoagulation therapy. INR today is 2.1, PTT is 63.4. Electrolytes are normal except for slightly low potassium of 3.4, creatinine is 1.28, basically about the same over the last couple of days. Chest x-ray this morning continues to show cardiomegaly, patchy bibasilar opacities, consistent with pneumonia, however the possibility of pulmonary edema is not entirely ruled out. The left upper lobe nodule remains exactly the same, this will need eventual workup on outpatient basis and CT of the chest with contrast. His renal functioning today will prohibit doing a CT of the chest with contrast since his creatinine remains elevated. was made aware of this left upper lobe nodule, clearly at this point the patient is not a candidate for any surgical intervention, and is not a candidate for bronchoscopy and biopsy of this point. Patient was reevaluated today on 07/17/2018, remains in the ICU, patient is doing quite well. He is relatively asymptomatic, remains on few liters nasal cannula , denies any cough or wheezing or shortness of breath. Patient had a CT of the chest abdomen and pelvis, and he was found to have bilateral pleural effusions and compressive atelectasis, possible infiltrates in upper lung carreon. The nodule in the left upper lobe was noted to be calcified, hence makes malignancy less likely. Patient was also noted to have bilateral pleural effusions, and distal thoracic aortic aneurysm at the level of the aortic hiatus, and according to the he always had this aneurysm, and he chose not to have anything done about it. Apparently has been present for quite some time, and he decided to leave it alone. There was also evidence of cholelithiasis without wall thickening. His urine did not show evidence of enterococcus faecalis, it did show evidence of gram-negative bacilli. In the meantime the patient remains on Zosyn and vancomycin as per infectious disease on the case. Patient was reevaluated today on 07/18/2018, presently on overflow in the ICU. Doing fairly well, denies any cough no wheezing, no shortness of breath, no chest pain. Continues to have vague aches and pains especially in the lower extremities. His labs were reviewed, he had a relatively normal CBC and normal metabolic profile. Normal renal profile. Remains on antibiotics for Enterococcus faecalis bacteremia. Being followed by infectious disease on consultation. Patient was reevaluated today on 07/19/2018, doing quite well, relatively asymptomatic, no cough no wheezing or shortness of breath no chest pain no nausea no vomiting no abdominal pain, he has some vague aches and pains in the lower extremities. And some chronic venous stasis changes. Remains on antibiotics for his enterococcal bacteremia, CT of the abdomen and pelvis was nondiagnostic. He was seen by the infectious disease specialist and now he is recommending transesophageal echocardiogram to rule out infective endocarditis. This is yet to be decided upon by cardiology on the case. In the meantime the patient remains on Unasyn 3 g every 6 hours for his enterococcal bacteremia. Objective - Vital Signs Vital signs: Vital Signs Temp 97.5 F L 07/19/18 08:00 Pulse 60 07/19/18 10:00 Resp 12 07/19/18 10:00 BP 133/81 07/19/18 10:00 Pulse Ox 92 L 07/19/18 10:00 Intake & Output 07/18/18 07/19/18 07/19/18 18:59 06:59 18:59 Intake Total 410 300 40 Output Total 730 1400 275 Balance -320 -1100 -235 Weight 123.9 kg 124.6 kg Intake: IV 310 300 40 Ampicillin-Sulbactam 3 gm 100 200 In Sodium Chloride 0.9% 100 ml @ 200 mls/hr IVPB Q6HR [facility] Rx#:[id number] Sodium Chloride 0.9% 1, 210 100 40 000 ml @ 20 mls/hr IV . Q24H [facility] Rx#:[id number] Intake, IV Titration 100 Amount Ampicillin-Sulbactam 3 gm 100 In Sodium Chloride 0.9% 100 ml @ 200 mls/hr IVPB Q6HR [facility] Rx#:[id number] Output: Urine 730 1400 275 Other: Voiding Method Indwelling Catheter Indwelling Catheter Indwelling Catheter - Exam Physical Exam: Revealed 82-year-old white male on 3 l nasal cannula. Head: Atraumatic, normocephalic. HEENT:[Neck is supple.] [No neck masses.] [No thyromegaly.] [No JVD.] Chest: Minimal Crackles and rhonchi no wheezes noted bilaterally symmetrical chest expansion, no chest wall tenderness..] Cardiac Exam: [Irregular irregular rhythm Normal S1 and S2, no S3 gallop, 2/6 systolic murmur thought the precordium. Abdomen: [Obese, Soft, nontender, no megaly, no rebound, no guarding, normal bowel sounds.] Extremities: [No clubbing, trace bipedal edema, chronic hyperpigmentation and venous stasis changes noted in lower extremities bilaterally.. Tenderness over the feet bilaterally especially the left foot.] Neurological Exam: Generally weak, otherwise [No focal neurologic deficit.] Psychiatric: Normal mood, affect, normal mental status today. Lymphatics: No lymphadenopathy. - Labs CBC & Chem 7: 07/19/18 05:04 07/19/18 05:04 Labs: Abnormal Lab Results - Last 24 Hours (Table) 07/18/18 07/18/18 07/19/18 Range/Units 16:38 20:06 05:04 PT (9.0-12.0) sec INR (<1.2) Chloride 97 L (98-107) mmol/L Carbon Dioxide 35 H (22-30) mmol/L Glucose 100 H (74-99) mg/dL POC Glucose (mg/dL) 105 H 109 H (75-99) mg/dL 07/19/18 Range/Units 09:31 PT 48.9 H (9.0-12.0) sec INR 5.1 H* (<1.2) Chloride (98-107) mmol/L Carbon Dioxide (22-30) mmol/L Glucose (74-99) mg/dL POC Glucose (mg/dL) (75-99) mg/dL Microbiology - Last 24 Hours (Table) 07/14/18 18:03 Blood Culture - Preliminary Blood No Growth after 96 hours 07/16/18 15:34 Blood Culture - Preliminary Blood No Growth after 48 hours 07/16/18 14:57 Blood Culture - Preliminary Blood No Growth after 48 hours Assessment and Plan Assessment: Impression: 1 strongly suspect bilateral pneumonia, community-acquired, and sepsis. CT of the chest showed significant improvement, mostly bibasilar atelectasis and calcified left upper lobe nodule. 2 elevated lactic acid secondary to sepsis. 3 brief episode of asystole requiring CPR for few minutes, with spontaneous recovery of pulse and circulation. This happened early this morning around 6: 20 AM while in the ICU, patient was about to be intubated, but was not done. Since the patient responded to CPR only. 4 generalized weakness secondary to sepsis and pneumonia 5 electrolytes imbalance mostly hyponatremia exact etiology is not clear. And hypokalemia 6 chronic atrial fibrillation 7 type 2 diabetes 8 previous CABG 9 history of pacemaker implantation 10 chronic kidney disease stage III. 11 acute hypoxic respiratory failure secondary to COPD and pneumonia. 12 acute exacerbation of COPD. Patient had remote smoking history. 13 elevated troponin, being addressed by cardiology. 14 left upper lobe solitary lung nodule, calcified, no further workup is necessary. 15 bacteremia secondary to Enterococcus faecalis, exact source is not clear, presently on Unasyn, patient is being considered for transesophageal echocardiogram. 16 old descending aortic aneurysm, chose not to have anything done about it in the past. Recommendation: Continue antibiotics for enterococcal bacteremia, agree with plans for ADAIR to rule out endocarditis, continue bronchodilators, continue diuretics, continue Unasyn, continue Coumadin, patient remains as an overflow from [facility], we'll arrange for him to be transferred to [facility] once a bed becomes available. Awaiting to hear from cardiology regarding ADAIR. We'll continue to follow. Time with Patient: Less than 30
[2018-07-19 12:14] LABS: Glucose,Whole Blood 111 mg/dL (75-99)
[2018-07-19] MEDS: WARFARIN 2.5 MG TAB PO SCH (12:16)
[2018-07-19 17:00] LABS: Glucose,Whole Blood 109 mg/dL (75-99)
[2018-07-19 19:46] LABS: Glucose,Whole Blood 125 mg/dL (75-99)
--- NOTE | 2018-07-19 20:45 | PN ---
PROGRESS NOTE DATE OF SERVICE: 07/19/2018 This 82-year-old gentleman who was admitted with bibasilar pneumonia also was found to have possible sepsis. Patient also had acute hypoxic respiratory failure. Patient had elevated lactic acid, sensorium also altered with confusion. No chest pain. No palpitations. PAST MEDICAL HISTORY: Reviewed. REVIEW OF SYSTEMS: Could not be taken, the patient is confused. CURRENT MEDICATIONS: Reviewed and include: 1. [place] 7.5 q.6h p.r.n. 2. DuoNeb q.i.d. and p.r.n. 3. Unasyn 3 g IV q6h. 4. Aspirin 81 mg. 5. Lipitor 10 mg daily. 6. Coreg 12.5 mg b.i.d. 7. Colace 100 mg q.48h hours. 8. NovoLog scale. 9. Magnesium oxide. 10.Aldactone 50 mg p.o. daily. 11.Ultram. 12.Coumadin 2.5 mg, 3.75 mg. PHYSICAL EXAMINATION: The patient is the alert, oriented x2. Pulse 60, blood pressure 120/60, respiration 18, temperature 97.2, pulse ox 98% on 2 L. HEENT: Conjunctivae normal. NECK: No jugular venous distention. CARDIOVASCULAR: S1, S2 muffled. RESPIRATORY: Breath sounds diminished in the bases. Bilateral scattered rhonchi and crackles. ABDOMEN is soft, obese, nontender. LEGS: No edema. No swelling. CENTRAL NERVOUS SYSTEM: Diffusely weak. LABS: WBC 8.2, hemoglobin 15.4. INR is 5.1. ASSESSMENT: 1. Bibasilar pneumonia possibly gram-negative, possibly community-acquired with severe sepsis present on admission with acute hypoxic respiratory failure. 2. Sepsis with Enterococcus faecalis with urine culture showing E coli. 3. Elevated lactic acid secondary to sepsis. 4. Bilateral pleural effusions. 5. Change in mental status, metabolic encephalopathy, acute secondary to sepsis. 6. Increased creatinine with chronic kidney stage III. 7. Congestive heart failure acute exacerbation with acute on chronic systolic dysfunction Ejection fraction 40-45 percent. 8. Hyponatremia. 9. Increased WBC. 10.Torsades meghana pointes cardiac arrest recently in hospital. 11.Hypertension. 12.History of atrial fibrillation with bradycardia history. 13.History of congestive heart failure. 14.Diabetes type 2. 15.History of appendectomy. 16.History of coronary artery disease, coronary artery bypass grafting. 17.History of degenerative joint disease. 18.History of pacemaker. 19.History atrial fibrillation. 20.History of congestive heart failure, systolic dysfunction, ejection fraction 40-45 percent. 21.History of cholelithiasis. 22.FULL CODE. RECOMMENDATIONS AND DISCUSSION: I recommend to continue current medications, continue symptomatic treatment. We will hold the Coumadin. Monitor PT and INR. Continue the rest of the medications. Continue the antibiotics. The rest of the cultures are negative. The prognosis is extremely guarded. Further recommendations to follow. Eventually PT/OT evaluation, possible ECF rehab. Further recommendations to follow. MMBECKYL / IJN: [id number] / IZABELA
[2018-07-20] MEDS: HYDROcodone/APAP 7.5-325MG 1 EACH TAB PO PRN ×4 (00:11→23:28)
[2018-07-20] MEDS: AMPICILLIN-SULBACTAM 3 GM in SODIUM CHLORIDE 0.9% 100 ML IVPB SCH ×5 (00:51→23:29)
[2018-07-20] MEDS: traMADol 50 MG TAB PO PRN ×3 (02:00→19:47)
[2018-07-20] MEDS: SODIUM CHLORIDE 0.9% 1,000 ML IV SCH ×2 (04:29→23:53)
[2018-07-20 05:54] LABS: Glucose,Whole Blood 113 mg/dL (75-99)
[2018-07-20] MEDS: INSULIN ASPART 100 UNIT/ML 1 ML 10 ML VIAL SQ SCH ×4 (06:36→20:30)
[2018-07-20] MEDS: CARVEDILOL 12.5 MG TAB PO SCH ×2 (06:53→18:59)
[2018-07-20 08:28] LABS: Basophils # (A) 0.1 k/uL (0-0.2); Basophils % (A) 1 %; Eosinophils # (A) 0.3 k/uL (0-0.7); Eosinophils % (A) 2 %; HCT 50.6 % (39.0-53.0); HGB 15.2 gm/dL (13.0-17.5); Hypochromasia Slight; Lymphocytes # (A) 1.4 k/uL (1.0-4.8); Lymphocytes % (A) 12 %; MCH 29.7 pg (25.0-35.0); MCHC 30.1 g/dL (31.0-37.0); MCV 98.7 fL (80.0-100.0); Mean Platelet Volume 6.9; Monocytes # (A) 0.6 k/uL (0-1.0); Monocytes % (A) 5 %; Neutrophils # (A) 8.9 k/uL (1.3-7.7); Neutrophils % (A) 76 %; Platelet Count 211 k/uL (150-450); RBC 5.13 m/uL (4.30-5.90); RDW 14.4 % (11.5-15.5); WBC 11.7 k/uL (3.8-10.6)
[2018-07-20 08:38] LABS: INR 3.5 (<1.2); Prothrombin Time 33.3 sec (9.0-12.0)
[2018-07-20 08:40] LABS: Calcium 9.4 mg/dL (8.4-10.2); Potassium 4.2 mmol/L (3.5-5.1)
[2018-07-20] MEDS: IPRATROPIUM-ALBUTEROL 3 ML NEB INHALATION SCH ×4 (09:09→19:59)
[2018-07-20] MEDS: ASPIRIN 81 MG PO SCH (10:03)
[2018-07-20] MEDS: MAGNESIUM OXIDE 400 MG TAB PO SCH (10:03)
[2018-07-20] MEDS: ATORVASTATIN 10 MG TAB PO SCH (10:03)
[2018-07-20 11:19] LABS: Glucose,Whole Blood 126 mg/dL (75-99)
[2018-07-20 16:42] LABS: Glucose,Whole Blood 105 mg/dL (75-99)
--- NOTE | 2018-07-20 17:31 | P.PN ---
Subjective Progress Note Date: 07/19/18 Principal diagnosis: Enterococcus faecalis bacteremia The patient is afebrile, the patient is feeling better, the patient is breathing more comfortably the patient continued to have mild dry cough, patient denies chest pain no nausea no vomiting and no abdominal pain or any diarrhea Objective - Vital Signs Vital signs: Vital Signs Temp 97.5 F L 07/19/18 12:00 Pulse 60 07/19/18 13:00 Resp 19 07/19/18 13:00 BP 115/66 07/19/18 13:00 Pulse Ox 92 L 07/19/18 13:00 Intake & Output 07/18/18 07/19/18 07/19/18 18:59 06:59 18:59 Intake Total 410 300 200 Output Total 730 1400 450 Balance -320 -1100 -250 Weight 123.9 kg 124.6 kg 124.6 kg Intake: IV 310 300 200 Ampicillin-Sulbactam 3 gm 100 200 100 In Sodium Chloride 0.9% 100 ml @ 200 mls/hr IVPB Q6HR [facility] Rx#:[id number] Sodium Chloride 0.9% 1, 210 100 100 000 ml @ 20 mls/hr IV . Q24H [facility] Rx#:[id number] Intake, IV Titration 100 Amount Ampicillin-Sulbactam 3 gm 100 In Sodium Chloride 0.9% 100 ml @ 200 mls/hr IVPB Q6HR [facility] Rx#:[id number] Output: Urine 730 1400 450 Other: Voiding Method Indwelling Catheter Indwelling Catheter Indwelling Catheter - Exam GENERAL DESCRIPTION: Elderly male lying in bed in no distress RESPIRATORY SYSTEM: Unlabored breathing , decreased breath sounds at bases, no wheezes or crackles HEART: S1 S2 regular rate and rhythm ,no loud murmurs ABDOMEN: Soft , no tenderness EXTREMITIES: 2+ edema feet SKIN: Multiple bruises and skin breakdown and no redness - Labs CBC & Chem 7: 07/20/18 07:38 07/20/18 07:38 Labs: Abnormal Lab Results - Last 24 Hours (Table) 07/18/18 07/18/18 07/19/18 Range/Units 16:38 20:06 05:04 PT (9.0-12.0) sec INR (<1.2) Chloride 97 L (98-107) mmol/L Carbon Dioxide 35 H (22-30) mmol/L Glucose 100 H (74-99) mg/dL POC Glucose (mg/dL) 105 H 109 H (75-99) mg/dL 07/19/18 07/19/18 Range/Units 09:31 12:11 PT 48.9 H (9.0-12.0) sec INR 5.1 H* (<1.2) Chloride (98-107) mmol/L Carbon Dioxide (22-30) mmol/L Glucose (74-99) mg/dL POC Glucose (mg/dL) 111 H (75-99) mg/dL Microbiology - Last 24 Hours (Table) 07/14/18 18:03 Blood Culture - Preliminary Blood No Growth after 96 hours 07/16/18 15:34 Blood Culture - Preliminary Blood No Growth after 48 hours 07/16/18 14:57 Blood Culture - Preliminary Blood No Growth after 48 hours Assessment and Plan (1) Bacteremia due to Enterococcus Current Visit: Yes Status: Acute Code(s): R78.81 - BACTEREMIA; B95.2 - ENTEROCOCCUS THE CAUSE OF DISEASES CLASSIFIED ELSEWHERE SNOMED Code(s): 206898257572 Plan: Patient admitted hospital with sepsis in this patient did have a fever of 10 2 F the patient did have elevated white count patient now with evidence of enterococcus bacteremia , the patient UA was not significantly positive and urine cultures currently showing a gram-negative and not enterococcus faecalis the patient did have an ultrasound of the abdominal done raises some abnormality at the right upper quadrant however patient was noticed to have no tenderness in the right upper quadrant area, CT of abdominal pelvis and it shows renal stone but no cholecystitis did have bilateral pleural effusion and some compressive atelectasis versus pneumonia however enterococcus is not a very common cause of pneumonia. Patient will need ADAIR to rule out infective endocarditis , possibly on Saturday follow-up blood culture has been negative patient will continue on Unasyn Time with Patient: Less than 30
--- NOTE | 2018-07-20 17:33 | P.PN ---
Subjective Progress Note Date: 07/20/18 Principal diagnosis: Enterococcus faecalis bacteremia The patient has been moved out of the ICU the patient denies having any fever or any chills patient has been complaining of feeling cold last night however denies having any chest pain shortness of breath or cough but denies any abdominal pain and no nausea no vomiting and no diarrhea Objective - Vital Signs Vital signs: Vital Signs Temp 97.1 F L 07/20/18 08:00 Pulse 64 07/20/18 12:30 Resp 18 07/20/18 11:52 BP 132/71 07/20/18 08:00 Pulse Ox 93 L 07/20/18 08:00 Intake & Output 07/19/18 07/20/18 07/20/18 18:59 06:59 18:59 Intake Total 400 60 Output Total 945 705 200 Balance -545 -645 -200 Weight 124.6 kg 122.7 kg Intake: IV 400 60 Ampicillin-Sulbactam 3 gm 200 In Sodium Chloride 0.9% 100 ml @ 200 mls/hr IVPB Q6HR [facility] Rx#:[id number] Sodium Chloride 0.9% 1, 200 60 000 ml @ 20 mls/hr IV . Q24H [facility] Rx#:[id number] Output: Urine 945 705 200 Other: Voiding Method Indwelling Catheter Urinal Urinal # Voids 1 - Exam GENERAL DESCRIPTION: Elderly male lying in bed in no distress RESPIRATORY SYSTEM: Unlabored breathing , decreased breath sounds at bases, no wheezes or crackles HEART: S1 S2 regular rate and rhythm ,no loud murmurs ABDOMEN: Soft , no tenderness, no organomegaly EXTREMITIES: 2+ edema feet SKIN: Multiple bruises and skin breakdown and no redness - Labs CBC & Chem 7: 07/20/18 07:38 07/20/18 07:38 Labs: Abnormal Lab Results - Last 24 Hours (Table) 07/19/18 07/20/18 07/20/18 Range/Units 19:44 05:53 07:38 WBC 11.7 H (3.8-10.6) k/uL MCHC 30.1 L (31.0-37.0) g/dL Neutrophils # 8.9 H (1.3-7.7) k/uL PT (9.0-12.0) sec INR (<1.2) Chloride (98-107) mmol/L Carbon Dioxide (22-30) mmol/L Glucose (74-99) mg/dL POC Glucose (mg/dL) 125 H 113 H (75-99) mg/dL 07/20/18 07/20/18 07/20/18 Range/Units 07:38 07:38 11:17 WBC (3.8-10.6) k/uL MCHC (31.0-37.0) g/dL Neutrophils # (1.3-7.7) k/uL PT 33.3 H (9.0-12.0) sec INR 3.5 H (<1.2) Chloride 97 L (98-107) mmol/L Carbon Dioxide 34 H (22-30) mmol/L Glucose 102 H (74-99) mg/dL POC Glucose (mg/dL) 126 H (75-99) mg/dL 07/20/18 Range/Units 16:40 WBC (3.8-10.6) k/uL MCHC (31.0-37.0) g/dL Neutrophils # (1.3-7.7) k/uL PT (9.0-12.0) sec INR (<1.2) Chloride (98-107) mmol/L Carbon Dioxide (22-30) mmol/L Glucose (74-99) mg/dL POC Glucose (mg/dL) 105 H (75-99) mg/dL Microbiology - Last 24 Hours (Table) 07/14/18 18:03 Blood Culture - Preliminary Blood No Growth after 120 hours 07/16/18 14:57 Blood Culture - Preliminary Blood No Growth after 72 hours 07/16/18 15:34 Blood Culture - Preliminary Blood No Growth after 72 hours Assessment and Plan (1) Bacteremia due to Enterococcus Current Visit: Yes Status: Acute Code(s): R78.81 - BACTEREMIA; B95.2 - ENTEROCOCCUS THE CAUSE OF DISEASES CLASSIFIED ELSEWHERE SNOMED Code(s): 552106131054 Plan: Patient admitted hospital with sepsis in this patient did have a fever of 10 2 F the patient did have elevated white count patient now with evidence of enterococcus bacteremia , the patient UA was not significantly positive and urine cultures currently showing a gram-negative and not enterococcus faecalis the patient did have an ultrasound of the abdominal done raises some abnormality at the right upper quadrant however patient was noticed to have no tenderness in the right upper quadrant area, CT of abdominal pelvis and it shows renal stone but no cholecystitis did have bilateral pleural effusion and some compressive atelectasis versus pneumonia however enterococcus is not a very common cause of pneumonia. Patient will need ADAIR to rule out infective endocarditis which has been scheduled for tomorrow case was discussed in detail with Dr. VC dorado on the floor , patient follow-up blood culture has been negative currently on Unasyn 3 g every 6 to continue if the ADAIR is negative he will get a midline to finish a total of 2 week course of antibiotic therapy from his negative blood cultures possibly in the rehab setting Time with Patient: Less than 30
[2018-07-20] MEDS: WARFARIN 2.5 MG TAB PO SCH (18:58)
[2018-07-20 20:06] LABS: Glucose,Whole Blood 93 mg/dL (75-99)
[2018-07-20] MEDS: METOPROLOL TARTRATE 5 MG/5 ML VIAL IVP SCH ×2 (20:38→20:39)
[2018-07-20] MEDS: NIACIN TR 500 MG CAPSULE.ER PO SCH (20:40)
[2018-07-21] MEDS: traMADol 50 MG TAB PO PRN ×3 (03:55→23:08)
[2018-07-21 05:35] LABS: Glucose,Whole Blood 82 mg/dL (75-99)
[2018-07-21] MEDS: INSULIN ASPART 100 UNIT/ML 1 ML 10 ML VIAL SQ SCH ×4 (05:37→21:24)
[2018-07-21] MEDS: AMPICILLIN-SULBACTAM 3 GM in SODIUM CHLORIDE 0.9% 100 ML IVPB SCH ×4 (06:04→23:13)
[2018-07-21 07:21] LABS: Basophils # (A) 0.1 k/uL (0-0.2); Basophils % (A) 1 %; Eosinophils # (A) 0.3 k/uL (0-0.7); Eosinophils % (A) 3 %; HCT 47.4 % (39.0-53.0); HGB 14.3 gm/dL (13.0-17.5); Lymphocytes # (A) 1.7 k/uL (1.0-4.8); Lymphocytes % (A) 17 %; MCH 28.9 pg (25.0-35.0); MCHC 30.1 g/dL (31.0-37.0); MCV 95.9 fL (80.0-100.0); Mean Platelet Volume 6.9; Monocytes # (A) 0.4 k/uL (0-1.0); Monocytes % (A) 4 %; Neutrophils # (A) 7.4 k/uL (1.3-7.7); Neutrophils % (A) 71 %; Platelet Count 236 k/uL (150-450); RBC 4.94 m/uL (4.30-5.90); RDW 14.4 % (11.5-15.5); WBC 10.4 k/uL (3.8-10.6)
[2018-07-21 07:27] LABS: Anion Gap 6 mmol/L; Blood Urea Nitrogen 15 mg/dL (9-20); Calcium 9.3 mg/dL (8.4-10.2); Carbon Dioxide 35 mmol/L (22-30); Chloride 97 mmol/L (98-107); Glucose 89 mg/dL (74-99); Magnesium 1.7 mg/dL (1.6-2.3); Potassium 3.7 mmol/L (3.5-5.1); Sodium 138 mmol/L (137-145)
[2018-07-21 07:29] LABS: INR 2.9 (<1.2); Prothrombin Time 28.1 sec (9.0-12.0)
[2018-07-21] MEDS: IPRATROPIUM-ALBUTEROL 3 ML NEB INHALATION SCH ×4 (07:53→20:34)
--- NOTE | 2018-07-21 08:13 | PN ---
PROGRESS NOTE DATE OF SERVICE: 07/20/2018 This 82-year-old gentleman admitted with bibasilar pneumonia continues to be weak and confused. The patient was transferred out of ICU. No chest pain or palpitation. PHYSICAL EXAMINATION: On exam, alert and oriented x1. Pulse 61, blood pressure 168/77, respiration 18, temperature 97.9, pulse ox 94% on 2 L. HEENT: Conjunctivae normal. NECK: No jugular venous distention. CARDIOVASCULAR: S1, S2 muffled. RESPIRATORY: Breath sounds diminished at the bases. Bilateral scattered rhonchi and crackles. ABDOMEN: Soft, obese. LEGS: No edema, no swelling. NERVOUS SYSTEM: Diffusely weak. LABS: INR is still elevated 3.5. WBC 11.7. Other labs are reviewed. ASSESSMENT: 1. Bibasilar pneumonia possibly gram-negative, possibly community acquired with severe sepsis present on admission with acute hypoxic respiratory failure. 2. Sepsis with Enterococcus faecalis with the urine culture showing Escherichia coli. 3. Elevated lactic acid secondary to sepsis. 4. Bilateral pleural effusion. 5. Change in mental status metabolic encephalopathy acute on chronic. 6. Increased creatinine with chronic kidney disease stage III. 7. Congestive heart failure acute exacerbation with acute on chronic systolic dysfunction, ejection fraction 40% to 45%. 8. Hyponatremia. 9. Increased WBC. 10.Torsades de pointes and in-hospital cardiac arrest recently. 11.Hypertension. 12.History of atrial fibrillation with bradycardia history. 13.History of congestive heart failure. 14.Diabetes mellitus type 2. 15.History of appendectomy. 16.History of coronary artery disease, coronary artery bypass grafting. 17.History of degenerative joint disease. 18.Pacemaker. 19.History of atrial fibrillation. 20.History of congestive heart failure with chronic systolic dysfunction ejection fraction 40% to 45%. 21.History of cholelithiasis. 22.FULL CODE. RECOMMENDATIONS AND DISCUSSION: Recommend to continue current medications, continues symptomatic treatment. Continue with broad-spectrum IV antibiotics. Infectious Disease is recommending ADAIR. We will continue to monitor. Closely follow with Cardiology. Otherwise PT, OT evaluation. Eventual ECF rehab. Prognosis extremely guarded because of multiple complex medical issues. Further recommendations to follow. MMODL / IJN: [id number] /
[2018-07-21] MEDS ORDERED: HYDROmorphone 0.5 MG/0.5 ML SYRINGE IVP STA (09:59)
[2018-07-21 11:24] LABS: Glucose,Whole Blood 81 mg/dL (75-99)
[2018-07-21] MEDS: SODIUM CHLORIDE 0.9% 1,000 ML IV SCH (12:02)
[2018-07-21] MEDS ORDERED: fentaNYL (PF) 50 MCG/ML 2 ML AMP ONE (12:15)
[2018-07-21] MEDS ORDERED: BENZOCAINE SPRAY 1 CAN MUCOUS MEM ONE ×2 (12:30→12:35)
[2018-07-21] MEDS ORDERED: MIDAZOLAM 2 MG/2 ML VIAL IVP ONE (12:34)
[2018-07-21] MEDS ORDERED: fentaNYL (PF) 50 MCG/ML 2 ML AMP IVP ONE (12:35)
[2018-07-21] MEDS ORDERED: IV FLUID CONTINUATION 1,000 ML IV ONE (12:36)
[2018-07-21] MEDS: CARVEDILOL 12.5 MG TAB PO SCH ×2 (14:02→15:02)
--- NOTE | 2018-07-21 14:02 | ECHOT ---
TRANSESOPHAGEAL ECHOCARDIOGRAM This patient is advised transesophageal echocardiogram to rule out endocarditis. Patient has a persistent bacteremia with Enterobacter faecalis. The patient was given Versed and fentanyl and transesophageal echocardiogram was performed without any complications. Left ventricular chamber is normal in size with normal left ventricular systolic functions. Mitral valve morphology is normal. Tricuspid valve morphology is normal. Aortic valve is mildly thickened. There is no definite evidence of any vegetations. There is a mild mitral regurgitation noted. Pacemaker wire was visualized and it appears normal. I do not see any unusual echogenic mass on the pacemaker electrode. FINAL IMPRESSION: There is no definite evidence of vegetations on mitral aortic or tricuspid valve. Pacemaker wire appears normal. I do not see any echogenic mass on the pacemaker electrode. There is mild mitral regurgitation is noted. Interatrial septum is intact. There is a lipomatous hypertrophy of the interatrial septum and mild mitral regurgitation is noted. MMODL / IJN: [id number] /
[2018-07-21] MEDS: MAGNESIUM OXIDE 400 MG TAB PO SCH (15:02)
[2018-07-21] MEDS: ASPIRIN 81 MG PO SCH (15:02)
[2018-07-21] MEDS: SPIRONOLACTONE 25 MG TAB PO SCH (15:02)
[2018-07-21] MEDS: ATORVASTATIN 10 MG TAB PO SCH (15:02)
--- NOTE | 2018-07-21 15:31 | P.PN ---
Subjective Progress Note Date: 07/21/18 Principal diagnosis: Acute community acquired pneumonia and enterococcal bacteremia and sepsis This is an 82-year-old white male with history of multiple medical problems including chronic atrial fibrillation, congestive heart failure, COPD, hypertension, hyperlipidemia, coronary artery disease and previous CABG. [facility], however this time he was brought in by his daughter who lives with the patient, and she has been noticing that the patient is getting generally weak, unable to get up from the bed to walk although he does have a walker and sometimes he uses an electric wheelchair. Upon evaluation in the ER, the patient was noted to be dehydrated, his lactic acid was also noted to be elevated, and a chest x-ray was done which I reviewed myself, suspicious for infiltrate in the right perihilar area and possibly in the left lower lobe. Patient had a temp of 102 on admission, hence he was started on IV antibiotics, bronchodilators, and this consult was initiated. Patient was also started back on his usual cardiac meds including Coumadin. The patient himself is a very poor historian, when asked about his symptoms, patient suggested that he call his . Patient was reevaluated today on 07/15/2018, remains in the ICU, hemodynamically stable, improved from the pulmonary perspective, however he is still requires about 5 L nasal cannula to maintain adequate saturation. Patient is refusing labs to be drawn today, he is also refusing to have a chest x-ray done. Insisting that he wouldn't have any of this done on to his shows up later today. His WBC count today is 11.7, hemoglobin 16.4. Electrolytes were noted to be abnormal with low potassium of 3.2. His BUN is 25 creatinine is 1.27. His creatinine yesterday was 1.09. Patient agreed to have the labs drawn, but refuses to have a chest x-ray done. Hence we'll delay the chest x-ray until tomorrow. Patient was reevaluated today on 07/16/2018, remains in the ICU, feeling much per her today, breathing a lot easier, remains on 2 L nasal cannula, O2 saturation is adequate. Patient seems to be agreeable today to have blood drawn and x-ray done, his is sitting at bedside. He did well have one episode of cough earlier today, and his sputum was blood tinged. Patient is on anticoagulation therapy. INR today is 2.1, PTT is 63.4. Electrolytes are normal except for slightly low potassium of 3.4, creatinine is 1.28, basically about the same over the last couple of days. Chest x-ray this morning continues to show cardiomegaly, patchy bibasilar opacities, consistent with pneumonia, however the possibility of pulmonary edema is not entirely ruled out. The left upper lobe nodule remains exactly the same, this will need eventual workup on outpatient basis and CT of the chest with contrast. His renal functioning today will prohibit doing a CT of the chest with contrast since his creatinine remains elevated. was made aware of this left upper lobe nodule, clearly at this point the patient is not a candidate for any surgical intervention, and is not a candidate for bronchoscopy and biopsy of this point. Patient was reevaluated today on 07/17/2018, remains in the ICU, patient is doing quite well. He is relatively asymptomatic, remains on few liters nasal cannula , denies any cough or wheezing or shortness of breath. Patient had a CT of the chest abdomen and pelvis, and he was found to have bilateral pleural effusions and compressive atelectasis, possible infiltrates in upper lung carreon. The nodule in the left upper lobe was noted to be calcified, hence makes malignancy less likely. Patient was also noted to have bilateral pleural effusions, and distal thoracic aortic aneurysm at the level of the aortic hiatus, and according to the he always had this aneurysm, and he chose not to have anything done about it. Apparently has been present for quite some time, and he decided to leave it alone. There was also evidence of cholelithiasis without wall thickening. His urine did not show evidence of enterococcus faecalis, it did show evidence of gram-negative bacilli. In the meantime the patient remains on Zosyn and vancomycin as per infectious disease on the case. Patient was reevaluated today on 07/18/2018, presently on overflow in the ICU. Doing fairly well, denies any cough no wheezing, no shortness of breath, no chest pain. Continues to have vague aches and pains especially in the lower extremities. His labs were reviewed, he had a relatively normal CBC and normal metabolic profile. Normal renal profile. Remains on antibiotics for Enterococcus faecalis bacteremia. Being followed by infectious disease on consultation. Patient was reevaluated today on 07/19/2018, doing quite well, relatively asymptomatic, no cough no wheezing or shortness of breath no chest pain no nausea no vomiting no abdominal pain, he has some vague aches and pains in the lower extremities. And some chronic venous stasis changes. Remains on antibiotics for his enterococcal bacteremia, CT of the abdomen and pelvis was nondiagnostic. He was seen by the infectious disease specialist and now he is recommending transesophageal echocardiogram to rule out infective endocarditis. This is yet to be decided upon by cardiology on the case. In the meantime the patient remains on Unasyn 3 g every 6 hours for his enterococcal bacteremia. On 07/21/2018 patient seen again in follow-up on selective care unit, he just had gotten back from his transesophageal echocardiogram, currently is still sedated, resting in bed, in no distress, room air pulse ox is 98%, he is afebrile. Lung sounds are still quite congested, positive for scattered rhonchi , ADAIR results showed no definite evidence of vegetations on mitral, aortic or tricuspid valve. No evidence of echogenic mass on the pacemaker electrodes, mild mitral regurgitation was noted. Internal arterial septum was intact. No new chest x-ray, it is labs have been reviewed, showed a PVC is 10.4, hemoglobin is 14.3, INR is 2.9, sodium is 138, potassium is 3.7, chloride is 97 , CO2 is 35, BUN was 15, creatinine 0.85. Follow blood cultures have been negative. Blood cultures from the 07/14/2018 were positive for Enterococcus faecalis, current antibiotic coverage is with Unasyn, ID service is following. Objective - Vital Signs Vital signs: Vital Signs Temp 97.5 F L 07/21/18 15:20 Pulse 129 H 07/21/18 15:20 Resp 19 07/21/18 15:20 BP 106/72 07/21/18 15:20 Pulse Ox 98 07/21/18 15:20 Intake & Output 07/20/18 07/21/18 07/21/18 18:59 06:59 18:59 Intake Total 310 Output Total 200 1100 350 Balance -200 -1100 -40 Weight 122.6 kg Intake: IV 310 Ampicillin-Sulbactam 3 gm 100 In Sodium Chloride 0.9% 100 ml @ 200 mls/hr IVPB Q6HR [facility] Rx#:[id number] Sodium Chloride 0.9% 1, 160 000 ml @ 20 mls/hr IV . Q24H [facility] Rx#:[id number] Output: Urine 200 1100 350 Other: Voiding Method Urinal Urinal Urinal # Voids 2 - Exam Physical Exam: Revealed 82-year-old white male on 3 l nasal cannula. Currently sedated, just gotten back from his ADAIR Head: Atraumatic, normocephalic. HEENT:[Neck is supple.] [No neck masses.] [No thyromegaly.] [No JVD.] Chest: Coarse rhonchi Cardiac Exam: [Irregular irregular rhythm Normal S1 and S2, no S3 gallop, 2/6 systolic murmur thought the precordium. Abdomen: [Obese, Soft, nontender, no megaly, no rebound, no guarding, normal bowel sounds.] Extremities: [No clubbing, trace bipedal edema, chronic hyperpigmentation and venous stasis changes noted in lower extremities bilaterally.. Tenderness over the feet bilaterally especially the left foot.] Neurological Exam: Generally weak, otherwise [No focal neurologic deficit.] Psychiatric: Normal mood, affect, normal mental status today. Lymphatics: No lymphadenopathy. - Labs CBC & Chem 7: 07/21/18 06:58 07/21/18 06:58 Labs: Abnormal Lab Results - Last 24 Hours (Table) 07/20/18 07/21/18 07/21/18 Range/Units 16:40 06:58 06:58 MCHC 30.1 L (31.0-37.0) g/dL PT 28.1 H (9.0-12.0) sec INR 2.9 H (<1.2) Chloride (98-107) mmol/L Carbon Dioxide (22-30) mmol/L POC Glucose (mg/dL) 105 H (75-99) mg/dL 07/21/18 Range/Units 06:58 MCHC (31.0-37.0) g/dL PT (9.0-12.0) sec INR (<1.2) Chloride 97 L (98-107) mmol/L Carbon Dioxide 35 H (22-30) mmol/L POC Glucose (mg/dL) (75-99) mg/dL Microbiology - Last 24 Hours (Table) 07/14/18 18:03 Blood Culture - Final Blood No Growth after 144 hours 07/16/18 15:34 Blood Culture - Preliminary Blood No Growth after 96 hours 07/16/18 14:57 Blood Culture - Preliminary Blood No Growth after 96 hours Assessment and Plan Plan: 1 strongly suspect bilateral pneumonia, community-acquired, and sepsis. CT of the chest showed significant improvement, mostly bibasilar atelectasis and calcified left upper lobe nodule. 2 elevated lactic acid secondary to sepsis. 3 brief episode of asystole requiring CPR for few minutes, with spontaneous recovery of pulse and circulation. This happened early this morning around 6: 20 AM while in the ICU, patient was about to be intubated, but was not done. Since the patient responded to CPR only. 4 generalized weakness secondary to sepsis and pneumonia 5 electrolytes imbalance mostly hyponatremia exact etiology is not clear. And hypokalemia 6 chronic atrial fibrillation 7 type 2 diabetes 8 previous CABG 9 history of pacemaker implantation 10 chronic kidney disease stage III. 11 acute hypoxic respiratory failure secondary to COPD and pneumonia. 12 acute exacerbation of COPD. Patient had remote smoking history. 13 elevated troponin, being addressed by cardiology. 14 left upper lobe solitary lung nodule, calcified, no further workup is necessary. 15 bacteremia secondary to Enterococcus faecalis, exact source is not clear, presently on Unasyn, patient is being considered for transesophageal echocardiogram. 16 old descending aortic aneurysm, chose not to have anything done about it in the past. Plan: Antibiotics per ID service recommendation, ADAIR did not show any evidence of vegetation on any of the valves, or the pacemaker electrodes. Follow blood cultures are negative, room air pulse ox is 98%, no fever or chills. Repeat chest x-ray in the morning. We'll continue to follow I performed a history & physical examination of the patient and discussed their management with my nurse practitioner, Mi Kenyon. I reviewed the nurse practitioner's note and agree with the documented findings and plan of care. Lung sounds are positive for scattered rhonchi. The findings and the impression was discussed with the patient. I attest to the documentation by the nurse practitioner. Time with Patient: Less than 30
[2018-07-21 16:02] LABS: Glucose,Whole Blood 85 mg/dL (75-99)
[2018-07-21] MEDS: WARFARIN 2.5 MG TAB PO SCH (17:12)
[2018-07-21] MEDS: DOCUSATE 100 MG CAP PO SCH (17:12)
[2018-07-21] MEDS: HYDROcodone/APAP 7.5-325MG 1 EACH TAB PO PRN (18:29)
--- NOTE | 2018-07-21 20:31 | PN ---
PROGRESS NOTE DATE OF SERVICE: 07/21/2018 This 82-year-old gentleman who was admitted with bibasilar pneumonia also had sepsis, Enterococcus faecalis. The patient underwent a ADAIR today because to rule out the possibility of infective endocarditis as a possibility of source for the infection. There is no evidence of vegetation was noted. Pacemaker wire was normal. Mild mitral regurgitation was noted. Septum was intact. No chest pain. No palpitations. PHYSICAL EXAMINATION: Patient continues to be confused. Pulse is 60, blood pressure 160/70, respirations 16, temperature 97.7, pulse ox is 98% on 2 L. HEENT: Conjunctivae normal. NECK: No jugular venous distention. CARDIOVASCULAR: S1, S2 muffled. RESPIRATIONS: Breath sounds diminished in the bases. A few scattered rhonchi. ABDOMEN is soft, nontender. LEGS: No edema. No swelling. CENTRAL NERVOUS SYSTEM: no focal deficits. LABS: WBC 10.2, hemoglobin 14.8, INR is 2.9. ASSESSMENT: 1. Bibasilar pneumonia possibly gram-negative with possibly community acquired with severe sepsis present on admission with acute hypoxic respiratory failure. 2. Sepsis with Enterococcus faecalis with urine culture showed E coli. 3. Elevated lactic acid secondary to sepsis. 4. Bilateral pleural effusion. 5. Change in mental status with metabolic encephalopathy, acute on chronic. 6. Increased creatinine with chronic kidney stage III. 7. Congestive heart failure with acute on chronic systolic dysfunction with congestive heart failure acute exacerbation. Ejection fraction of 40-45 percent. 8. Hyponatremia. 9. Increased WBC. 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 11.Hypertension. 12.History atrial fibrillation and bradycardia history. 13.History of congestive heart failure. 14.Diabetes mellitus type 2. 15.History of appendectomy. 16.History of coronary artery disease, coronary artery bypass grafting. 17.History of degenerative joint disease. 18.History of pacemaker. 19.History of atrial fibrillation. 20.History of congestive heart failure with chronic systolic dysfunction ejection fraction 40-45 percent. 21.History of cholelithiasis. 22.FULL CODE. RECOMMENDATIONS AND DISCUSSION: Recommend to continue current medications, management and symptomatic treatment. Otherwise, at this time, we will monitor the patient closely. Otherwise, I would recommend continue the antibiotics. Continue the rest of medications, PT/OT evaluation, possible ECF rehab. Further recommendations to follow. MMODL / IJN: [id number] /
[2018-07-21 21:19] LABS: Glucose,Whole Blood 93 mg/dL (75-99)
--- NOTE | 2018-07-21 22:52 | PN ---
PROGRESS NOTE DATE OF SERVICE: 05/21/2019. REASON FOR FOLLOW UP: Enterococcus faecalis bacteremia. INTERVAL HISTORY: The patient is currently afebrile, has been breathing comfortably. The patient did have a ADAIR done this morning. No evidence of any vegetation. The patient tolerated the procedure. No nausea or vomiting. No abdominal pain, no diarrhea. PHYSICAL EXAMINATION: Blood pressure 130/52 with a pulse of 59, temperature 97.9, he is 95% on 2 L nasal cannula. GENERAL DESCRIPTION: An elderly male lying in bed in no distress. RESPIRATORY SYSTEM: Unlabored breathing. Clear to auscultation anteriorly. HEART: S1, S2. Regular rate and rhythm. ABDOMEN: Soft, no tenderness. LABS: Hemoglobin is 14.8, white count 10.4 with a BUN of 15, creatinine 0.85. DIAGNOSTIC IMPRESSION AND PLAN: Patient with enterococcus bacteremia. The patient did have possible GI source. He did have extensive workup but no evidence of any abscess or vegetation. The patient is on Unasyn, will give another 8 to 10 days of IV ampicillin to finish his course of therapy. Continue supportive care. MMODL / IJN: [id number] /
[2018-07-22] MEDS: HYDROcodone/APAP 7.5-325MG 1 EACH TAB PO PRN ×4 (00:39→19:21)
[2018-07-22] MEDS: AMPICILLIN-SULBACTAM 3 GM in SODIUM CHLORIDE 0.9% 100 ML IVPB SCH ×3 (05:36→18:10)
[2018-07-22 05:43] LABS: Glucose,Whole Blood 74 mg/dL (75-99)
[2018-07-22] MEDS: INSULIN ASPART 100 UNIT/ML 1 ML 10 ML VIAL SQ SCH ×4 (05:56→21:15)
[2018-07-22] MEDS: CARVEDILOL 12.5 MG TAB PO SCH ×2 (06:25→18:11)
[2018-07-22 08:17] LABS: Basophils # (A) 0.1 k/uL (0-0.2); Basophils % (A) 1 %; Eosinophils # (A) 0.3 k/uL (0-0.7); Eosinophils % (A) 2 %; HCT 46.2 % (39.0-53.0); HGB 14.9 gm/dL (13.0-17.5); Lymphocytes # (A) 1.8 k/uL (1.0-4.8); Lymphocytes % (A) 17 %; MCH 30.7 pg (25.0-35.0); MCHC 32.2 g/dL (31.0-37.0); MCV 95.5 fL (80.0-100.0); Mean Platelet Volume 7.2; Monocytes # (A) 0.5 k/uL (0-1.0); Monocytes % (A) 4 %; Neutrophils # (A) 7.7 k/uL (1.3-7.7); Neutrophils % (A) 73 %; Platelet Count 210 k/uL (150-450); RBC 4.84 m/uL (4.30-5.90); RDW 14.5 % (11.5-15.5); WBC 10.5 k/uL (3.8-10.6)
[2018-07-22 08:20] LABS: Anion Gap 7 mmol/L; Blood Urea Nitrogen 15 mg/dL (9-20); Calcium 9.2 mg/dL (8.4-10.2); Carbon Dioxide 30 mmol/L (22-30); Chloride 99 mmol/L (98-107); Glucose 84 mg/dL (74-99); Sodium 136 mmol/L (137-145)
[2018-07-22 08:21] LABS: INR 3.9 (<1.2); Prothrombin Time 37.2 sec (9.0-12.0)
[2018-07-22] MEDS: SPIRONOLACTONE 25 MG TAB PO SCH (08:35)
[2018-07-22] MEDS: MAGNESIUM OXIDE 400 MG TAB PO SCH (08:35)
[2018-07-22] MEDS: ASPIRIN 81 MG PO SCH (08:35)
[2018-07-22] MEDS: ATORVASTATIN 10 MG TAB PO SCH (08:35)
[2018-07-22] MEDS: traMADol 50 MG TAB PO PRN ×2 (08:35→22:21)
[2018-07-22] MEDS: IPRATROPIUM-ALBUTEROL 3 ML NEB INHALATION SCH ×4 (10:01→21:18)
[2018-07-22] MEDS: LIDOCAINE 2% GEL 30 ML TUBE TOPICAL SCH ×2 (10:04→19:21)
--- NOTE | 2018-07-22 10:11 | XR ---
EXAMINATION TYPE: XR chest 1V portable DATE OF EXAM: 07/22/2018 Comparison: 07/16/2018 Clinical History: 82-year-old male shortness of breath Findings: Median sternotomy wires are present. Left anterior chest wall pacemaker generator with a right ventri cular lead. The exam is underpenetrated. Left base underpenetrated and not well assessed. Heart remai ns mildly enlarged. The previous questioned left upper lobe nodule is not well seen currently. There is leftward patient rotation altering the normal contours. Diffuse interstitial prominence. This seem s to be some improvement in the previous right basilar opacity. Impression: COPD and cardiomegaly with rotated exam. Improving aeration at the right base. Residual pulmonary vas cular congestion. The previously seen left midlung nodule is obscured due to patient rotation. Left b ase underpenetrated and not well assessed, suspect underlying effusion with atelectasis and/or consol idation.
[2018-07-22 11:53] LABS: Glucose,Whole Blood 105 mg/dL (75-99)
[2018-07-22 16:37] LABS: Glucose,Whole Blood 81 mg/dL (75-99)
--- NOTE | 2018-07-22 17:02 | P.PN ---
Subjective Progress Note Date: 07/22/18 Principal diagnosis: Acute community-acquired pneumonia and enterococcus bacteremia and sepsis This is an 82-year-old white male with history of multiple medical problems including chronic atrial fibrillation, congestive heart failure, COPD, hypertension, hyperlipidemia, coronary artery disease and previous CABG. [facility] however this time he was brought in by his daughter who lives with the patient, and she has been noticing that the patient is getting generally weak, unable to get up from the bed to walk although he does have a walker and sometimes he uses an electric wheelchair. Upon evaluation in the ER, the patient was noted to be dehydrated, his lactic acid was also noted to be elevated, and a chest x-ray was done which I reviewed myself, suspicious for infiltrate in the right perihilar area and possibly in the left lower lobe. Patient had a temp of 102 on admission, hence he was started on IV antibiotics, bronchodilators, and this consult was initiated. Patient was also started back on his usual cardiac meds including Coumadin. The patient himself is a very poor historian, when asked about his symptoms, patient suggested that he call his . Patient was reevaluated today on 07/15/2018, remains in the ICU, hemodynamically stable, improved from the pulmonary perspective, however he is still requires about 5 L nasal cannula to maintain adequate saturation. Patient is refusing labs to be drawn today, he is also refusing to have a chest x-ray done. Insisting that he wouldn't have any of this done on to his shows up later today. His WBC count today is 11.7, hemoglobin 16.4. Electrolytes were noted to be abnormal with low potassium of 3.2. His BUN is 25 creatinine is 1.27. His creatinine yesterday was 1.09. Patient agreed to have the labs drawn, but refuses to have a chest x-ray done. Hence we'll delay the chest x-ray until tomorrow. Patient was reevaluated today on 07/16/2018, remains in the ICU, feeling much per her today, breathing a lot easier, remains on 2 L nasal cannula, O2 saturation is adequate. Patient seems to be agreeable today to have blood drawn and x-ray done, his is sitting at bedside. He did well have one episode of cough earlier today, and his sputum was blood tinged. Patient is on anticoagulation therapy. INR today is 2.1, PTT is 63.4. Electrolytes are normal except for slightly low potassium of 3.4, creatinine is 1.28, basically about the same over the last couple of days. Chest x-ray this morning continues to show cardiomegaly, patchy bibasilar opacities, consistent with pneumonia, however the possibility of pulmonary edema is not entirely ruled out. The left upper lobe nodule remains exactly the same, this will need eventual workup on outpatient basis and CT of the chest with contrast. His renal functioning today will prohibit doing a CT of the chest with contrast since his creatinine remains elevated. was made aware of this left upper lobe nodule, clearly at this point the patient is not a candidate for any surgical intervention, and is not a candidate for bronchoscopy and biopsy of this point. Patient was reevaluated today on 07/17/2018, remains in the ICU, patient is doing quite well. He is relatively asymptomatic, remains on few liters nasal cannula , denies any cough or wheezing or shortness of breath. Patient had a CT of the chest abdomen and pelvis, and he was found to have bilateral pleural effusions and compressive atelectasis, possible infiltrates in upper lung carreon. The nodule in the left upper lobe was noted to be calcified, hence makes malignancy less likely. Patient was also noted to have bilateral pleural effusions, and distal thoracic aortic aneurysm at the level of the aortic hiatus, and according to the he always had this aneurysm, and he chose not to have anything done about it. Apparently has been present for quite some time, and he decided to leave it alone. There was also evidence of cholelithiasis without wall thickening. His urine did not show evidence of enterococcus faecalis, it did show evidence of gram-negative bacilli. In the meantime the patient remains on Zosyn and vancomycin as per infectious disease on the case. Patient was reevaluated today on 07/18/2018, presently on overflow in the ICU. Doing fairly well, denies any cough no wheezing, no shortness of breath, no chest pain. Continues to have vague aches and pains especially in the lower extremities. His labs were reviewed, he had a relatively normal CBC and normal metabolic profile. Normal renal profile. Remains on antibiotics for Enterococcus faecalis bacteremia. Being followed by infectious disease on consultation. Patient was reevaluated today on 07/19/2018, doing quite well, relatively asymptomatic, no cough no wheezing or shortness of breath no chest pain no nausea no vomiting no abdominal pain, he has some vague aches and pains in the lower extremities. And some chronic venous stasis changes. Remains on antibiotics for his enterococcal bacteremia, CT of the abdomen and pelvis was nondiagnostic. He was seen by the infectious disease specialist and now he is recommending transesophageal echocardiogram to rule out infective endocarditis. This is yet to be decided upon by cardiology on the case. In the meantime the patient remains on Unasyn 3 g every 6 hours for his enterococcal bacteremia. On 07/21/2018 patient seen again in follow-up on selective care unit, he just had gotten back from his transesophageal echocardiogram, currently is still sedated, resting in bed, in no distress, room air pulse ox is 98%, he is afebrile. Lung sounds are still quite congested, positive for scattered rhonchi , ADAIR results showed no definite evidence of vegetations on mitral, aortic or tricuspid valve. No evidence of echogenic mass on the pacemaker electrodes, mild mitral regurgitation was noted. Internal arterial septum was intact. No new chest x-ray, it is labs have been reviewed, showed a PVC is 10.4, hemoglobin is 14.3, INR is 2.9, sodium is 138, potassium is 3.7, chloride is 97 , CO2 is 35, BUN was 15, creatinine 0.85. Follow blood cultures have been negative. Blood cultures from the 07/14/2018 were positive for Enterococcus faecalis, current antibiotic coverage is with Unasyn, ID service is following. The patient is seen today 07/22/2017 in follow-up on the selective care unit. He is currently resting quite comfortably in bed. He is awake and alert in no acute distress. He states he is not back to his baseline as far as his breathing is concerned. ADAIR revealed no evidence of vegetation. He is maintaining O2 saturations in the low 90s on 2 L/m per nasal cannula. He is afebrile. Hemodynamically stable. As x-ray continues to show evidence of COPD and cardiomegaly. There is improved aeration in the right base. Follow up blood cultures reveal no growth. Sputum culture reveals no growth. White count 10.5. Hemoglobin 14.9. INR 3.9. Creatinine 0.8. He remains on Unasyn. Objective - Vital Signs Vital signs: Vital Signs Temp 97.5 F L 07/22/18 11:23 Pulse 60 07/22/18 13:38 Resp 18 07/22/18 11:23 BP 133/67 07/22/18 11:23 Pulse Ox 92 L 07/22/18 11:23 Intake & Output 07/21/18 07/22/18 07/22/18 18:59 06:59 18:59 Intake Total 310 100 Output Total 589 439 2320 Balance -190 625 -900 Weight 122.5 kg Intake: IV 310 100 Ampicillin-Sulbactam 3 gm 100 100 In Sodium Chloride 0.9% 100 ml @ 200 mls/hr IVPB Q6HR [facility] Rx#:[id number] Sodium Chloride 0.9% 1, 160 000 ml @ 20 mls/hr IV . Q24H [facility] Rx#:[id number] Output: Urine 312 [id number] Other: Voiding Method Urinal Urinal Urinal - Exam GENERAL EXAM: Morbidly obese. Disheveled. Alert, comfortable in no apparent distress. HEAD: Normocephalic. EYES: Normal reaction of pupils, equal size. NOSE: Clear with pink turbinates. THROAT: Crowding the posterior pharynx. No erythema or exudates. NECK: No masses, no JVD. CHEST: No chest wall deformity. LUNGS: Equal air entry with crackles in the posterior bases, diminished. CVS: S1 and S2 normal with no audible murmur, regular rhythm. ABDOMEN: No hepatosplenomegaly, normal bowel sounds, no guarding or rigidity. SPINE: No scoliosis or deformity SKIN: Changes of chronic venous stasis of the lower extremities. CENTRAL NERVOUS SYSTEM: No focal deficits, tone is normal in all 4 extremities. EXTREMITIES: There is 1-2+ peripheral edema. No clubbing, no cyanosis. Peripheral pulses are intact. - Labs CBC & Chem 7: 07/22/18 07:41 07/22/18 07:41 Labs: Abnormal Lab Results - Last 24 Hours (Table) 07/22/18 07/22/18 07/22/18 Range/Units 05:40 07:41 07:41 PT 37.2 H (9.0-12.0) sec INR 3.9 H (<1.2) Sodium 136 L (137-145) mmol/L POC Glucose (mg/dL) 74 L (75-99) mg/dL 07/22/18 Range/Units 11:50 PT (9.0-12.0) sec INR (<1.2) Sodium (137-145) mmol/L POC Glucose (mg/dL) 105 H (75-99) mg/dL Microbiology - Last 24 Hours (Table) 07/16/18 15:34 Blood Culture - Preliminary Blood No Growth after 120 hours 07/16/18 14:57 Blood Culture - Preliminary Blood No Growth after 120 hours Assessment and Plan Assessment: Impression: Plan: 1 strongly suspect bilateral pneumonia, community-acquired, and sepsis. CT of the chest showed significant improvement, mostly bibasilar atelectasis and calcified left upper lobe nodule. 2 elevated lactic acid secondary to sepsis. 3 brief episode of asystole requiring CPR for few minutes, with spontaneous recovery of pulse and circulation. This happened early this morning around 6: 20 AM while in the ICU, patient was about to be intubated, but was not done. Since the patient responded to CPR only. 4 generalized weakness secondary to sepsis and pneumonia 5 electrolytes imbalance mostly hyponatremia exact etiology is not clear. And hypokalemia 6 chronic atrial fibrillation 7 type 2 diabetes 8 previous CABG 9 history of pacemaker implantation 10 chronic kidney disease stage III. 11 acute hypoxic respiratory failure secondary to COPD and pneumonia. 12 acute exacerbation of COPD. Patient had remote smoking history. 13 elevated troponin, being addressed by cardiology. 14 left upper lobe solitary lung nodule, calcified, no further workup is necessary. 15 bacteremia secondary to Enterococcus faecalis, exact source is not clear, presently on Unasyn, patient is being considered for transesophageal echocardiogram. 16 old descending aortic aneurysm, chose not to have anything done about it in the past. Plan: The patient was seen and evaluated by Dr. Link. Chest x-ray and labs were reviewed. He is improved from the pulmonary standpoint. We'll continue with his current medications. Antibiotics per infectious disease. Currently on Unasyn. We'll continue to follow. I, the cosigning physician, performed a history & physical examination of the patient. Lungs sounds crackles in the bilateral posterior bases. Maintaining good O2 saturations in the 90s on 2 L/m per nasal cannula. I discussed the assessment and plan of care with my nurse practitioner, Fadumo Mcdaniel. I attest to the above note as dictated by her.
[2018-07-22] MEDS: WARFARIN 2.5 MG TAB PO SCH (18:11)
[2018-07-22] MEDS ORDERED: Magnesium Replacement Protocol 1 EACH MISC MISCELLANE PRN (18:25)
[2018-07-22 21:00] LABS: Glucose,Whole Blood 84 mg/dL (75-99)
[2018-07-22] MEDS: SODIUM CHLORIDE 0.9% 1,000 ML IV SCH (22:34)
[2018-07-23] MEDS ORDERED: HYDROcodone/APAP 7.5-325MG 1 EACH TAB ONE (03:00)
--- NOTE | 2018-07-23 03:12 | PN ---
PROGRESS NOTE DATE OF SERVICE: 07/22/2018 REASON FOR FOLLOWUP: Enterococcus faecalis bacteremia. INTERVAL HISTORY: The patient is currently afebrile. He is breathing comfortably. The patient denies having any chest pain or shortness of breath. Occasional cough. No abdominal pain. No diarrhea. PHYSICAL EXAMINATION: Blood pressure 152/83 with a pulse of 60, temperature 97.5. He is 91% on 2 L nasal cannula. General description is an elderly male lying in bed in no distress. RESPIRATORY SYSTEM: Unlabored breathing. Clear to auscultation anteriorly. HEART: S1, S2. Regular rate and rhythm. ABDOMEN: Soft. No tenderness. LABS: Hemoglobin is 14.9, white count 10.5, BUN of 15, creatinine 0.80. DIAGNOSTIC IMPRESSION AND PLAN: Patient with Enterococcus faecalis bacteremia. Did have extensive workup. Those have been negative. Patient is currently on Unasyn and currently has been transitioned to amoxicillin 2 grams q.6 for another week, or switch over to daptomycin 6 mg/kg for a week, as the patient is insisting on going home rather than to a half-way and hence will have home IV antibiotic coverage per the counter caser. Continue with supportive care. MMODL / IJN: [id number] /
[2018-07-23] MEDS: AMPICILLIN-SULBACTAM 3 GM in SODIUM CHLORIDE 0.9% 100 ML IVPB SCH ×5 (04:56→23:10)
[2018-07-23] MEDS: INSULIN ASPART 100 UNIT/ML 1 ML 10 ML VIAL SQ SCH ×4 (06:05→20:51)
[2018-07-23] MEDS: traMADol 50 MG TAB PO PRN (06:20)
[2018-07-23] MEDS: CARVEDILOL 12.5 MG TAB PO SCH ×2 (06:20→17:57)
[2018-07-23 06:28] LABS: Glucose,Whole Blood 92 mg/dL (75-99)
[2018-07-23 06:38] LABS: HCT 48.4 % (39.0-53.0); HGB 15.4 gm/dL (13.0-17.5); MCH 30.3 pg (25.0-35.0); MCHC 31.8 g/dL (31.0-37.0); MCV 95.4 fL (80.0-100.0); Mean Platelet Volume 7.2; Platelet Count 239 k/uL (150-450); RBC 5.07 m/uL (4.30-5.90); RDW 14.6 % (11.5-15.5); WBC 8.9 k/uL (3.8-10.6)
[2018-07-23 06:47] LABS: INR 4.5 (<1.2); Prothrombin Time 43.3 sec (9.0-12.0)
[2018-07-23 06:52] LABS: Anion Gap 7 mmol/L; Blood Urea Nitrogen 15 mg/dL (9-20); Calcium 9.4 mg/dL (8.4-10.2); Carbon Dioxide 31 mmol/L (22-30); Chloride 96 mmol/L (98-107); Glucose 102 mg/dL (74-99); Potassium 3.9 mmol/L (3.5-5.1); Sodium 134 mmol/L (137-145)
[2018-07-23] MEDS: LIDOCAINE 2% GEL 30 ML TUBE TOPICAL SCH ×2 (08:07→20:53)
[2018-07-23] MEDS: ATORVASTATIN 10 MG TAB PO SCH (08:07)
[2018-07-23] MEDS: DOCUSATE 100 MG CAP PO SCH (08:07)
[2018-07-23] MEDS: MAGNESIUM OXIDE 400 MG TAB PO SCH (08:07)
[2018-07-23] MEDS: SPIRONOLACTONE 25 MG TAB PO SCH (08:07)
[2018-07-23] MEDS: ASPIRIN 81 MG PO SCH (08:07)
[2018-07-23] MEDS: IPRATROPIUM-ALBUTEROL 3 ML NEB INHALATION SCH ×4 (08:28→21:44)
[2018-07-23 11:22] LABS: Glucose,Whole Blood 88 mg/dL (75-99)
[2018-07-23] MEDS: WARFARIN 2.5 MG TAB PO SCH (14:48)
--- NOTE | 2018-07-23 15:02 | P.PN ---
Subjective Progress Note Date: 07/23/18 Principal diagnosis: Acute community-acquired pneumonia and enterococcus bacteremia and sepsis This is an 82-year-old white male with history of multiple medical problems including chronic atrial fibrillation, congestive heart failure, COPD, hypertension, hyperlipidemia, coronary artery disease and previous CABG. [facility] however this time he was brought in by his daughter who lives with the patient, and she has been noticing that the patient is getting generally weak, unable to get up from the bed to walk although he does have a walker and sometimes he uses an electric wheelchair. Upon evaluation in the ER, the patient was noted to be dehydrated, his lactic acid was also noted to be elevated, and a chest x-ray was done which I reviewed myself, suspicious for infiltrate in the right perihilar area and possibly in the left lower lobe. Patient had a temp of 102 on admission, hence he was started on IV antibiotics, bronchodilators, and this consult was initiated. Patient was also started back on his usual cardiac meds including Coumadin. The patient himself is a very poor historian, when asked about his symptoms, patient suggested that he call his . Patient was reevaluated today on 07/15/2018, remains in the ICU, hemodynamically stable, improved from the pulmonary perspective, however he is still requires about 5 L nasal cannula to maintain adequate saturation. Patient is refusing labs to be drawn today, he is also refusing to have a chest x-ray done. Insisting that he wouldn't have any of this done on to his shows up later today. His WBC count today is 11.7, hemoglobin 16.4. Electrolytes were noted to be abnormal with low potassium of 3.2. His BUN is 25 creatinine is 1.27. His creatinine yesterday was 1.09. Patient agreed to have the labs drawn, but refuses to have a chest x-ray done. Hence we'll delay the chest x-ray until tomorrow. Patient was reevaluated today on 07/16/2018, remains in the ICU, feeling much per her today, breathing a lot easier, remains on 2 L nasal cannula, O2 saturation is adequate. Patient seems to be agreeable today to have blood drawn and x-ray done, his is sitting at bedside. He did well have one episode of cough earlier today, and his sputum was blood tinged. Patient is on anticoagulation therapy. INR today is 2.1, PTT is 63.4. Electrolytes are normal except for slightly low potassium of 3.4, creatinine is 1.28, basically about the same over the last couple of days. Chest x-ray this morning continues to show cardiomegaly, patchy bibasilar opacities, consistent with pneumonia, however the possibility of pulmonary edema is not entirely ruled out. The left upper lobe nodule remains exactly the same, this will need eventual workup on outpatient basis and CT of the chest with contrast. His renal functioning today will prohibit doing a CT of the chest with contrast since his creatinine remains elevated. was made aware of this left upper lobe nodule, clearly at this point the patient is not a candidate for any surgical intervention, and is not a candidate for bronchoscopy and biopsy of this point. Patient was reevaluated today on 07/17/2018, remains in the ICU, patient is doing quite well. He is relatively asymptomatic, remains on few liters nasal cannula , denies any cough or wheezing or shortness of breath. Patient had a CT of the chest abdomen and pelvis, and he was found to have bilateral pleural effusions and compressive atelectasis, possible infiltrates in upper lung carreon. The nodule in the left upper lobe was noted to be calcified, hence makes malignancy less likely. Patient was also noted to have bilateral pleural effusions, and distal thoracic aortic aneurysm at the level of the aortic hiatus, and according to the he always had this aneurysm, and he chose not to have anything done about it. Apparently has been present for quite some time, and he decided to leave it alone. There was also evidence of cholelithiasis without wall thickening. His urine did not show evidence of enterococcus faecalis, it did show evidence of gram-negative bacilli. In the meantime the patient remains on Zosyn and vancomycin as per infectious disease on the case. Patient was reevaluated today on 07/18/2018, presently on overflow in the ICU. Doing fairly well, denies any cough no wheezing, no shortness of breath, no chest pain. Continues to have vague aches and pains especially in the lower extremities. His labs were reviewed, he had a relatively normal CBC and normal metabolic profile. Normal renal profile. Remains on antibiotics for Enterococcus faecalis bacteremia. Being followed by infectious disease on consultation. Patient was reevaluated today on 07/19/2018, doing quite well, relatively asymptomatic, no cough no wheezing or shortness of breath no chest pain no nausea no vomiting no abdominal pain, he has some vague aches and pains in the lower extremities. And some chronic venous stasis changes. Remains on antibiotics for his enterococcal bacteremia, CT of the abdomen and pelvis was nondiagnostic. He was seen by the infectious disease specialist and now he is recommending transesophageal echocardiogram to rule out infective endocarditis. This is yet to be decided upon by cardiology on the case. In the meantime the patient remains on Unasyn 3 g every 6 hours for his enterococcal bacteremia. On 07/21/2018 patient seen again in follow-up on selective care unit, he just had gotten back from his transesophageal echocardiogram, currently is still sedated, resting in bed, in no distress, room air pulse ox is 98%, he is afebrile. Lung sounds are still quite congested, positive for scattered rhonchi , ADAIR results showed no definite evidence of vegetations on mitral, aortic or tricuspid valve. No evidence of echogenic mass on the pacemaker electrodes, mild mitral regurgitation was noted. Internal arterial septum was intact. No new chest x-ray, it is labs have been reviewed, showed a PVC is 10.4, hemoglobin is 14.3, INR is 2.9, sodium is 138, potassium is 3.7, chloride is 97 , CO2 is 35, BUN was 15, creatinine 0.85. Follow blood cultures have been negative. Blood cultures from the 07/14/2018 were positive for Enterococcus faecalis, current antibiotic coverage is with Unasyn, ID service is following. The patient is seen today 07/22/2018 in follow-up on the selective care unit. He is currently resting quite comfortably in bed. He is awake and alert in no acute distress. He states he is not back to his baseline as far as his breathing is concerned. ADAIR revealed no evidence of vegetation. He is maintaining O2 saturations in the low 90s on 2 L/m per nasal cannula. He is afebrile. Hemodynamically stable. As x-ray continues to show evidence of COPD and cardiomegaly. There is improved aeration in the right base. Follow up blood cultures reveal no growth. Sputum culture reveals no growth. White count 10.5. Hemoglobin 14.9. INR 3.9. Creatinine 0.8. He remains on Unasyn. Patient is seen today 08/02/2018 in follow-up on the selective care unit. He is currently resting comfortably in bed. He is awake and alert in no acute distress. He denies any worsening shortness of breath, cough or congestion. Continue O2 saturations in the low 90s on 2 L/m per nasal cannula. He is afebrile. Hemodynamically stable. Repeat blood cultures are revealing no growth. White count 8.9. Hemoglobin 15.4. INR 4.5. Creatinine 0.87. He remains on bronchodilators, Unasyn, Objective - Vital Signs Vital signs: Vital Signs Temp 97.4 F L 07/23/18 11:51 Pulse 60 07/23/18 11:51 Resp 20 07/23/18 11:51 BP 149/72 07/23/18 11:51 Pulse Ox 91 L 07/23/18 11:51 Intake & Output 07/22/18 07/23/18 07/23/18 18:59 06:59 18:59 Intake Total 100 Output Total 1000 525 300 Balance -900 -525 -300 Weight 128 kg Intake: IV 100 Ampicillin-Sulbactam 3 gm 100 In Sodium Chloride 0.9% 100 ml @ 200 mls/hr IVPB Q6HR [facility] Rx#:[id number] Oral 0 Output: Urine 1000 525 300 Other: Voiding Method Urinal Urinal - Exam GENERAL EXAM: Morbidly obese. Disheveled. Alert, comfortable in no apparent distress. On nasal cannula. HEAD: Normocephalic. EYES: Normal reaction of pupils, equal size. NOSE: Clear with pink turbinates. THROAT: Crowding the posterior pharynx. No erythema or exudates. NECK: No masses, no JVD. CHEST: No chest wall deformity. LUNGS: Equal air entry with crackles in the posterior bases, diminished. CVS: S1 and S2 normal with no audible murmur, regular rhythm. ABDOMEN: No hepatosplenomegaly, normal bowel sounds, no guarding or rigidity. SPINE: No scoliosis or deformity SKIN: Changes of chronic venous stasis of the lower extremities. CENTRAL NERVOUS SYSTEM: No focal deficits, tone is normal in all 4 extremities. EXTREMITIES: There is 1-2+ peripheral edema. No clubbing, no cyanosis. Peripheral pulses are intact. - Labs CBC & Chem 7: 07/23/18 05:47 07/23/18 05:47 Labs: Abnormal Lab Results - Last 24 Hours (Table) 07/23/18 07/23/18 Range/Units 05:47 05:47 PT 43.3 H (9.0-12.0) sec INR 4.5 H (<1.2) Sodium 134 L (137-145) mmol/L Chloride 96 L (98-107) mmol/L Carbon Dioxide 31 H (22-30) mmol/L Glucose 102 H (74-99) mg/dL Microbiology - Last 24 Hours (Table) 07/16/18 15:34 Blood Culture - Final Blood No Growth after 144 hours 07/16/18 14:57 Blood Culture - Final Blood No Growth after 144 hours Assessment and Plan Assessment: Impression: 1 strongly suspect bilateral pneumonia, community-acquired, and sepsis. CT of the chest showed significant improvement, mostly bibasilar atelectasis and calcified left upper lobe nodule. Most recent chest x-ray reveals COPD, marked cardiomegaly. There is improved aeration in the right lung base. 2 elevated lactic acid secondary to sepsis. 3 brief episode of asystole requiring CPR for few minutes, with spontaneous recovery of pulse and circulation. This happened early this morning around 6: 20 AM while in the ICU, patient was about to be intubated, but was not done. Since the patient responded to CPR only. 4 generalized weakness secondary to sepsis and pneumonia 5 electrolytes imbalance mostly hyponatremia exact etiology is not clear. And hypokalemia 6 chronic atrial fibrillation 7 type 2 diabetes 8 previous CABG 9 history of pacemaker implantation 10 chronic kidney disease stage III. 11 acute hypoxic respiratory failure secondary to COPD and pneumonia. 12 acute exacerbation of COPD. Patient had remote smoking history. 13 elevated troponin, being addressed by cardiology. 14 left upper lobe solitary lung nodule, calcified, no further workup is necessary. 15 bacteremia secondary to Enterococcus faecalis, exact source is not clear, presently on Unasyn, patient is being considered for transesophageal echocardiogram. 16 old descending aortic aneurysm, chose not to have anything done about it in the past. Plan: The patient was seen and evaluated by Dr. Link. He is improved from the pulmonary standpoint. We'll continue with his current medications. Antibiotics per infectious disease. Currently on Unasyn. I, the cosigning physician, performed a history & physical examination of the patient. Lungs sounds crackles in the bilateral posterior bases. Maintaining good O2 saturations in the 90s on 2 L/m per nasal cannula. I discussed the assessment and plan of care with my nurse practitioner, Fadumo Mcdaniel. I attest to the above note as dictated by her.
[2018-07-23] MEDS ORDERED: MAGNESIUM SULFATE-D5W PMX 1 GM in DEXTROSE/WATER 1 100ML.BAG IVPB ONE (16:00)
--- NOTE | 2018-07-23 16:34 | PN ---
PROGRESS NOTE DATE OF SERVICE: 07/23/2018 REASON FOR FOLLOWUP: Enterococcus faecalis bacteremia. INTERVAL HISTORY: The patient is currently afebrile. He is breathing comfortably. Denies having significant chest pain. No cough. No abdominal pain or any diarrhea. PHYSICAL EXAMINATION: Blood pressure is 149/72 with a pulse of 50, temperature 97.4. He is 91% on 2 L nasal cannula. General description is an elderly male lying in bed in no distress. Respiratory system: Unlabored breathing. Clear to auscultation anteriorly. Heart S1, S2. Regular rate and rhythm. ABDOMEN: Soft, no tenderness. LABS: Hemoglobin 15.4, white count 8.9, BUN of 15, creatinine 0.87, INR is high at 4.5. Blood culture repeat has been negative. DIAGNOSTIC IMPRESSION AND PLAN: Patient with Enterococcus faecalis bacteremia. Follow up blood cultures remains to be negative. Did have no evidence of any deep abscess. The patient will need another 5-7 days of IV either ampicillin 2 g q.6h or daptomycin 6 mg/kg for the same 5- 7 days duration. If the patient goes home on IV daptomycin to make sure he is not on Lipitor for the same duration. Instructions were documented in the discharge note and close outpatient followup. The porter sample case is currently waiting for outpatient antibiotic arrangements before discharge. Continue supportive care. MMODL / IJN: [id number] /
[2018-07-23] MEDS: HYDROcodone/APAP 7.5-325MG 1 EACH TAB PO PRN (16:42)
[2018-07-23 17:10] LABS: Glucose,Whole Blood 101 mg/dL (75-99)
[2018-07-23 20:51] LABS: Glucose,Whole Blood 96 mg/dL (75-99)
[2018-07-23] MEDS: SODIUM CHLORIDE 0.9% 1,000 ML IV SCH (20:52)
[2018-07-24] MEDS: HYDROcodone/APAP 7.5-325MG 1 EACH TAB PO PRN ×3 (03:10→17:51)
[2018-07-24 05:49] LABS: Glucose,Whole Blood 83 mg/dL (75-99)
[2018-07-24] MEDS: INSULIN ASPART 100 UNIT/ML 1 ML 10 ML VIAL SQ SCH ×4 (06:06→21:11)
[2018-07-24] MEDS: AMPICILLIN-SULBACTAM 3 GM in SODIUM CHLORIDE 0.9% 100 ML IVPB SCH ×4 (06:31→23:03)
[2018-07-24] MEDS: CARVEDILOL 12.5 MG TAB PO SCH ×2 (06:32→17:42)
[2018-07-24] MEDS: IPRATROPIUM-ALBUTEROL 3 ML NEB INHALATION SCH ×4 (06:50→19:05)
[2018-07-24] MEDS: ATORVASTATIN 10 MG TAB PO SCH (10:05)
[2018-07-24] MEDS: LIDOCAINE 2% GEL 30 ML TUBE TOPICAL SCH ×2 (10:06→20:11)
[2018-07-24] MEDS: SPIRONOLACTONE 25 MG TAB PO SCH (10:06)
[2018-07-24] MEDS: ASPIRIN 81 MG PO SCH (10:06)
[2018-07-24] MEDS: MAGNESIUM OXIDE 400 MG TAB PO SCH (10:06)
[2018-07-24 11:36] LABS: Glucose,Whole Blood 93 mg/dL (75-99)
--- NOTE | 2018-07-24 13:55 | P.PN ---
Subjective Progress Note Date: 07/22/18 Principal diagnosis: Acute community-acquired pneumonia and enterococcus bacteremia and sepsis This is an 82-year-old white male with history of multiple medical problems including chronic atrial fibrillation, congestive heart failure, COPD, hypertension, hyperlipidemia, coronary artery disease and previous CABG. Patient usually gets his medical care through [facility], however this time he was brought in by his daughter who lives with the patient, and she has been noticing that the patient is getting generally weak, unable to get up from the bed to walk although he does have a walker and sometimes he uses an electric wheelchair. Upon evaluation in the ER, the patient was noted to be dehydrated, his lactic acid was also noted to be elevated, and a chest x-ray was done which I reviewed myself, suspicious for infiltrate in the right perihilar area and possibly in the left lower lobe. Patient had a temp of 102 on admission, hence he was started on IV antibiotics, bronchodilators, and this consult was initiated. Patient was also started back on his usual cardiac meds including Coumadin. The patient himself is a very poor historian, when asked about his symptoms, patient suggested that he call his . 07/22/2017 Patient is currently lying in the bed comfortably. Awake alert and is able to completely. Denied any complaints of worsening shortness of breath or chest pain. Patient being continued on antibiotics for bacteremia. ADAIR showed no evidence of infected endocarditis. Currently on oxygen therapy via nasal cannula 2 L. Has been afebrile. Chest x-ray showed evidence of COPD and Cardizem. Repeat cultures have been negative. Pulmonary and ID is following. Current medications reviewed Objective - Vital Signs Vital signs: Vital Signs Temp 97.4 F L 07/22/18 16:00 Pulse 60 07/22/18 16:00 Resp 18 07/22/18 16:00 BP 173/87 07/22/18 16:00 Pulse Ox 91 L 07/22/18 16:00 Intake & Output 07/21/18 07/22/18 07/22/18 18:59 06:59 18:59 Intake Total 310 100 Output Total 591 555 7536 Balance -332 -999 -900 Weight 122.5 kg Intake: IV 310 100 Ampicillin-Sulbactam 3 gm 100 100 In Sodium Chloride 0.9% 100 ml @ 200 mls/hr IVPB Q6HR [facility] Rx#:[id number] Sodium Chloride 0.9% 1, 160 000 ml @ 20 mls/hr IV . Q24H [facility] Rx#:[id number] Output: Urine [phone] Other: Voiding Method Urinal Urinal Urinal - Exam GENERAL EXAM: Morbidly obese. Disheveled. Alert, comfortable in no apparent distress. HEAD: Normocephalic. EYES: Normal reaction of pupils, equal size. NOSE: Clear with pink turbinates. THROAT: Crowding the posterior pharynx. No erythema or exudates. NECK: No masses, no JVD. CHEST: No chest wall deformity. LUNGS: Equal air entry with crackles in the posterior bases, diminished. CVS: S1 and S2 normal with no audible murmur, regular rhythm. ABDOMEN: No hepatosplenomegaly, normal bowel sounds, no guarding or rigidity. SPINE: No scoliosis or deformity SKIN: Changes of chronic venous stasis of the lower extremities. CENTRAL NERVOUS SYSTEM: No focal deficits, tone is normal in all 4 extremities. EXTREMITIES: There is 1-2+ peripheral edema. No clubbing, no cyanosis. Peripheral pulses are intact. - Labs CBC & Chem 7: 07/23/18 05:47 07/23/18 05:47 Labs: Abnormal Lab Results - Last 24 Hours (Table) 07/22/18 07/22/18 07/22/18 Range/Units 05:40 07:41 07:41 PT 37.2 H (9.0-12.0) sec INR 3.9 H (<1.2) Sodium 136 L (137-145) mmol/L POC Glucose (mg/dL) 74 L (75-99) mg/dL 07/22/18 Range/Units 11:50 PT (9.0-12.0) sec INR (<1.2) Sodium (137-145) mmol/L POC Glucose (mg/dL) 105 H (75-99) mg/dL Microbiology - Last 24 Hours (Table) 07/16/18 15:34 Blood Culture - Preliminary Blood No Growth after 120 hours 07/16/18 14:57 Blood Culture - Preliminary Blood No Growth after 120 hours Assessment and Plan Assessment: Bibasilar pneumonia possibly community-acquired Sepsis secondary to pneumonia and enterococcus fecalis bacteremia and UTI with E. coli Status post asystole requiring CPR for few minutes. Spontaneous recovery of circulation. Change in mental status with metabolic encephalopathy. 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 Descending aortic aneurysm. No surgical intervention at this time Plan: Patient will be continued on antibiotics for E. coli faecalis bacteremia. Continue Unasyn. Continue with PT OT and follow closely. Patient may need PICC line as per ID for IV antibiotics.. Further recommendations based on clinical course. Time with Patient: Greater than 30
--- NOTE | 2018-07-24 13:58 | P.PN ---
Subjective Progress Note Date: 07/23/18 Principal diagnosis: Acute community-acquired pneumonia and enterococcus bacteremia and sepsis This is an 82-year-old white male with history of multiple medical problems including chronic atrial fibrillation, congestive heart failure, COPD, hypertension, hyperlipidemia, coronary artery disease and previous CABG. [facility] however this time he was brought in by his daughter who lives with the patient, and she has been noticing that the patient is getting generally weak, unable to get up from the bed to walk although he does have a walker and sometimes he uses an electric wheelchair. Upon evaluation in the ER, the patient was noted to be dehydrated, his lactic acid was also noted to be elevated, and a chest x-ray was done which I reviewed myself, suspicious for infiltrate in the right perihilar area and possibly in the left lower lobe. Patient had a temp of 102 on admission, hence he was started on IV antibiotics, bronchodilators, and this consult was initiated. Patient was also started back on his usual cardiac meds including Coumadin. The patient himself is a very poor historian, when asked about his symptoms, patient suggested that he call his . 07/22/2018 Patient is currently lying in the bed comfortably. Awake alert and is able to completely. Denied any complaints of worsening shortness of breath or chest pain. Patient being continued on antibiotics for bacteremia. ADAIR showed no evidence of infected endocarditis. Currently on oxygen therapy via nasal cannula 2 L. Has been afebrile. Chest x-ray showed evidence of COPD and Cardizem. Repeat cultures have been negative. Pulmonary and ID is following. 07/23/2018 Patient denied any complaints of chest pain or worsening shortness of breath. Patient is being continued on IV antibiotics in the form of Unasyn. Repeat cultures blood cultures and sputum cultures have been negative. Continue oxygen therapy. Pulmonary and ID is following. Social work is following for IV antibiotics as an outpatient. Patient had PICC line placement today. No fever no chills. No nausea vomiting or abdominal pain. Tolerating oral diet. Continued on PT OT a oconnell is still having generalized weakness. Current medications reviewed Objective - Vital Signs Vital signs: Vital Signs Temp 97.3 F L 07/23/18 16:00 Pulse 64 07/23/18 16:02 Resp 20 07/23/18 16:00 BP 139/80 07/23/18 16:00 Pulse Ox 90 L 07/23/18 16:00 Intake & Output 07/23/18 07/23/18 07/24/18 06:59 18:59 06:59 Output Total 525 600 100 Balance -525 -600 -100 Weight 128 kg Output: Urine 525 600 100 Other: Voiding Method Urinal - Exam GENERAL EXAM: Morbidly obese. Disheveled. Alert, comfortable in no apparent distress. HEAD: Normocephalic. EYES: Normal reaction of pupils, equal size. NOSE: Clear with pink turbinates. THROAT: Crowding the posterior pharynx. No erythema or exudates. NECK: No masses, no JVD. CHEST: No chest wall deformity. LUNGS: Equal air entry with crackles in the posterior bases, diminished. CVS: S1 and S2 normal with no audible murmur, regular rhythm. ABDOMEN: No hepatosplenomegaly, normal bowel sounds, no guarding or rigidity. SPINE: No scoliosis or deformity SKIN: Changes of chronic venous stasis of the lower extremities. CENTRAL NERVOUS SYSTEM: No focal deficits, tone is normal in all 4 extremities. EXTREMITIES: There is 1-2+ peripheral edema. No clubbing, no cyanosis. Peripheral pulses are intact. - Labs CBC & Chem 7: 07/23/18 05:47 07/23/18 05:47 Labs: Abnormal Lab Results - Last 24 Hours (Table) 07/23/18 07/23/18 07/23/18 Range/Units 05:47 05:47 16:32 PT 43.3 H (9.0-12.0) sec INR 4.5 H (<1.2) Sodium 134 L (137-145) mmol/L Chloride 96 L (98-107) mmol/L Carbon Dioxide 31 H (22-30) mmol/L Glucose 102 H (74-99) mg/dL POC Glucose (mg/dL) 101 H (75-99) mg/dL Microbiology - Last 24 Hours (Table) 07/16/18 15:34 Blood Culture - Final Blood No Growth after 144 hours 07/16/18 14:57 Blood Culture - Final Blood No Growth after 144 hours Assessment and Plan Assessment: Bibasilar pneumonia possibly community-acquired. Sepsis secondary to pneumonia and enterococcus fecalis bacteremia and UTI with E. coli. Repeat cultures negative. E. coli urinary tract infection. Status post asystole requiring CPR for few minutes. Spontaneous recovery of circulation. Change in mental status with metabolic encephalopathy. Improved Acute on chronic kidney disease stage III. Resolved Acute on chronic CHF with systolic dysfunction ejection fraction 40-45% Hyponatremia. 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 Descending aortic aneurysm. No surgical intervention at this time Plan: Patient will be continued on antibiotics for E. coli faecalis bacteremia. Continue Unasyn. Continue with PT OT and follow closely. Patient may need PICC line as per ID for IV antibiotics.. Further recommendations based on clinical course. Time with Patient: Greater than 30
[2018-07-24] MEDS: traMADol 50 MG TAB PO PRN (14:54)
[2018-07-24 15:37] LABS: Prothrombin Time 58.1 sec (9.0-12.0)
--- NOTE | 2018-07-24 15:37 | PN ---
PROGRESS NOTE DATE OF SERVICE: 07/24/2018 REASON FOR FOLLOWUP: Enterococcus faecalis bacteremia. INTERVAL HISTORY: The patient is currently afebrile. He is breathing comfortably. Denies significant chest pain. Occasional cough. No abdominal pain and no diarrhea. PHYSICAL EXAMINATION: Blood pressure 134/74, pulse of 60, temperature 98, he is 88% on 2 L. General description is an elderly male, up in the chair in no distress. RESPIRATORY SYSTEM: Unlabored breathing with decreased breath sounds in the base, no wheeze. HEART: S1, S2. Regular rate and rhythm. ABDOMEN: Soft, no tenderness. LABS: White count 8 1 yesterday. BUN of 15, creatinine 0.78. DIAGNOSTIC IMPRESSION AND PLAN: Patient with Enterococcus faecalis bacteremia. Did have extensive workup with no evidence of any abscess. In view of his bacteremia with twice a total of 2 weeks of antibiotics with negative blood cultures with expected lot of antibiotic should be 07/29/2018. He will be switched over to daptomycin 6 mg/kg for 5 more doses in the outpatient setting. Once again, he will be able to go home from ID standpoint. Continue supportive care. MMODL / IJN: [id number] /
[2018-07-24] MEDS: WARFARIN 2.5 MG TAB PO SCH (17:36)
[2018-07-24 17:39] LABS: Glucose,Whole Blood 89 mg/dL (75-99)
[2018-07-24 18:03] VITALS: RESP 18
[2018-07-24] MEDS: SODIUM CHLORIDE 0.9% 1,000 ML IV SCH (20:12)
[2018-07-24 21:11] LABS: Glucose,Whole Blood 99 mg/dL (75-99)
--- NOTE | 2018-07-24 23:40 | P.PN ---
Subjective Progress Note Date: 07/24/18 Principal diagnosis: Acute community-acquired pneumonia and enterococcus bacteremia and sepsis This is an 82-year-old white male with history of multiple medical problems including chronic atrial fibrillation, congestive heart failure, COPD, hypertension, hyperlipidemia, coronary artery disease and previous CABG. [facility] however this time he was brought in by his daughter who lives with the patient, and she has been noticing that the patient is getting generally weak, unable to get up from the bed to walk although he does have a walker and sometimes he uses an electric wheelchair. Upon evaluation in the ER, the patient was noted to be dehydrated, his lactic acid was also noted to be elevated, and a chest x-ray was done which I reviewed myself, suspicious for infiltrate in the right perihilar area and possibly in the left lower lobe. Patient had a temp of 102 on admission, hence he was started on IV antibiotics, bronchodilators, and this consult was initiated. Patient was also started back on his usual cardiac meds including Coumadin. The patient himself is a very poor historian, when asked about his symptoms, patient suggested that he call his . 07/22/2018 Patient is currently lying in the bed comfortably. Awake alert and is able to completely. Denied any complaints of worsening shortness of breath or chest pain. Patient being continued on antibiotics for bacteremia. ADAIR showed no evidence of infected endocarditis. Currently on oxygen therapy via nasal cannula 2 L. Has been afebrile. Chest x-ray showed evidence of COPD and Cardizem. Repeat cultures have been negative. Pulmonary and ID is following. 07/23/2018 Patient denied any complaints of chest pain or worsening shortness of breath. Patient is being continued on IV antibiotics in the form of Unasyn. Repeat cultures blood cultures and sputum cultures have been negative. Continue oxygen therapy. Pulmonary and ID is following. Social work is following for IV antibiotics as an outpatient. Patient had PICC line placement today. No fever no chills. No nausea vomiting or abdominal pain. Tolerating oral diet. Continued on PT OT reid oconnell is still having generalized weakness. 07/24/2018 Patient denied any complaints of chest pain or shortness of breath today. Denied on IV antibiotics. Patient does request IV antibiotics upon discharge. PICC line was placed yesterday. INR is 6.0 today. Coumadin dose will be held today otherwise and follow-up INR tomorrow. Social work is working on setting up IV antibiotics at home. Anticipate discharge next 24 hours. Current medications reviewed Objective - Vital Signs Vital signs: Vital Signs Temp 97.7 F 07/24/18 08:25 Pulse 60 07/24/18 12:15 Resp 19 07/24/18 12:15 BP 134/74 07/24/18 12:15 Pulse Ox 88 L 07/24/18 12:15 Intake & Output 07/23/18 07/24/18 07/24/18 18:59 06:59 18:59 Intake Total 100 240 Output Total 600 325 Balance -600 -225 240 Weight 128.5 kg Intake: IV 100 Ampicillin-Sulbactam 3 gm 100 In Sodium Chloride 0.9% 100 ml @ 200 mls/hr IVPB Q6HR [facility] Rx#:[id number] Oral 240 Output: Urine 600 325 Other: Voiding Method Urinal # Voids 1 - Exam GENERAL EXAM: Morbidly obese. Disheveled. Alert, comfortable in no apparent distress. HEAD: Normocephalic. EYES: Normal reaction of pupils, equal size. NOSE: Clear with pink turbinates. THROAT: Crowding the posterior pharynx. No erythema or exudates. NECK: No masses, no JVD. CHEST: No chest wall deformity. LUNGS: Equal air entry with crackles in the posterior bases, diminished. CVS: S1 and S2 normal with no audible murmur, regular rhythm. ABDOMEN: No hepatosplenomegaly, normal bowel sounds, no guarding or rigidity. SPINE: No scoliosis or deformity SKIN: Changes of chronic venous stasis of the lower extremities. CENTRAL NERVOUS SYSTEM: No focal deficits, tone is normal in all 4 extremities. EXTREMITIES: There is 1-2+ peripheral edema. No clubbing, no cyanosis. Peripheral pulses are intact. - Labs CBC & Chem 7: 07/23/18 05:47 07/23/18 05:47 Labs: Abnormal Lab Results - Last 24 Hours (Table) 07/23/18 Range/Units 16:32 POC Glucose (mg/dL) 101 H (75-99) mg/dL Assessment and Plan Assessment: Bibasilar pneumonia possibly community-acquired. Sepsis secondary to pneumonia and enterococcus fecalis bacteremia and UTI with E. coli. Repeat cultures negative. E. coli urinary tract infection. Status post asystole requiring CPR for few minutes. Spontaneous recovery of circulation. Change in mental status with metabolic encephalopathy. Improved Acute on chronic kidney disease stage III. Resolved Acute on chronic CHF with systolic dysfunction ejection fraction 40-45% Hyponatremia. 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 Descending aortic aneurysm. No surgical intervention at this time Plan: Patient will be continued on antibiotics for E. coli faecalis bacteremia. Continue Unasyn. Continue with PT OT and follow closely. Patient may need PICC line as per ID for IV antibiotics.. Further recommendations based on clinical course. Time with Patient: Greater than 30
[2018-07-25 05:47] LABS: Glucose,Whole Blood 75 mg/dL (75-99)
[2018-07-25] MEDS: INSULIN ASPART 100 UNIT/ML 1 ML 10 ML VIAL SQ SCH ×2 (06:17→12:06)
[2018-07-25] MEDS: AMPICILLIN-SULBACTAM 3 GM in SODIUM CHLORIDE 0.9% 100 ML IVPB SCH ×2 (06:18→12:14)
[2018-07-25] MEDS: CARVEDILOL 12.5 MG TAB PO SCH (06:19)
[2018-07-25 06:41] LABS: Prothrombin Time 54.4 sec (9.0-12.0)
[2018-07-25] MEDS: IPRATROPIUM-ALBUTEROL 3 ML NEB INHALATION SCH ×3 (06:52→15:23)
[2018-07-25 06:56] LABS: INR 5.6 (<1.2)
[2018-07-25] MEDS: ASPIRIN 81 MG PO SCH (09:47)
[2018-07-25] MEDS: DOCUSATE 100 MG CAP PO SCH (09:47)
[2018-07-25] MEDS: MAGNESIUM OXIDE 400 MG TAB PO SCH (09:47)
[2018-07-25] MEDS: ATORVASTATIN 10 MG TAB PO SCH (09:47)
[2018-07-25] MEDS: SPIRONOLACTONE 25 MG TAB PO SCH (09:47)
[2018-07-25] MEDS: LIDOCAINE 2% GEL 30 ML TUBE TOPICAL SCH (10:02)
[2018-07-25] MEDS ORDERED: PHYTONADIONE ORAL 5 MG/5 ML ORAL.SYRG PO STA (11:06)
[2018-07-25 11:09] LABS: Glucose,Whole Blood 84 mg/dL (75-99)
[2018-07-25 12:53] VITALS: BMI 38.4
--- NOTE | 2018-07-25 13:26 | XR ---
EXAMINATION TYPE: XR chest 1V DATE OF EXAM: 07/25/2018 COMPARISON: Prior chest x-ray 07/22/[address] July 17, 2018 HISTORY: Shortness of breath TECHNIQUE: Single frontal view of the chest is obtained. FINDINGS: Patient is post median sternotomy and rotated. Generator is present in the left pectoral r egion, there is a lead in the right ventricle and right atrium. No evident pneumothorax. Heart is enl arged but is accentuated due to rotation. Left hemidiaphragm is obscured. Basilar density also suspec rosemarie on the right. Pulmonary vascularity is prominent. Suspect left upper lobe lung nodule. IMPRESSION: Findings could be indicative of pneumonia, correlate to exclude atelectasis, possible ef fusion, edema and possible heart failure.
[2018-07-25 14:42] VITALS: BP 126/78; TEMP 97.5
--- NOTE | 2018-07-25 15:29 | PN ---
PROGRESS NOTE DATE OF SERVICE: 07/25/2018 REASON FOR FOLLOWUP: Enterococcus faecalis bacteremia. INTERVAL HISTORY: The patient is currently afebrile. He seems to be breathing more comfortably. The patient denies having any chest pain or shortness of breath. Occasional cough. No abdominal pain, no diarrhea. PHYSICAL EXAMINATION: Blood pressure 126/78 with a pulse of 60, temperature 97.5. He is 90% on room air. General description is an elderly male, up in the chair in no distress. RESPIRATORY SYSTEM: Unlabored breathing, clear to auscultation anteriorly. HEART: S1, S2. Regular rate and rhythm. ABDOMEN: Soft, no tenderness. LABS: No new labs have been obtained today except his INR which is elevated to 5.6. Blood cultures, has been negative. IMPRESSION/PLAN: Admission with Enterococcus faecalis bacteremia. Unfortunately, outpatient antibiotics did have been issue and the patient received about 12 days of IV antibiotic therapy. That should be more than enough. Transition him to a short course of oral Augmentin, discontinue the before discharge. His INR need to monitor very closely while on antibiotics. Plan of care discussed with the nurse as well as the manager case. MMODL / IJN: [id number] /
[2018-07-25 15:42] VITALS: PULSE 80
--- NOTE | 2018-07-25 22:28 | P.DS ---
Providers Date of admission: 07/13/18 21:20 Expected date of discharge: 07/25/18 Attending physician: Yosef Rutledge Consults: 07/14/18 00:25 Consult Physician Urgent Consulting Provider: Armani Martinez Consult Reason/Comments: heart failure Do you want consulting provider notified?: Yes 07/14/18 01:44 Consult Physician Routine Consulting Provider: Matteo Link Consult Reason/Comments: pneumonia Do you want consulting provider notified?: Yes 07/14/18 17:53 Consult Physician Routine Consulting Provider: Mercedes Ramos Consult Reason/Comments: Bacteremia Do you want consulting provider notified?: Yes Primary care physician: Sergio Restrepo MD Hospital Course: Discharge diagnosis Bibasilar pneumonia possibly community-acquired. Sepsis secondary to pneumonia and enterococcus fecalis bacteremia and UTI with E. coli. Repeat cultures negative. E. coli urinary tract infection. Status post asystole requiring CPR for few minutes. Spontaneous recovery of circulation. Change in mental status with metabolic encephalopathy. Improved Acute on chronic kidney disease stage III. Resolved Acute on chronic CHF with systolic dysfunction ejection fraction 40-45% Hyponatremia. 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 Descending aortic aneurysm. No surgical intervention at this time Hospital course This is an 82-year-old white male with history of multiple medical problems including chronic atrial fibrillation, congestive heart failure, COPD, hypertension, hyperlipidemia, coronary artery disease and previous CABG. Patient usually gets his medical care through the [place], however this time he was brought in by his daughter who lives with the patient, and she has been noticing that the patient is getting generally weak, unable to get up from the bed to walk although he does have a walker and sometimes he uses an electric wheelchair. Upon evaluation in the ER, the patient was noted to be dehydrated, his lactic acid was also noted to be elevated, and a chest x-ray was done which I reviewed myself, suspicious for infiltrate in the right perihilar area and possibly in the left lower lobe. Patient had a temp of 102 on admission, hence he was started on IV antibiotics, bronchodilators, and this consult was initiated. Patient was also started back on his usual cardiac meds including Coumadin. The patient himself is a very poor historian, when asked about his symptoms, patient suggested that he call his . 07/22/2018 Patient is currently lying in the bed comfortably. Awake alert and is able to completely. Denied any complaints of worsening shortness of breath or chest pain. Patient being continued on antibiotics for bacteremia. ADAIR showed no evidence of infected endocarditis. Currently on oxygen therapy via nasal cannula 2 L. Has been afebrile. Chest x-ray showed evidence of COPD and Cardizem. Repeat cultures have been negative. Pulmonary and ID is following. 07/23/2018 Patient denied any complaints of chest pain or worsening shortness of breath. Patient is being continued on IV antibiotics in the form of Unasyn. Repeat cultures blood cultures and sputum cultures have been negative. Continue oxygen therapy. Pulmonary and ID is following. Social work is following for IV antibiotics as an outpatient. Patient had PICC line placement today. No fever no chills. No nausea vomiting or abdominal pain. Tolerating oral diet. Continued on PT OT reid oconnell is still having generalized weakness. 07/24/2018 Patient denied any complaints of chest pain or shortness of breath today. Denied on IV antibiotics. Patient does request IV antibiotics upon discharge. PICC line was placed yesterday. INR is 6.0 today. Coumadin dose will be held today otherwise and follow-up INR tomorrow. Social work is working on setting up IV antibiotics at home. Anticipate discharge next 24 hours. 07/25/2018 Patient is able to sit in the chair. Saturating on room air about 90%. chest x -ray showed basilar infiltrates/pneumonia. Continued on antibiotics as per ID recommendations. INR is 4.6 today. Patient was given 2.5 mg of vitamin K. Recommended to hold Coumadin for next 2 days and follow-up with primary care physician for repeat INR level. Otherwise patient is stable to be discharged home with family. GENERAL EXAM: Morbidly obese. Disheveled. Alert, comfortable in no apparent distress. HEAD: Normocephalic. EYES: Normal reaction of pupils, equal size. NOSE: Clear with pink turbinates. THROAT: Crowding the posterior pharynx. No erythema or exudates. NECK: No masses, no JVD. CHEST: No chest wall deformity. LUNGS: Equal air entry with crackles in the posterior bases, diminished. CVS: S1 and S2 normal with no audible murmur, regular rhythm. ABDOMEN: No hepatosplenomegaly, normal bowel sounds, no guarding or rigidity. SPINE: No scoliosis or deformity SKIN: Changes of chronic venous stasis of the lower extremities. CENTRAL NERVOUS SYSTEM: No focal deficits, tone is normal in all 4 extremities. EXTREMITIES: There is 1-2+ peripheral edema. No clubbing, no cyanosis. Peripheral pulses are intact. Vital Signs - 24 hr 07/24/18 07/24/18 07/25/18 23:31 23:33 04:00 Temperature 97.5 F L 97.0 F L Pulse Rate Pulse Rate [ 60 60 57 L Waistline Joiner Lockstitch ] Respiratory 18 18 18 Rate Blood Pressure 126/75 148/72 [Left Arm] O2 Sat by Pulse 90 L 90 L Oximetry 07/25/18 07/25/18 07/25/18 07:55 12:00 12:25 Temperature 97 F L 97.5 F L Pulse Rate 78 Pulse Rate [ 60 60 Waistline Joiner Lockstitch ] Respiratory 18 18 Rate Blood Pressure 148/76 126/78 [Left Arm] O2 Sat by Pulse 88 L 90 L Oximetry 07/25/18 07/25/18 07/25/18 12:32 15:23 15:40 Temperature Pulse Rate 80 82 80 Pulse Rate [ Waistline Joiner Lockstitch ] Respiratory Rate Blood Pressure [Left Arm] O2 Sat by Pulse Oximetry Total time taken greater than 35 minutes including 18 minutes for counseling and coordination of care. Patient Condition at Discharge: Stable Plan - Discharge Summary New Discharge Prescriptions: New Carvedilol [Coreg*] 12.5 mg PO BID-W/MEALS #60 tab Spironolactone [Aldactone] 50 mg PO DAILY #60 tab Amoxic-Pot Clav 875-125Mg [Augmentin 875-125] 1 tab PO BID 7 Days #14 tab Continue Warfarin [Coumadin] 2.5 mg PO MOWEFRSA Warfarin Sodium [Coumadin] 3.75 mg PO SUTUTH Rosuvastatin Calcium [Crestor] 5 mg PO DIRECTED Ipratropium-Albuterol Nebulize [Duoneb 0.5 mg-3 mg/3 ml Soln] 3 ml INHALATION RT-QID HYDROcodone/APAP 7.5-325MG [[place] 7.5-325] 1 tab PO Q6HR PRN PRN Reason: Pain Flaxseed Oil 1,000 mg PO DAILY Docusate [Colace] 100 mg PO Q48H Aspirin [[place] Aspirin EC] 81 mg PO DAILY Discontinued Niacin 2,000 mg PO DAILY Metoprolol Tartrate [Lopressor] 25 mg PO BID Chlorthalidone 25 mg PO DAILY Discharge Medication List Aspirin [[place]os Aspirin EC] 81 mg PO DAILY 07/13/18 [History] Docusate [Colace] 100 mg PO Q48H 07/13/18 [History] Flaxseed Oil 1,000 mg PO DAILY 07/13/18 [History] HYDROcodone/APAP 7.5-325MG [[place] 7.5-325] 1 tab PO Q6HR PRN 07/13/18 [History] Ipratropium-Albuterol Nebulize [Duoneb 0.5 mg-3 mg/3 ml Soln] 3 ml INHALATION RT -QID 07/13/18 [History] Rosuvastatin Calcium [Crestor] 5 mg PO DIRECTED 07/13/18 [History] Warfarin Sodium [Coumadin] 3.75 mg PO SUTUTH 07/13/18 [History] Warfarin [Coumadin] 2.5 mg PO MOWEFRSA 07/13/18 [History] Amoxic-Pot Clav 875-125Mg [Augmentin 875-125] 1 tab PO BID 7 Days #14 tab [Rx] Carvedilol [Coreg*] 12.5 mg PO BID-W/MEALS #60 tab 07/25/18 [Rx] Spironolactone [Aldactone] 50 mg PO DAILY #60 tab 07/25/18 [Rx] Follow up Appointment(s)/Referral(s): Sergio Restrepo MD [Primary Care Provider] - 1 Week Mercedes Ramos MD [STAFF PHYSICIAN] - 1 Week Patient Instructions/Handouts: Elevated INR (DC), Bacteremia (DC) Activity/Diet/Wound Care/Special Instructions: Hold coumadin for 2 days. Resume on Friday, July 27, 2018. [facility] [phone]. Discharge Disposition: HOME WITH HOME HEALTH SERVICES
== END 2018-07-25 16:22 | disposition home health service (06) | DRG 871 ==
LOC: EC 16:52 → 3SCARD 21:20 → 2SICU 23:16 → 3SCARD 07-19 21:29
PROVIDERS: ADMIT Hospitalist; ATTEND Hospitalist
PROC: 05HF33Z Insertion of Infusion Device into Left Cephalic Vein, Percutaneous Approach (ICD-10-PCS; principal; 2018-07-22 14:00)
PROC: B54NZZA Ultrasonography of Left Upper Extremity Veins, Guidance (ICD-10-PCS; 2018-07-22 14:00)
DX: A41.81 Sepsis due to Enterococcus (principal); G93.41 Metabolic encephalopathy; I46.9 Cardiac arrest, cause unspecified; I50.23 Acute on chronic systolic (congestive) heart failure; J18.9 Pneumonia, unspecified organism; J96.01 Acute respiratory failure with hypoxia; R65.21 Severe sepsis with septic shock; E87.1 Hypo-osmolality and hyponatremia; E87.2 Acidosis; I13.0 Hypertensive heart and chronic kidney disease with heart failure and stage 1 through stage 4 chronic kidney disease, or unspecified chronic kidney disease; I42.9 Cardiomyopathy, unspecified; J44.0 Chronic obstructive pulmonary disease with (acute) lower respiratory infection; J44.1 Chronic obstructive pulmonary disease with (acute) exacerbation; J98.11 Atelectasis; N17.9 Acute kidney failure, unspecified; N39.0 Urinary tract infection, site not specified; E11.22 Type 2 diabetes mellitus with diabetic chronic kidney disease; E66.01 Morbid (severe) obesity due to excess calories; E78.5 Hyperlipidemia, unspecified; E83.42 Hypomagnesemia; E86.0 Dehydration; E87.6 Hypokalemia; I25.10 Atherosclerotic heart disease of native coronary artery without angina pectoris; I35.8 Other nonrheumatic aortic valve disorders; I48.2 Chronic atrial fibrillation; I71.2 Thoracic aortic aneurysm, without rupture; I87.8 Other specified disorders of veins; K80.20 Calculus of gallbladder without cholecystitis without obstruction; N18.3 Chronic kidney disease, stage 3 (moderate); Z53.20 Procedure and treatment not carried out because of patient's decision for unspecified reasons; Z79.01 Long term (current) use of anticoagulants; Z79.82 Long term (current) use of aspirin; Z79.899 Other long term (current) drug therapy; Z87.01 Personal history of pneumonia (recurrent); Z87.891 Personal history of nicotine dependence; Z90.49 Acquired absence of other specified parts of digestive tract; Z95.0 Presence of cardiac pacemaker; Z95.1 Presence of aortocoronary bypass graft
CPT/HCPCS: 36410; 36415; 36600; 70450; 71045; 71046; 71250; 74176; 76700; 76937; 80048; 80053; 80202; 81001; 82550; 82553; 82805; 83605; 83735; 83880; 84100; 84132; 84484; 85025; 85027; 85610; 85730; 87040; 87070; 87077; 87086; 87150; 87186; 87205; 87502; 93005; 93306; 93312; 93320; 93325; 94640; 94760; 96360; 96361; 99285

== ENCOUNTER 2020-01-29 11:31 | Inpatient (IN) | payer OTHER, MEDICARE ==
--- NOTE | 2020-01-29 12:00 | ED ---
General Adult HPI - General Chief complaint: Shortness of Breath Stated complaint: SOB Time Seen by Provider: 01/29/20 11:40 Source: patient, family, RN notes reviewed, old records reviewed Mode of arrival: wheelchair Limitations: no limitations - History of Present Illness Initial comments: This is an 84-year-old male who presents emergency Department complaining of difficulty breathing since he woke up this morning. Patient states he has history of COPD and congestive heart failure. Patient states she's on Coumadin for A. fib he also has a pacemaker placed. Patient states is borderline diabetic as well per patient denies any recent fever chills he does have an occasional cough and is coughing up some thick her sputum is whitish in color. Patient denies any chest pain or palpitations. Patient denies abdominal pain. Patient denies any distention of the abdomen. Patient states is chronic cellulitis of bilateral legs is unchanged. - Related Data Home Medications Medication Instructions Recorded Confirmed Aspirin [[place] Aspirin EC] 81 mg PO DAILY 07/13/18 07/13/18 Docusate [Colace] 100 mg PO Q48H 07/13/18 07/15/18 Flaxseed Oil 1,000 mg PO DAILY 07/13/18 07/13/18 HYDROcodone/APAP 7.5-325MG [[place] 1 tab PO Q6HR PRN 07/13/18 07/13/18 7.5-325] Ipratropium-Albuterol Nebulize 3 ml INHALATION RT-QID 07/13/18 07/13/18 [Duoneb 0.5 mg-3 mg/3 ml Soln] Rosuvastatin Calcium [Crestor] 5 mg PO DIRECTED 07/13/18 07/13/18 Warfarin Sodium [Coumadin] 3.75 mg PO SUTUTH 07/13/18 07/13/18 Warfarin [Coumadin] 2.5 mg PO MOWEFRSA 07/13/18 07/13/18 Previous Rx's Medication Instructions Recorded Amoxic-Pot Clav 875-125Mg 1 tab PO BID 7 Days #14 tab 07/25/18 [Augmentin 875-125] Carvedilol [Coreg*] 12.5 mg PO BID-W/MEALS #60 tab 07/25/18 Spironolactone [Aldactone] 50 mg PO DAILY #60 tab 07/25/18 Allergies Allergy/AdvReac Type Severity Reaction Status Date / Time sulfamethoxazole Allergy Unknown Verified 01/29/20 11:39 [From Bactrim] trimethoprim [From Bactrim] Allergy Unknown Verified 01/29/20 11:39 Review of Systems ROS Statement: Those systems with pertinent positive or pertinent negative responses have been documented in the HPI. ROS Other: All systems not noted in ROS Statement are negative. Past Medical History Past Medical History: Atrial Fibrillation, Coronary Artery Disease (CAD), Heart Failure, COPD, Diabetes Mellitus, Hypertension History of Any Multi-Drug Resistant Organisms: None Reported Past Surgical History: Appendectomy, Coronary Bypass/CABG, Heart Catheterization, Joint Replacement, Orthopedic Surgery, Pacemaker Past Anesthesia/Blood Transfusion Reactions: No Reported Reaction Type of Cardiac Device: Permanent Pacemaker Device Placement Date:: 2004 Past Psychological History: No Psychological Hx Reported Smoking Status: Former smoker Past Alcohol Use History: None Reported Past Drug Use History: None Reported - Past Family History Father Additional Family Medical History / Comment(s): chronic cardiac disease General Exam - General Exam Comments Initial Comments: GENERAL: Patient is well-developed and well-nourished. Patient is nontoxic and well- hydrated and is in moderate distress. ENT: Neck is soft and supple. No significant lymphadenopathy is noted. Oropharynx is clear. Moist mucous membranes. Neck has full range of motion without eliciting any pain. EYES: The sclera were anicteric and conjunctiva were pink and moist. Extraocular movements were intact and pupils were equal round and reactive to light. Eyelids were unremarkable. PULMONARY: Diminished breath sounds diffusely CARDIOVASCULAR: There is a regular rate and rhythm without any murmurs gallops or rubs. ABDOMEN: Patient's abdomen is large but he states it's unchanged and there is no area of tenderness. SKIN: Skin is clear with no lesions or rashes and otherwise unremarkable. NEUROLOGIC: Patient is alert and oriented x3. Cranial nerves II through XII are grossly intact. Motor and sensory are also intact. Normal speech, volume and content. Symmetrical smile. MUSCULOSKELETAL: Normal extremities with adequate strength and full range of motion. Chronic sailors bilaterally with 2+ edema LYMPHATICS: No significant lymphadenopathy is noted PSYCHIATRIC: Normal psychiatric evaluation. Limitations: no limitations Course Vital Signs 01/29/20 01/29/20 11:36 13:20 Temperature 97.9 F Pulse Rate 60 60 Respiratory 22 20 Rate Blood Pressure 160/82 110/50 O2 Sat by Pulse 97 97 Oximetry Medical Decision Making - Medical Decision Making EKG shows sinus rhythm patient has a paced rhythm at 60 bpm QRS is 194 QT interval is 476 QTC is 476. Chest x-ray shows possible pneumonia. I started the patient Rocephin. I spoke with some physicians agreed to admit the patient admitted the patient wrote admitting orders. - Lab Data Result diagrams: 01/29/20 11:53 01/29/20 11:53 Lab Results 01/29/20 01/29/20 01/29/20 Range/Units 11:53 11:53 11:53 WBC 10.9 H (3.8-10.6) k/uL RBC 5.46 (4.30-5.90) m/uL Hgb 16.0 (13.0-17.5) gm/dL Hct 51.7 (39.0-53.0) % MCV 94.7 (80.0-100.0) fL MCH 29.3 (25.0-35.0) pg MCHC 31.0 (31.0-37.0) g/dL RDW 13.9 (11.5-15.5) % Plt Count 197 (150-450) k/uL Neutrophils % 81 % Lymphocytes % 6 % Monocytes % 5 % Eosinophils % 5 % Basophils % 1 % Neutrophils # 8.9 H (1.3-7.7) k/uL Lymphocytes # 0.7 L (1.0-4.8) k/uL Monocytes # 0.6 (0-1.0) k/uL Eosinophils # 0.5 (0-0.7) k/uL Basophils # 0.1 (0-0.2) k/uL PT 22.8 H (9.0-12.0) sec INR 2.3 H (<1.2) APTT 33.8 H (22.0-30.0) sec Sodium 137 (137-145) mmol/L Potassium 4.6 (3.5-5.1) mmol/L Chloride 101 (98-107) mmol/L Carbon Dioxide 27 (22-30) mmol/L Anion Gap 9 mmol/L BUN 28 H (9-20) mg/dL Creatinine 1.03 (0.66-1.25) mg/dL Est GFR (CKD-EPI)AfAm 78 (>60 ml/min/1.73 sqM) Est GFR (CKD-EPI)NonAf 67 (>60 ml/min/1.73 sqM) Glucose 116 H (74-99) mg/dL Plasma Lactic Acid Sebastian (0.7-2.0) mmol/L Calcium 9.4 (8.4-10.2) mg/dL Magnesium 1.9 (1.6-2.3) mg/dL Total Bilirubin 0.6 (0.2-1.3) mg/dL AST 21 (17-59) U/L ALT 17 (4-49) U/L Alkaline Phosphatase 87 (38-126) U/L Troponin I (0.000-0.034) ng/mL NT-Pro-B Natriuret Pep pg/mL Total Protein 6.7 (6.3-8.2) g/dL Albumin 4.2 (3.5-5.0) g/dL 01/29/20 01/29/20 01/29/20 Range/Units 11:53 11:53 11:53 WBC (3.8-10.6) k/uL RBC (4.30-5.90) m/uL Hgb (13.0-17.5) gm/dL Hct (39.0-53.0) % MCV (80.0-100.0) fL MCH (25.0-35.0) pg MCHC (31.0-37.0) g/dL RDW (11.5-15.5) % Plt Count (150-450) k/uL Neutrophils % % Lymphocytes % % Monocytes % % Eosinophils % % Basophils % % Neutrophils # (1.3-7.7) k/uL Lymphocytes # (1.0-4.8) k/uL Monocytes # (0-1.0) k/uL Eosinophils # (0-0.7) k/uL Basophils # (0-0.2) k/uL PT (9.0-12.0) sec INR (<1.2) APTT (22.0-30.0) sec Sodium (137-145) mmol/L Potassium (3.5-5.1) mmol/L Chloride (98-107) mmol/L Carbon Dioxide (22-30) mmol/L Anion Gap mmol/L BUN (9-20) mg/dL Creatinine (0.66-1.25) mg/dL Est GFR (CKD-EPI)AfAm (>60 ml/min/1.73 sqM) Est GFR (CKD-EPI)NonAf (>60 ml/min/1.73 sqM) Glucose (74-99) mg/dL Plasma Lactic Acid Sebastian 1.2 (0.7-2.0) mmol/L Calcium (8.4-10.2) mg/dL Magnesium (1.6-2.3) mg/dL Total Bilirubin (0.2-1.3) mg/dL AST (17-59) U/L ALT (4-49) U/L Alkaline Phosphatase (38-126) U/L Troponin I <0.012 (0.000-0.034) ng/mL NT-Pro-B Natriuret Pep 575 pg/mL Total Protein (6.3-8.2) g/dL Albumin (3.5-5.0) g/dL Disposition Clinical Impression: Dyspnea, Pneumonia Disposition: ADMITTED IP TO THIS HOSP Referrals: Sergio Restrepo MD [Primary Care Provider] - 1-2 days Time of Disposition: 13:38
[2020-01-29 12:28] LABS: Basophils # (A) 0.1 k/uL (0-0.2); Basophils % (A) 1 %; Eosinophils # (A) 0.5 k/uL (0-0.7); Eosinophils % (A) 5 %; HCT 51.7 % (39.0-53.0); Lymphocytes # (A) 0.7 k/uL (1.0-4.8); Lymphocytes % (A) 6 %; MCH 29.3 pg (25.0-35.0); MCV 94.7 fL (80.0-100.0); Mean Platelet Volume 7.7; Monocytes # (A) 0.6 k/uL (0-1.0); Monocytes % (A) 5 %; Neutrophils # (A) 8.9 k/uL (1.3-7.7); Neutrophils % (A) 81 %; Platelet Count 197 k/uL (150-450); RBC 5.46 m/uL (4.30-5.90); RDW 13.9 % (11.5-15.5); WBC 10.9 k/uL (3.8-10.6)
[2020-01-29 12:36] LABS: INR 2.3 (<1.2); Partial Thromboplastin Time 33.8 sec (22.0-30.0); Prothrombin Time 22.8 sec (9.0-12.0)
--- NOTE | 2020-01-29 12:42 | XR ---
EXAMINATION TYPE: XR chest 2V DATE OF EXAM: 01/29/2020 COMPARISON: 07/25/2018 INDICATION: Difficulty breathing, short of breath TECHNIQUE: Frontal and lateral views of the chest are obtained. FINDINGS: The heart size is mildly prominent. Pacemaker overlies left chest. Sternotomy wires are present. The pulmonary vasculature is normal. Some mild increased lung markings are at the right lung base. Correlate for subsegmental atelectasis or early pneumonia. There is hyperinflation flattening the diaphragms compatible COPD. IMPRESSION: 1. Subsegmental atelectasis versus early pneumonia right lung base. Follow-up can be performed as cli nically indicated.
[2020-01-29 12:52] LABS: Albumin 4.2 g/dL (3.5-5.0); Calcium 9.4 mg/dL (8.4-10.2); Magnesium 1.9 mg/dL (1.6-2.3); Potassium 4.6 mmol/L (3.5-5.1); Total Bilirubin 0.6 mg/dL (0.2-1.3); Total Protein 6.7 g/dL (6.3-8.2)
[2020-01-29] MEDS ORDERED: cefTRIAXone IN SWFI 1,000 MG/10 ML SYRINGE IVP STA (13:28)
[2020-01-29] MEDS ORDERED: PNEUMONIA PROTOCOL UTILIZED 1 EACH MISC PO PRN (13:39)
[2020-01-29] MEDS ORDERED: methylPREDNISolone SOD SUCCI 125 MG/2 ML VIAL IV STA (13:44)
[2020-01-29] MEDS ORDERED: CARVEDILOL 12.5 MG TAB PO STA (14:08)
[2020-01-29] MEDS ORDERED: ASPIRIN 81 MG PO STA (14:08)
[2020-01-29] MEDS ORDERED: SPIRONOLACTONE 25 MG TAB PO STA (14:08)
[2020-01-29] MEDS ORDERED: LEVOFLOXACIN 750MG-D5W PMX 750 MG in DEXTROSE/WATER 1 150ML.BAG IVPB STA (14:31)
[2020-01-29] MEDS: IPRATROPIUM-ALBUTEROL 3 ML NEB INHALATION SCH ×2 (16:31→19:15)
[2020-01-29] MEDS ORDERED: ACETAMINOPHEN TAB 325 MG TAB PO PRN (17:50)
[2020-01-29] MEDS ORDERED: ONDANSETRON 4 MG/2 ML VIAL IVP PRN (17:50)
[2020-01-29] MEDS ORDERED: NALOXONE 0.4 MG/ML 1 ML VIAL IV PRN (17:50)
[2020-01-29] MEDS ORDERED: SODIUM CHLORIDE 0.9% 1,000 ML IV SCH (18:00)
[2020-01-29] MEDS ORDERED: IPRATROPIUM-ALBUTEROL 3 ML NEB INHALATION PRN (18:01)
--- NOTE | 2020-01-29 18:06 | P.HPIM ---
History of Present Illness H&P Date: 01/29/20 Chief Complaint: Shortness of breath 84-year-old male with PMH of CAD post CABG, COPD and emphysema, abdominal aortic aneurysm, atrial fibrillation on Coumadin, systolic CHF, pacemaker for complete heart block, presents the ED for shortness of breath. His is at bedside providing majority of the history. reports that patient woke up this morning with labored breathing. He received Robitussin, DuoNeb treatment and went back to sleep. Patient woke up a couple hours later without any resolution of symptoms which prompted his to bring him to the ED. reports that his O2 saturation was within normal limits and his temperature was regular. Patient is on 2 L at bedtime and as needed throughout the day. Patient reports cough that is chronic productive of clear white sputum. He reports lower extremity swelling left greater than right is chronic in nature due to an injury of his left lower extremity he suffered while in the [employer]. Patient also reports one episode of emesis while eating a sandwich in the ED. He denies any headache, fever or chills, chest pain, palpitations, changes in urination or bowel habits. No changes in appetite or weight. He denies any dizziness, numbness/weakness/tingling of the extremities. In the ED, his vital signs are stable except for elevated BP. CBC showed leukocytosis of 10.9. INR was 2.3. CMP showed BUN 28, glucose 116. Troponin was less than 0.012, EKG showing sinus rhythm with complete heart block and wide QRS. BNP was 575. Chest x-ray showed atelectasis versus pneumonia in the right lung base. Patient is admitted to community acquired pneumonia for anticipated greater than 2 midnights with pulmonology and ID on consult. Review of Systems Pertinent positives and negatives as discussed in HPI, a complete review of systems was performed and all other systems are negative. Past Medical History Past Medical History: Atrial Fibrillation, Coronary Artery Disease (CAD), Heart Failure, COPD, Diabetes Mellitus, Hypertension History of Any Multi-Drug Resistant Organisms: None Reported Past Surgical History: Appendectomy, Coronary Bypass/CABG, Heart Catheterization, Joint Replacement, Orthopedic Surgery, Pacemaker Past Anesthesia/Blood Transfusion Reactions: No Reported Reaction Type of Cardiac Device: Permanent Pacemaker Device Placement Date:: 2004 Past Psychological History: No Psychological Hx Reported Smoking Status: Former smoker Past Alcohol Use History: None Reported Past Drug Use History: None Reported - Past Family History Father Additional Family Medical History / Comment(s): chronic cardiac disease Medications and Allergies Home Medications Medication Instructions Recorded Confirmed Type Aspirin [[place] Aspirin EC] 81 mg PO DAILY 07/13/18 01/29/20 History Docusate [Colace] 200 mg PO HS 07/13/18 01/29/20 History Flaxseed Oil 1,000 mg PO DAILY 07/13/18 01/29/20 History Rosuvastatin Calcium [Crestor] 5 mg PO SUWE 07/13/18 01/29/20 History Warfarin Sodium [Coumadin] 3.75 mg PO SUMOWEFR 07/13/18 01/29/20 History Warfarin [Coumadin] 2.5 mg PO TUTHSA 07/13/18 01/29/20 History Spironolactone [Aldactone] 50 mg PO DAILY #60 tab 07/25/18 01/29/20 Rx Albuterol Nebulized [Ventolin 2.5 mg INHALATION RT-Q6H 01/29/20 01/29/20 History Nebulized] Carvedilol [Coreg*] 12.5 mg PO BID 01/29/20 01/29/20 History Cholecalciferol [Vitamin D3 (25 1,000 unit PO DAILY 01/29/20 01/29/20 History Mcg = 1000 Iu)] Cranberry Fruit Extract [Cranberry] 500 mg PO DAILY 01/29/20 01/29/20 History Hydrocodone/Acetaminophen [[place] 1 tab PO Q4H PRN 01/29/20 01/29/20 History 10-325] Ipratropium Nebulized [Atrovent 0.5 mg INHALATION RT-Q6H 01/29/20 01/29/20 History Nebulized 0.2 MG/ML] Lidocaine 2% Gel [Xylocaine Jelly 1 applic TOPICAL PC-LUNCH 01/29/20 01/29/20 History 2%] Allergies Allergy/AdvReac Type Severity Reaction Status Date / Time sulfamethoxazole Allergy Unknown Verified 01/29/20 13:45 [From Bactrim] trimethoprim [From Bactrim] Allergy Unknown Verified 01/29/20 13:45 gabapentin AdvReac MOOD Verified 01/29/20 13:45 CHANGES Physical Exam Vitals: Vital Signs Temp Pulse Resp BP Pulse Ox 01/29/20 17:25 97.7 F 60 18 156/92 95 01/29/20 16:39 60 01/29/20 16:33 60 01/29/20 16:30 60 20 177/98 95 01/29/20 13:20 60 20 110/50 97 01/29/20 11:36 97.9 F 60 22 160/82 97 Intake and Output 01/29/20 01/29/20 01/29/20 06:59 14:59 22:59 Other: Weight 113.398 kg General: [non toxic], [no distress], [appears at stated age] Derm: [warm], [dry] Head: [atraumatic], [normocephalic], [symmetric] Eyes: [EOMI], [no lid lag], [anicteric sclera] Mouth: [no lip lesion], [mucus membranes moist] Cardiovascular: [S1S2 reg], [no murmur], [positive DP pulse bilateral], Lungs: [Decreased breath sounds bilateral], [no rhonchi, no rales] , [no accessory muscle use] Abdominal: [soft], [ nontender to palpation], [no guarding], [no appreciable organomegaly] Ext: [no gross muscle atrophy], [no edema], [no contractures], 2+ pitting edema left greater than right with chronic venous stasis changes Neuro: [ CN II-XI grossly intact], [no focal neuro deficits] Psych: [Alert], [oriented], [appropriate affect] Results CBC & Chem 7: 01/29/20 11:53 01/29/20 11:53 Labs: Abnormal Lab Results - Last 24 Hours (Table) 01/29/20 01/29/20 01/29/20 Range/Units 11:53 11:53 11:53 WBC 10.9 H (3.8-10.6) k/uL Neutrophils # 8.9 H (1.3-7.7) k/uL Lymphocytes # 0.7 L (1.0-4.8) k/uL PT 22.8 H (9.0-12.0) sec INR 2.3 H (<1.2) APTT 33.8 H (22.0-30.0) sec BUN 28 H (9-20) mg/dL Glucose 116 H (74-99) mg/dL Assessment and Plan Assessment: Community-acquired pneumonia Prerenal azotemia COPD Atrial fibrillation CAD Abdominal aortic aneurysm Systolic CHF Patient is leukocytosis and chest x-ray for pneumonia. He does not meet sepsis criteria. Lactic acid negative. He'll be started on Zosyn and levofloxacin IV. Sputum culture and blood cultures have been ordered. Tylenol as needed for fever. Plans to repeat chest x-ray tomorrow morning. COVID 19 testing pending. Start normal saline at 50 cc per hour. Follow pro-calcitonin. Pulmonology and infectious disease is consulted. Telemetry monitoring. BUN 28 with normal Creatinine. Possibly related to dehydration. IV hydration as above. Avoid nephrotoxins. Repeat BMP tomorrow morning. Patient started on Solu-Medrol. DuoNeb scheduled and as needed for shortness of breath and wheezing. Supplemental O2 to maintain a saturation greater than 92%. Patient currently in sinus. Daily INR. Coumadin to be dosed by pharmacy. Restart Coreg for rate control. Restart aspirin, rosuvastatin and beta vidhi. CT chest July 2018 shows a 6 cm thoracic aortic aneurysm. reports that patient follows with vascular surgery in the outpatient setting and they have planned no intervention. He appears euvolemic. Continue beta vidhi and spinolactone. Unsure why patient is not on EDDIE inhibitor. DVT prophylaxis: [Warfarin] Discussed with: [Patient and ] Anticipated discharge: [2-3 days] Anticipated discharge place: [Home] A total of [45] minutes was spent on the care of this complex patient more than 50% of the time was spent in counseling and care coordination. Patient names his Nathalie decision maker if he can't make decisions for himself. Patient would like to be full code.
[2020-01-29 18:11] LABS: Glucose,Whole Blood 188 mg/dL (75-99)
[2020-01-29] MEDS ORDERED: WARFARIN 2.5 MG TAB PO ONE (18:30)
[2020-01-29] MEDS: PIPERACILLIN-TAZOBACTAM 3.375 GM in SODIUM CHLORIDE 0.9% 100 ML IVPB SCH (18:54)
[2020-01-29] MEDS: methylPREDNISolone SOD SUCCI 125 MG/2 ML VIAL IV SCH ×2 (18:54→23:51)
[2020-01-29] MEDS: CARVEDILOL 12.5 MG TAB PO SCH (18:58)
[2020-01-29 19:37] LABS: Glucose,Whole Blood 206 mg/dL (75-99)
[2020-01-29] MEDS ORDERED: DOCUSATE 100 MG CAP PO SCH (21:00)
[2020-01-29] MEDS: HYDROcodone/APAP 10-325MG 1 EACH TAB PO PRN (21:56)
[2020-01-30 01:01] LABS: Glucose,Whole Blood 142 mg/dL (75-99)
[2020-01-30] MEDS: HYDROcodone/APAP 10-325MG 1 EACH TAB PO PRN ×3 (01:48→11:19)
[2020-01-30] MEDS: PIPERACILLIN-TAZOBACTAM 3.375 GM in SODIUM CHLORIDE 0.9% 100 ML IVPB SCH ×4 (03:30→12:03)
[2020-01-30 04:22] VITALS: RESP 18
[2020-01-30 06:08] LABS: Glucose,Whole Blood 152 mg/dL (75-99)
[2020-01-30] MEDS: CARVEDILOL 12.5 MG TAB PO SCH (06:29)
[2020-01-30] MEDS: methylPREDNISolone SOD SUCCI 125 MG/2 ML VIAL IV SCH ×2 (06:29→11:18)
--- NOTE | 2020-01-30 07:01 | XR ---
EXAMINATION TYPE: XR chest 2V DATE OF EXAM: 01/30/2020 HISTORY: pneumonia. REFERENCE: Previous study dated 01/29/2020. FINDINGS: There is a bipolar pacemaker place on the left. The lungs are overinflated. The heart is enlarged. There is mild vascular congestion without natalya ed shannen. There continues to be a mild infiltrate at the right lung base. IMPRESSION: 1. COPD. 2. CARDIOMEGALY. 3. CONTINUING RIGHT BASILAR AIRSPACE DISEASE.
[2020-01-30 07:08] LABS: Basophils % (A) 0 %; Eosinophils # (A) 0.1 k/uL (0-0.7); Eosinophils % (A) 1 %; HCT 50.6 % (39.0-53.0); HGB 15.9 gm/dL (13.0-17.5); Lymphocytes # (A) 0.6 k/uL (1.0-4.8); Lymphocytes % (A) 7 %; MCH 29.5 pg (25.0-35.0); MCHC 31.4 g/dL (31.0-37.0); MCV 94.2 fL (80.0-100.0); Mean Platelet Volume 7.8; Monocytes # (A) 0.2 k/uL (0-1.0); Monocytes % (A) 3 %; Neutrophils # (A) 7.8 k/uL (1.3-7.7); Neutrophils % (A) 89 %; Platelet Count 192 k/uL (150-450); RBC 5.37 m/uL (4.30-5.90); RDW 13.6 % (11.5-15.5); WBC 8.7 k/uL (3.8-10.6)
[2020-01-30 07:13] LABS: INR 2.6 (<1.2); Prothrombin Time 25.4 sec (9.0-12.0)
[2020-01-30 07:19] LABS: Calcium 9.5 mg/dL (8.4-10.2); Potassium 4.5 mmol/L (3.5-5.1); Total Bilirubin 0.5 mg/dL (0.2-1.3); Total Protein 6.3 g/dL (6.3-8.2)
[2020-01-30] MEDS: IPRATROPIUM-ALBUTEROL 3 ML NEB INHALATION SCH ×2 (07:29→11:05)
[2020-01-30] MEDS ORDERED: SPIRONOLACTONE 25 MG TAB PO SCH (09:00)
[2020-01-30] MEDS ORDERED: ASPIRIN 81 MG PO SCH (09:00)
--- NOTE | 2020-01-30 10:02 | P.DS ---
Providers Date of admission: 01/29/20 13:44 Expected date of discharge: 01/30/20 Attending physician: Allison Roach MD Consults: 01/29/20 17:47 Consult Physician Routine Consulting Provider: Omi Field Consult Reason/Comments: PNA Do you want consulting provider notified?: Yes Consult Physician Routine Consulting Provider: Mercedes Ramos Consult Reason/Comments: PNA Do you want consulting provider notified?: Yes Primary care physician: Sergio Restrepo MD Hospital Course: 84-year-old male with PMH of CAD post CABG, COPD and emphysema, abdominal aortic aneurysm, atrial fibrillation on Coumadin, systolic CHF, pacemaker for complete heart block, presents the ED for shortness of breath. His is at bedside providing majority of the history. reports that patient woke up this morning with labored breathing. He received Robitussin, DuoNeb treatment and went back to sleep. Patient woke up a couple hours later without any resolution of symptoms which prompted his to bring him to the ED. reports that his O2 saturation was within normal limits and his temperature was regular. Patient is on 2 L at bedtime and as needed throughout the day. Patient reports cough that is chronic productive of clear white sputum. He reports lower extremity swelling left greater than right is chronic in nature due to an injury of his left lower extremity he suffered while in the [employer]. Patient also reports one episode of emesis while eating a sandwich in the ED. He denies any headache, fever or chills, chest pain, palpitations, changes in urination or bowel habits. No changes in appetite or weight. He denies any dizziness, numbness/weakness/tingling of the extremities. In the ED, his vital signs are stable except for elevated BP. CBC showed leukocytosis of 10.9. INR was 2.3. CMP showed BUN 28, glucose 116. Troponin was less than 0.012, EKG showing sinus rhythm with complete heart block and wide QRS. BNP was 575. Chest x-ray showed atelectasis versus pneumonia in the right lung base. Patient is admitted to community acquired pneumonia for anticipated greater than 2 midnights with pulmonology and ID on consult. Patient did not meet sepsis criteria. Lactic acid was negative. He was started on Zosyn and levofloxacin IV. Sputum culture and blood cultures were ordered. He was started on normal saline at 50 mL per hour. Pro-calcitonin was also ordered. Pulmonology and infectious disease was consulted. He was started on Solu-Medrol for his COPD along with DuoNeb scheduled and as needed along with supplemental oxygen. Repeat chest x-ray showed persistent right lobe infiltrate. Patient was seen and examined this morning. No acute events overnight. Patient states it is generally feeling well. He was able to ambulate to the washroom without any difficulties which is his baseline. Patient is requesting possible discharge home. He denies any chest pain, shortness breath or palpitations. No nausea or vomiting. No fever or chills. He is on 2 L nasal cannula saturating high 90s. General: [non toxic], [no distress], [appears at stated age] Derm: [warm], [dry], dressing over the left shoulder from basal cell carcinoma biopsy Head: [atraumatic], [normocephalic], [symmetric] Eyes: [EOMI], [no lid lag], [anicteric sclera] Mouth: [no lip lesion], [mucus membranes moist] Cardiovascular: [S1S2 reg], [no murmur], [positive DP pulse bilateral], Lungs: [Decreased breath sounds bilateral], [no rhonchi, no rales] , [no accessory muscle use] Abdominal: [soft], [ nontender to palpation], [no guarding], [no appreciable organomegaly] Ext: [no gross muscle atrophy], [no edema], [no contractures], 2+ pitting edema left greater than right with chronic venous stasis changes Neuro: [no focal neuro deficits] Psych: [Alert], [oriented], [appropriate affect] Community-acquired pneumonia Prerenal azotemia COPD Atrial fibrillation CAD Abdominal aortic aneurysm Systolic CHF Patient is leukocytosis (which has resolved) and chest x-ray for pneumonia. He does not meet sepsis criteria. Lactic acid negative. He'll be started on Zosyn and levofloxacin IV. Sputum culture and blood cultures have been ordered. Tylenol as needed for fever. COVID 19 testing pending. Follow pro-calcitonin. Pulmonology and infectious disease is consulted. Telemetry monitoring. Patient is hemodynamically stable and could be considered for discharge on oral antibiotics. BUN 28-24 with normal Creatinine. Possibly related to dehydration. IV hydration as above. Avoid nephrotoxins. Repeat BMP tomorrow morning. Patient started on Solu-Medrol, transitioned to prednisone on discharge. DuoNeb scheduled and as needed for shortness of breath and wheezing. Supplemental O2 to maintain a saturation greater than 92%. Patient currently in sinus. Daily INR. Coumadin to be dosed by pharmacy. Restart Coreg for rate control. Restart aspirin, rosuvastatin and beta vidhi. CT chest July 2018 shows a 6 cm thoracic aortic aneurysm. reports that patient follows with vascular surgery in the outpatient setting and they have planned no intervention. He appears euvolemic. Continue beta vidhi and spinolactone. Unsure why patient is not on EDDIE inhibitor. [Patient admitted for community-acquired pneumonia. He is hemodynamically stable. Pulmonary consultation pending. Plans on DC home today on oral antibiotics and prednisone taper patient is cleared by pulmonology. This complex discharge took about 35 minutes to complete.] Pertinent Studies: Chest x-ray Patient Condition at Discharge: Stable Plan - Discharge Summary Discharge Rx Participant: No New Discharge Prescriptions: New Amoxicillin/Potassium Clav [Augmentin 875-125 Tablet] 1 tab PO Q12HR 6 Days #12 tab methylPREDNISolone Dose Pack [Medrol Dose Pack] 4 mg PO DIRECTED #21 package Continue Warfarin [Coumadin] 2.5 mg PO TUTHSA Warfarin Sodium [Coumadin] 3.75 mg PO SUMOWEFR Rosuvastatin Calcium [Crestor] 5 mg PO SUWE Flaxseed Oil 1,000 mg PO DAILY Docusate [Colace] 200 mg PO HS Aspirin [[place] Aspirin EC] 81 mg PO DAILY Spironolactone [Aldactone] 50 mg PO DAILY #60 tab Ipratropium Nebulized [Atrovent Nebulized 0.2 MG/ML] 0.5 mg INHALATION RT-Q6H Albuterol Nebulized [Ventolin Nebulized] 2.5 mg INHALATION RT-Q6H Hydrocodone/Acetaminophen [[place] 10-325] 1 tab PO Q4H PRN PRN Reason: Pain Cranberry Fruit Extract [Cranberry] 500 mg PO DAILY Lidocaine 2% Gel [Xylocaine Jelly 2%] 1 applic TOPICAL PC-LUNCH Cholecalciferol [Vitamin D3 (25 Mcg = 1000 Iu)] 1,000 unit PO DAILY Carvedilol [Coreg*] 12.5 mg PO BID Discharge Medication List Aspirin [[place] Aspirin EC] 81 mg PO DAILY 07/13/18 [History] Docusate [Colace] 200 mg PO HS 07/13/18 [History] Flaxseed Oil 1,000 mg PO DAILY 07/13/18 [History] Rosuvastatin Calcium [Crestor] 5 mg PO SUWE 07/13/18 [History] Warfarin Sodium [Coumadin] 3.75 mg PO SUMOWEFR 07/13/18 [History] Warfarin [Coumadin] 2.5 mg PO TUTHSA 07/13/18 [History] Spironolactone [Aldactone] 50 mg PO DAILY #60 tab 07/25/18 [Rx] Albuterol Nebulized [Ventolin Nebulized] 2.5 mg INHALATION RT-Q6H 01/29/20 [History] Carvedilol [Coreg*] 12.5 mg PO BID 01/29/20 [History] Cholecalciferol [Vitamin D3 (25 Mcg = 1000 Iu)] 1,000 unit PO DAILY 01/29/20 [History] Cranberry Fruit Extract [Cranberry] 500 mg PO DAILY 01/29/20 [History] Hydrocodone/Acetaminophen [[place] 10-325] 1 tab PO Q4H PRN 01/29/20 [History] Ipratropium Nebulized [Atrovent Nebulized 0.2 MG/ML] 0.5 mg INHALATION RT-Q6H 01/29/20 [History] Lidocaine 2% Gel [Xylocaine Jelly 2%] 1 applic TOPICAL PC-LUNCH 01/29/20 [History] Amoxicillin/Potassium Clav [Augmentin 875-125 Tablet] 1 tab PO Q12HR 6 Days #12 tab 01/30/20 [Rx] methylPREDNISolone Dose Pack [Medrol Dose Pack] 4 mg PO DIRECTED #21 package 01/30/20 [Rx] Follow up Appointment(s)/Referral(s): Sergio Restrepo MD [Primary Care Provider] - 1-2 days Omi Field MD [STAFF PHYSICIAN] - 1 Week Activity/Diet/Wound Care/Special Instructions: Diet: Cardiac low salt Follow-up PCP within 2 days of discharge. Follow up with pulmonology within 1 week of discharge. Follow-up with your supervisor composing room regarding your CAD and systolic CHF. Follow-up with your vascular surgeon regarding abdominal aortic aneurysm. Clinical medications as advised. Come to the ED or call 911 for worsening chest pain, shortness of breath, palpitations, dizziness, fevers greater than 100.4 Fahrenheit. Discharge Disposition: HOME SELF-CARE
[2020-01-30 11:25] VITALS: BP 173/79; PULSE 60; TEMP 97.8
[2020-01-30] MEDS ORDERED: LIDOCAINE 2% GEL 30 ML TUBE TOPICAL SCH (13:30)
[2020-01-30] MEDS ORDERED: LEVOFLOXACIN 750MG-D5W PMX 750 MG in DEXTROSE/WATER 1 150ML.BAG IVPB SCH ×2 (14:00→16:00)
--- NOTE | 2020-01-30 14:12 | CONS ---
CONSULTATION DATE OF SERVICE: 01/30/2020 REASON FOR CONSULTATION: Pneumonia. HISTORY OF PRESENT ILLNESS: The patient is an 84-year-old male with a past medical history significant for COPD, congestive heart failure, chronic atrial fibrillation. The patient presented to the ER on 01/28 ( ) pneumonia with chief complaints of increasing shortness of breath. The patient's symptom has been going on for a day or 2 before he presented to the hospital. The patient's shortness of breath has been moderate in intensity and more on exertion. The patient also has a cough which has been moderate intensity, bringing up some thick whitish sputum. No hemoptysis. No chest pain. No nausea, no vomiting. No abdominal pain. No choking on food or any diarrhea. With these symptoms the patient has been evaluated by the physician on arrival to the ER. The patient has been afebrile. The patient did have mildly elevated white count 10.9. Repeat white count normal at 8.7 this morning. Kidney function has been normal. Liver enzymes are normal: [place] PCR was negative. The patient did have a chest x-ray with subsegmental atelectasis versus early pneumonia right lung base and the patient has been treated with Zosyn and Levaquin. Infection Disease was consulted last night. Chest x-ray this morning shows continued right base airspace disease. However, the patient says he is feeling much better. The patient has already dressed up and currently has been discharged by the admitting team on oral Augmentin and Medrol Dosepak and the patient is insisting on going home. REVIEW OF SYSTEMS: Positive points have been mentioned in HPI. Rest of systems are negative. PAST MEDICAL HISTORY: Atrial fibrillation, coronary disease, heart failure, COPD, diabetes mellitus, hypertension. PAST SURGICAL HISTORY: Appendectomy, coronary artery bypass grafting, joint replacement, and pacemaker placement. SOCIAL HISTORY: Remote history of smoking. No drinking or drug use. FAMILY HISTORY: Father history of heart disease. ALLERGIES: BACTRIM and GABAPENTIN. MEDICATIONS: The patient is currently on Tylenol, [place], DuoNeb, aspirin, Lipitor, Coreg, Levaquin, Zosyn, Aldactone and Coumadin. PHYSICAL EXAMINATION: Blood pressure 173/79 with a pulse of 60, temperature 97.8. He is 95% 2 L nasal cannula. General description is an elderly male up in the chair in no distress. No tachypnea or accessory muscle of respiration use. HEENT examination shows no pallor or scleral icterus. Oral cavity dry. LUNGS: Unlabored breathing, decreased breath sounds in the base, with no wheeze. HEART: S1, S2. Regular rhythm. ABDOMEN: Soft, no tenderness. No rigidity. EXTREMITIES: Some chronic swelling. No redness. NEUROLOGIC: The patient is awake, alert, oriented. Mood and affect normal. LABS: Hemoglobin is 15.8, white count 8.7. Admission white count 10.9 with left shift. BUN of 24, creatinine 0.97. Peterson PCR negative. Blood culture has been negative so far. Sputum collected for cultures currently pending. DIAGNOSTIC IMPRESSION AND PLAN: Patient admitted to the hospital with increasing shortness of breath and cough with evidence of right lower lobe pneumonia, possible community-acquired. The patient already showing clinical improvement on Zosyn and Levaquin and has been insisting on going home with workup still pending and the patient seemed to have been discharged by the admitting team. PLAN: 1. Continue therapy with oral Augmentin as prescribed. 2. The patient advised if any recurrence of worsening respiratory symptoms or develops any fever, to come back to the hospital. Questions and concerns were answered. MMODL / IJN: [id number] /
--- NOTE | 2020-01-30 15:06 | P.CNPUL ---
History of Present Illness Consult date: 01/30/20 Reason for consult: pneumonia History of present illness: 84-year-old male patient Hospital as for increased shortness of breath. Feeling already much better and the hospitalist group has already made the patient is to discharge this patient home. They wanted me to see the patient to make sure the discharge was appropriate. I evaluated this patient. I reviewed the records. He has CAD, previous bypass, previous history of COPD, chronic atrial fibrillation maintained on Coumadin with a therapeutic PT/INR, chronic systolic heart failure and the patient has a pacemaker in place for complete AV block. The patient also has history of a power PICC aneurysm. The patient came into the emergency department because of increased cough and congestion and some shortness of breath. He typically uses oxygen at 2 L per minute at bedtime. The sputum was clear whitish in color. No hemoptysis. No pleurisy. No altered mentation. He has chronic lower extremity edema left more than right. No syncope. In the ED, the patient had a white second of 10.9. INR was 2.3 and was therapeutic. Troponin was at 0.012 and EKG showed a paced rhythm. The patient chest x-ray shows atelectatic changes in the right lung base. The patient was started on Zosyn and Levaquin. Cultures of been negative thus far. The pro-calcitonin level has not been resulted yet. Renal function is stable. No fever and the patient continues to be on 2 L of oxygen by nasal cannula. The patient or to be seen by ID. Abrasions are being made to discharge this patient home on Augmentin. Review of Systems A 14 point review of system was done and the positive findings are almost above history of present illness. No altered mentation. No syncope. No chest pain. Some cough and congestion. Covid 19 testing is still pending and the pro- calcitonin is still pending for now. Blood culture been negative. Past Medical History Past Medical History: Atrial Fibrillation, Coronary Artery Disease (CAD), Heart Failure, COPD, Diabetes Mellitus, Hypertension History of Any Multi-Drug Resistant Organisms: None Reported Past Surgical History: Appendectomy, Coronary Bypass/CABG, Heart Catheterization, Joint Replacement, Orthopedic Surgery, Pacemaker Past Anesthesia/Blood Transfusion Reactions: No Reported Reaction Type of Cardiac Device: Permanent Pacemaker Device Placement Date:: 2004 Past Psychological History: No Psychological Hx Reported Smoking Status: Former smoker Past Alcohol Use History: None Reported Past Drug Use History: None Reported - Past Family History Father Additional Family Medical History / Comment(s): chronic cardiac disease Medications and Allergies Home Medications Medication Instructions Recorded Confirmed Type Aspirin [[place] Aspirin EC] 81 mg PO DAILY 07/13/18 01/29/20 History Docusate [Colace] 200 mg PO HS 07/13/18 01/29/20 History Flaxseed Oil 1,000 mg PO DAILY 07/13/18 01/29/20 History Rosuvastatin Calcium [Crestor] 5 mg PO SUWE 07/13/18 01/29/20 History Warfarin Sodium [Coumadin] 3.75 mg PO SUMOWEFR 07/13/18 01/29/20 History Warfarin [Coumadin] 2.5 mg PO TUTHSA 07/13/18 01/29/20 History Spironolactone [Aldactone] 50 mg PO DAILY #60 tab 07/25/18 01/29/20 Rx Albuterol Nebulized [Ventolin 2.5 mg INHALATION RT-Q6H 01/29/20 01/29/20 History Nebulized] Carvedilol [Coreg*] 12.5 mg PO BID 01/29/20 01/29/20 History Cholecalciferol [Vitamin D3 (25 1,000 unit PO DAILY 01/29/20 01/29/20 History Mcg = 1000 Iu)] Cranberry Fruit Extract [Cranberry] 500 mg PO DAILY 01/29/20 01/29/20 History Hydrocodone/Acetaminophen [[place] 1 tab PO Q4H PRN 01/29/20 01/29/20 History 10-325] Ipratropium Nebulized [Atrovent 0.5 mg INHALATION RT-Q6H 01/29/20 01/29/20 History Nebulized 0.2 MG/ML] Lidocaine 2% Gel [Xylocaine Jelly 1 applic TOPICAL PC-LUNCH 01/29/20 01/29/20 History 2%] Amoxicillin/Potassium Clav 1 tab PO Q12HR 6 Days #12 tab 01/30/20 Rx [Augmentin 875-125 Tablet] methylPREDNISolone Dose Pack 4 mg PO DIRECTED #21 package 01/30/20 Rx [Medrol Dose Pack] Allergies Allergy/AdvReac Type Severity Reaction Status Date / Time sulfamethoxazole Allergy Unknown Verified 01/29/20 13:45 [From Bactrim] trimethoprim [From Bactrim] Allergy Unknown Verified 01/29/20 13:45 gabapentin AdvReac MOOD Verified 01/29/20 13:45 CHANGES Physical Exam Vitals: Vital Signs Temp Pulse Pulse Resp BP BP Pulse Ox 01/30/20 11:22 97.8 F 60 18 173/79 95 01/30/20 11:19 64 01/30/20 11:07 60 01/30/20 08:00 97.7 F 60 18 149/77 96 01/30/20 07:38 68 01/30/20 07:30 64 01/30/20 04:00 97.7 F 61 18 175/83 92 L 01/30/20 00:00 98.8 F 60 20 143/68 93 L 01/29/20 20:00 98.8 F 60 20 169/75 92 L 01/29/20 19:24 66 01/29/20 19:16 60 01/29/20 17:25 97.7 F 60 18 156/92 95 01/29/20 16:39 60 01/29/20 16:33 60 01/29/20 16:30 60 20 177/98 95 01/29/20 15:32 98.5 F 60 22 173/82 92 L Intake and Output 01/29/20 01/30/20 01/30/20 22:59 06:59 14:59 Intake Total 120 Output Total 650 250 Balance -650 -130 Intake: Oral 120 Output: Urine 650 250 Other: Voiding Method Urinal Urinal Urinal Weight 113.398 kg 135 kg Gen. appearance obese, comfortable likely distress with a BMI of 40.4 Head exam was generally normal. There was no scleral icterus or corneal arcus. Mucous membranes were moist. Neck was supple and without jugular venous distension, thyromegaly, or carotid bruits. Carotids were easily palpable bilaterally. There was no adenopathy. Mallampati class IV with significant crowding of posterior pharynx. Lungs sounds are diminished in lung bases bilaterally otherwise clear Cardiac exam revealed the PMI to be normally situated and sized. The rhythm was regular and no extrasystoles were noted during several minutes of auscultation. The first and second heart sounds were normal and physiologic splitting of the second heart sound was noted. There were no murmurs, rubs, clicks, or gallops. Abdomen is obese soft nontender. No organomegaly. No direct tenderness upon tensile guarding. Extremities revealed asymmetrical swelling in lower extremities bilaterally +2 pitting edema on the left +1 on the right along with chronic venous stasis bi laterally. Skin no open wounds or ulceration. Chronic venous stasis lower extremities bilaterally. No cellulitis. Neurologically the patient is awake and alert and the patient has no focal neurological deficit. Results - Laboratory Findings CBC and BMP: 01/30/20 05:58 01/30/20 05:58 PT/INR, D-dimer PT 25.4 sec (9.0-12.0) H 01/30/20 05:58 INR 2.6 (<1.2) H 01/30/20 05:58 Abnormal lab findings: Abnormal Labs 01/29/20 01/29/20 01/29/20 11:53 11:53 11:53 WBC 10.9 H Neutrophils # 8.9 H Lymphocytes # 0.7 L PT 22.8 H INR 2.3 H APTT 33.8 H BUN 28 H Glucose 116 H POC Glucose (mg/dL) 01/29/20 01/29/20 01/30/20 18:10 19:36 00:57 WBC Neutrophils # Lymphocytes # PT INR APTT BUN Glucose POC Glucose (mg/dL) 188 H 206 H 142 H 01/30/20 01/30/20 01/30/20 05:58 05:58 05:58 WBC Neutrophils # 7.8 H Lymphocytes # 0.6 L PT 25.4 H INR 2.6 H APTT BUN 24 H Glucose 152 H POC Glucose (mg/dL) 01/30/20 06:07 WBC Neutrophils # Lymphocytes # PT INR APTT BUN Glucose POC Glucose (mg/dL) 152 H - Diagnostic Findings Chest x-ray: image reviewed Assessment and Plan Plan: 1 chronic dyspnea with interval worsening shortness of breath, likely related to a limited pneumonia involving the right lower lobe. Currently clinically stable. No signs of sepsis. Oxygenation is stable and the blood cultures been negative. 2 obesity with a BMI of 40.4 3 coronary artery disease with previous bypass surgery 4 chronic systolic heart failure compensated and the patient has chronic edema lower extremities, asymmetric with left more than right edema and evidence of chronic venous stasis lower extremities bilaterally 5 COPD 6 history of atrial fibrillation current rhythm is paced 7 about the aneurysm 8 therapeutic PT/INR 9 hypertension 10 hyperlipidemia 11 diabetes mellitus type 2 Plan Resume home medication discharged patient home on a course of Augmentin 875 mg by mouth twice a day for 7 days and a Medrol Dosepak Outpatient follow-up if needed.
[2020-01-30] MEDS ORDERED: WARFARIN 2.5 MG TAB PO ONE (18:00)
[2020-01-31] MEDS ORDERED: ATORVASTATIN 10 MG TAB PO SCH (21:00)
== END 2020-01-30 13:29 | disposition home or self-care (01) | DRG 194 ==
LOC: EC 11:31 → 3SCARD 13:44
PROVIDERS: ADMIT Family Medicine; ATTEND Family Medicine
DX: J18.9 Pneumonia, unspecified organism (principal); I48.20 Chronic atrial fibrillation, unspecified; L03.116 Cellulitis of left lower limb; L03.115 Cellulitis of right lower limb; I50.22 Chronic systolic (congestive) heart failure; I44.2 Atrioventricular block, complete; I11.0 Hypertensive heart disease with heart failure; I71.2 Thoracic aortic aneurysm, without rupture; J43.9 Emphysema, unspecified; E11.9 Type 2 diabetes mellitus without complications; Z20.828 Contact with and (suspected) exposure to other viral communicable diseases; E86.0 Dehydration; C44.619 Basal cell carcinoma of skin of left upper limb, including shoulder; I25.10 Atherosclerotic heart disease of native coronary artery without angina pectoris; I87.8 Other specified disorders of veins; R39.2 Extrarenal uremia; Z79.82 Long term (current) use of aspirin; Z79.01 Long term (current) use of anticoagulants; Z79.899 Other long term (current) drug therapy; Z95.0 Presence of cardiac pacemaker; Z95.1 Presence of aortocoronary bypass graft; Z90.49 Acquired absence of other specified parts of digestive tract; Z87.19 Personal history of other diseases of the digestive system; Z98.890 Other specified postprocedural states; Z96.60 Presence of unspecified orthopedic joint implant; Z87.891 Personal history of nicotine dependence; Z88.2 Allergy status to sulfonamides; Z82.49 Family history of ischemic heart disease and other diseases of the circulatory system
CPT/HCPCS: 36415; 71046; 80053; 83605; 83735; 83880; 84145; 84484; 85025; 85610; 85730; 87040; 93005; 94640; 96365; 96375; 99285